=== PATIENT | male | born 1955 | race Caucasian/White ===

== ENCOUNTER 2020-08-18 13:11 | Emergency (ER) | payer SELFPAY ==
[2020-08-18 13:30] VITALS: BP 151/97; PULSE 117; RESP 16; TEMP 36.4; O2SAT 98; BMI 20.4
--- NOTE | 2020-08-18 13:37 | XR_ITS ---
PROCEDURE: XR FOOT LT MIN 3V CLINICAL INDICATION: R/O OSTEOMYELITIS Necrotic area in the plantar region COMPARISON: No exams were available for comparison FINDINGS: No fracture or dislocation. No lytic or blastic change. There is normal mineralization. There is a old fracture involving the mid shaft of the 5th metatarsal. No acute fracture or dislocation is evident. No lytic or blastic change. No soft tissue gas or radiopaque foreign body. Other findings:None. IMPRESSION: Healing 5th metatarsal fracture. Dictated by: Syed Ford MD 08/18/2020 14:23 Syed Ford MD in [place] 08/18/2020 14:23
[2020-08-18 14:30] VITALS: BP 149/94; PULSE 106; RESP 18; O2SAT 98
[2020-08-18 14:32] LABS: Basophils # 0.1 K/mm3 (0-0.2); Basophils % 0.4 % (0.1-2.0); Eosinophils # 0.1 K/mm3 (0.0-0.4); Eosinophils % 0.9 % (0.1-12.0); Hematocrit 49.1 % (42.0-52.0); Hemoglobin 16.5 g/dL (14.1-18.0); Lymphocytes # 2.6 K/mm3 (0.7-4.5); Lymphocytes % 19.9 % (10-50); Mean Corpuscular HGB Conc 33.5 g/dL (31.8-35.4); Mean Corpuscular Hemoglobin 31.1 pg (27.0-31.2); Mean Corpuscular Volume 92.8 fl (80-94); Mean Platelet Volume 6.9 fl (7.4-10.4); Monocytes # 0.5 K/mm3 (0.1-1.0); Neutrophils # 9.6 K/mm3 (1.8-7.8); Neutrophils % 74.9 % (37.0-80.0); Platelet Count 277 K/mm3 (142-424); Red Blood Count 5.29 M/mm3 (4.60-6.20); Red Cell Distribution Width 13.7 % (11.5-17.5); White Blood Count 12.9 K/mm3 (4.8-10.8)
[2020-08-18 14:34] LABS: Chloride 103 mmol/L (98-107)
[2020-08-18 14:35] LABS: Potassium 3.8 mmoL/L (3.5-5.1); Sodium 136 mmol/L (136-145)
[2020-08-18 14:37] LABS: Alanine Aminotransferase 19 U/L (12-78); Aspartate Amino Transferase 32 U/L (17-59); Blood Urea Nitrogen 12 mg/dl (9-20); Creatinine Clearance Estimated 75 mL/min (50-200); Estimated Glomerular Filt Rate 85 ml/min (>60); GFR (African American) 103 ML/MIN (>60)
[2020-08-18 14:38] LABS: Albumin/Globulin Ratio 1.4 (1.1-1.8); Alkaline Phosphatase 102 U/L (38-126); Anion Gap 12.8 mEq/L (5-15); Bilirubin,Total 0.7 mg/dl (0.2-1.3); Calcium 10.1 mg/dl (8.4-10.2); Carbon Dioxide 24 mmol/L (22.0-30.0); Globulin 3.5 g/dL (1.3-3.2); Glucose 160 mg/dl (74-100); Total Protein,Serum 8.5 g/dl (6.3-8.2)
--- NOTE | 2020-08-18 14:53 | HMH.EDGENADL ---
ED Disposition Clinical Impression: Cellulitis of left foot Ulcer of left heel Qualifiers: Non-pressure ulcer stage: limited to breakdown of skin Qualified Code(s): L97.421 - Non-pressure chronic ulcer of left heel and midfoot limited to breakdown of skin Disposition: Home, Self-Care Condition on Discharge: Good Instructions: Cellulitis Prescriptions: Sulfamethoxazole/Trimethoprim [Bactrim 400-80 mg (SS) Tablet] 1 tab PO BID 10 Days #20 tab Prescription Printed cephALEXin [cephALEXin 500mg capsule*] 500 mg PO QID 10 Days #40 cap Prescription Printed Referrals: Lilian Crenshaw DPM [Staff Physician] - - Critical Care Critical Care Time: No Attestation: On 08/18/20, the high probability of a clinically significant, sudden or life threatening deterioration of the following system(s) required my full and direct attention, intervention and personal management. The time I documented below is in addition to time spent performing reported procedures but includes the following listed in this critical care notation. Medical Decision Making - Medical Records Medical records reviewed: Yes: I reviewed the patient's medical records. - Parish Inquiry Pt receiving controlled substance: No Vital Signs: 08/18/20 13:30 08/18/20 14:30 08/18/20 15:00 Temperature 97.6 F Temperature Source Oral Pulse Rate 106 H 102 H Pulse Rate [Radial] 117 H Respiratory Rate 16 18 18 Blood Pressure 149/94 H 143/91 H Blood Pressure [Right Arm] 151/97 H Blood Pressure Mean 112 117 Blood Pressure Mean [Right Arm] 115 Blood Pressure Position [Right Arm] Sitting 02 Sat by Pulse Oximetry 98 98 96 Oxygen Delivery Method Room Air - Lab Data Lab Results 08/18/20 14:25: WBC 12.9 H, RBC 5.29, Hgb 16.5, Hct 49.1, MCV 92.8, MCH 31.1, MCHC 33.5, RDW 13.7, Plt Count 277, MPV 6.9 L, Neut % (Auto) 74.9, Lymph % (Auto) 19.9, [place] % (Auto) 4.0, Eos % (Auto) 0.9, Baso % (Auto) 0.4, Neut # (Auto) 9.6 H, Lymph # (Auto) 2.6, [place] # (Auto) 0.5, Eos # (Auto) 0.1, Baso # (Auto) 0.1 08/18/20 14:25: Sodium 136, Potassium 3.8, Chloride 103, Carbon Dioxide 24, Anion Gap 12.8, BUN 12, Creatinine 0.90, Estimated Creat Clear 75, Estimated GFR 85, Est GFR ( Amer) 103, Glucose 160 H, Calcium 10.1, Total Bilirubin 0.7, AST 32, ALT 19, Alkaline Phosphatase 102, Total Protein 8.5 H, Albumin 5.0, Globulin 3.5 H, Albumin/Globulin Ratio 1.4 Result diagrams: 08/18/20 14:25 08/18/20 14:25 Orders (Tests/Meds): ED MEDICATIONS Generic Name Dose Route Start Last Admin Trade Name Freq PRN Reason Stop Dose Admin Ceftriaxone Sodium 1 gm/ 50 mls @ 100 mls/hr 08/18/20 15:00 08/18/20 15:03 Sodium Chloride IV 09/01/20 14:59 100 mls/hr Q24H JORGE Administration Protocol Discontinued Medications Generic Name Dose Route Start Last Admin Trade Name Freq PRN Reason Stop Dose Admin Trimethoprim/Sulfamethoxazole 1 each 08/18/20 14:53 08/18/20 15:09 Sulfa/Trimethoprim 1 Tablet PO 08/18/20 14:54 1 each ONCE ONE Administration Protocol - Radiology Data #1 Image(s): Foot/Toes Image Reviewed: Yes I reviewed the patient's radiology results, Yes I have reviewed radiologist's interpretation FINDINGS: No fracture or dislocation. No lytic or blastic change. There is normal mineralization. There is a old fracture involving the mid shaft of the 5th metatarsal. No acute fracture or dislocation is evident. No lytic or blastic change. No soft tissue gas or radiopaque foreign body. Other findings:None. IMPRESSION: Healing 5th metatarsal fracture. - Reevaluation(s) Time: 15:43 Reevaluation #1: On reevaluation, the patient is feeling better. He does have evidence of a old healing metatarsal fracture. Patient does have findings consistent with cellulitis. I do believe he will benefit from wound care evaluation and podiatry. Patient was given initial dose antibiotics in the emergency department. He is to
[2020-08-18 15:00] VITALS: BP 143/91; PULSE 102; RESP 18; O2SAT 96
[2020-08-18 16:11] VITALS: BP 152/98; PULSE 78; RESP 16; TEMP 36.6; O2SAT 98
== END 2020-08-18 16:15 | disposition home or self-care (01) ==
PROVIDERS: Emergency Provider Emergency Medicine
DX: L03.116 Cellulitis of left lower limb (principal); L97.421 Non-pressure chronic ulcer of left heel and midfoot limited to breakdown of skin
CPT/HCPCS: 73630; 80053; 85025; 96365; 99282

== ENCOUNTER → 2020-08-25 10:07 | Outpatient (CLI) | payer SELFPAY ==
--- NOTE | 2020-08-25 10:09 | US_ITS ---
APPROVED REPORT Exam Type: Ankle to Brachial Index Track Watchman: Avelina Nicole RCS, RVS Indications Claudication: Non-healing Ulcer: Rest Pain: History of Smoking Decreased pulses-Left foot, Trophic nails Risk Factors Current Smoker Pressures/Indices Right Indices Left Indices Brachial 143.00 mmHg Brachial 148.00 mmHg Low Thigh 149.00 mmHg 1.01 Low Thigh 138.00 mmHg 0.93 Calf 148.00 mmHg 1.00 Calf 91.00 mmHg 0.61 Ankle(PT) 140.00 mmHg 0.95 Ankle(PT) 71.00 mmHg 0.48 Ankle(DP) 136.00 mmHg 0.92 Ankle(DP) 68.00 mmHg 0.46 Digit 107.00 mmHg 0.72 Digit 81.00 mmHg 0.55 Findings RT ZACH=0.95 LT ZACH=0.48 RT TPI=0.72 LT TPI=0.46 Grossly Abnormal left leg values. Dr. Crenshaw office notified Conclusion RT ZACH=0.95 LT ZACH=0.48 RT TPI=0.72 LT TPI=0.46 Severe left sided arterial disease Critical Notification Critical Value: Yes Physician Notified Date: 08/25/2020 Time: 11:34 Physician Name: Flower Response Time: 2min Report Read Back Electronically signed by : Syed Ford MD 09/01/2020 16:17:44
== END ==
PROVIDERS: Visit Provider Podiatrist
DX: R09.89 Other specified symptoms and signs involving the circulatory and respiratory systems (principal); M79.662 Pain in left lower leg
CPT/HCPCS: 93923

== ENCOUNTER 2020-08-25 13:51 | Inpatient (IN) | payer SELFPAY ==
[2020-08-25] VITALS (10 sets, daily range): BP systolic 124–150; BP diastolic 71–82; PULSE 78–106; RESP 16–20; TEMP 36.6–37; O2SAT 93–98; BMI 20.4; BMI 19.1
--- NOTE | 2020-08-25 13:54 | HMH.EDGENADL ---
ED Disposition Clinical Impression: Arterial leg ulcer Disposition: Admitted As Inpatient Condition on Discharge: Good Referrals: PCP,No [Primary Care Provider] - - Critical Care Critical Care Time: No Attestation: On , the high probability of a clinically significant, sudden or life threatening deterioration of the following system(s) required my full and direct attention, intervention and personal management. The time I documented below is in addition to time spent performing reported procedures but includes the following listed in this critical care notation. Medical Decision Making - Medical Records Medical records reviewed: Yes: I reviewed the patient's medical records. - Parish Inquiry Pt receiving controlled substance: No Vital Signs: 08/25/20 14:06 08/25/20 14:11 08/25/20 14:31 Temperature 98.6 F Temperature Source Oral Pulse Rate 101 H 96 H Pulse Rate [Radial] 101 H Respiratory Rate 18 Blood Pressure 145/78 H 129/82 Blood Pressure [Right Arm] 145/78 H Blood Pressure Mean 115 100 Blood Pressure Mean [Right Arm] 100 Blood Pressure Position [Right Arm] Sitting 02 Sat by Pulse Oximetry 97 98 96 Oxygen Delivery Method Room Air 08/25/20 15:00 08/25/20 15:15 Temperature Temperature Source Pulse Rate 91 H 92 H Pulse Rate [Radial] Respiratory Rate Blood Pressure Blood Pressure [Right Arm] Blood Pressure Mean Blood Pressure Mean [Right Arm] Blood Pressure Position [Right Arm] 02 Sat by Pulse Oximetry 96 96 Oxygen Delivery Method - Lab Data Lab Results 08/25/20 14:39: WBC 12.1 H, RBC 4.91, Hgb 15.1, Hct 45.1, MCV 91.8, MCH 30.8, MCHC 33.5, RDW 13.7, Plt Count 286, MPV 7.1 L, Neut % (Auto) 77.0, Lymph % (Auto) 18.0, [place] % (Auto) 3.9, Eos % (Auto) 0.7, Baso % (Auto) 0.4, Neut # (Auto) 9.3 H, Lymph # (Auto) 2.2, [place] # (Auto) 0.5, Eos # (Auto) 0.1, Baso # (Auto) 0.1 08/25/20 14:39: Sodium 134 L, Potassium 4.3, Chloride 102, Carbon Dioxide 23, Anion Gap 13.3, BUN 11, Creatinine 1.00, Estimated Creat Clear 75, Estimated GFR 75, Est GFR ( Amer) 91, Glucose 100, Calcium 9.6, Total Bilirubin 0.5, AST 29, ALT 17, Alkaline Phosphatase 89, C-Reactive Protein 4.6 H, Total Protein 8.2, Albumin 4.6, Globulin 3.6 H, Albumin/Globulin Ratio 1.3 08/25/20 14:39: Lactate 0.9 08/25/20 14:39: Procalcitonin 0.055 Result diagrams: 08/25/20 14:39 08/25/20 14:39 Orders (Tests/Meds): ED MEDICATIONS Discontinued Medications Generic Name Dose Route Start Last Admin Trade Name Freq PRN Reason Stop Dose Admin Iopamidol 100 ml 08/25/20 15:40 08/25/20 15:42 Iopamidol-370 (76%);100ml Bottle IV 08/25/20 15:41 100 ml ONCE ONE Administration Iopamidol 20 ml 08/25/20 15:40 08/25/20 15:42 Iopamidol-370 (76%); 50ml Vial IV 08/25/20 15:41 20 ml ONCE ONE Administration Sodium Chloride 50 ml 08/25/20 15:40 08/25/20 15:42 0.9 % Sodium Chloride 50 Ml Vial IV 08/25/20 15:41 50 ml ONCE ONE Administration Sodium Chloride 10 ml 08/25/20 15:40 08/25/20 15:42 Sodium Chloride 0.9% 10ml Syr (Rad Only) IV 08/25/20 15:41 10 ml ONCE ONE Administration Sodium Chloride 50 ml 08/25/20 15:41 08/25/20 15:42 0.9 % Sodium Chloride 50 Ml Vial IV 08/25/20 15:42 50 ml ONCE ONE Administration ORDERS Category Date Time Status CT angio abdomen/femoral Stat Cat Scan 08/25/20 14:25 Taken Consult to Podiatry [CONS] Routine Cons 08/25/20 15:15 Active Complete Blood Count Auto Diff Stat Lab 08/25/20 14:39 Results Erythrocyte Sedimentation Rate Stat Lab 08/25/20 14:39 Results Full Resp Panel w/COVID ([facility]) Routine Lab 08/25/20 14:45 Received Blood Culture Stat Micro 08/25/20 14:39 Received Medical Decision Narrative: 65-year-old male presenting with left heel ulceration. Concern due to nonhealing ulceration with findings consistent with peripheral artery disease so patient redirected to the ER. He has been on Bactrim and Ke
--- NOTE | 2020-08-25 14:25 | CT_ITS ---
Procedure: CT ANGIO ABDOMEN/FEMORAL CLINICAL HISTORY: R/O ABSCESS COMPARISON: No exams were available for comparison TECHNIQUE: IV Contrast: 100ml Isovue 370 Axial images obtained with sagittal and coronal reformats. All CT scans at the facility use one or more dose reduction, viz: automated exposure control, ma/kV adjustment per patient size (including targeted exams where dose is matched to indication, i.e. head), or iterative reconstruction technique. FINDINGS: Moderate atherosclerotic vascular calcification of the visualized abdominal aorta. Minor atherosclerotic calcification of the bilateral common iliac and internal iliac arteries. Bilateral common femoral, and superficial femoral arteries are unremarkable. The right popliteal artery, anterior tibial, posterior tibial and peroneal arteries are unremarkable and demonstrate 3 vessel runoff. There is near complete occlusion of the left popliteal artery. Reconstitution of flow is noted is noted in the proximal foreleg with demonstrable flow in the anterior tibial, posterior tibial and peroneal arteries through its entire extent up to the level of the left ankle, likely there is extensive subcutaneous soft tissue edema noted in the left lower extremity adjacent to the lateral aspect of the distal leg and foot. No evidence of rim enhancing fluid collections are noted. The visualized pelvic structures are unremarkable. Moderate fecal retention of the rectosigmoid colon. IMPRESSION: Near-complete occlusion of the left popliteal artery with reconstitution of flow in the anterior tibial, posterior tibial and peroneal arteries, likely secondary to collateral vessels. Fluid density noted in the lateral aspect of the ankle and dorsal lateral aspect of the left foot, may represent edema. No evidence of rim enhancing fluid collections or abscess formation. Dictated by: Lida Viera 08/25/2020 16:13 Lida Viera in [place] 08/25/2020 16:13
--- NOTE | 2020-08-25 14:26 | PC.NURSE ---
Pt back from CT
[2020-08-25 14:54] LABS: Adenovirus,PCR Not Detected (NotDetected); Bordetella Pertussis Not Detected (NotDetected); Chlamydophila Pneumoniae, PCR Not Detected (NotDetected); Coronavirus 19, PCR Not Detected (NotDetected); Coronavirus 229E Not Detected (NotDetected); Coronavirus NL63 Not Detected (NotDetected); Coronavirus OC43 Not Detected (NotDetected); Coronovirus HKU1,PCR Not Detected (NotDetected); Human Metapneumovirus Not Detected (NotDetected); Influenza A, PCR Not Detected (NotDetected); Influenza AH1, 2009 Not Detected (NotDetected); Influenza AH1, PCR Not Detected (NotDetected); Influenza AH3,PCR Not Detected (NotDetected); Influenza B, PCR Not Detected (NotDetected); Mycoplasma Pneumoniae, PCR Not Detected (NotDetected); Parainfluenza 1, PCR Not Detected (NotDetected); Parainfluenza 2, PCR Not Detected (NotDetected); Parainfluenza 3, PCR Not Detected (NotDetected); Parainfluenza 4, PCR Not Detected (NotDetected); Respiratory Syncytial Virus Not Detected (NotDetected); Rhinovirus/Enterovirus Not Detected (NotDetected)
[2020-08-25 15:01] LABS: Basophils # 0.1 K/mm3 (0-0.2); Basophils % 0.4 % (0.1-2.0); Eosinophils # 0.1 K/mm3 (0.0-0.4); Eosinophils % 0.7 % (0.1-12.0); Hematocrit 45.1 % (42.0-52.0); Hemoglobin 15.1 g/dL (14.1-18.0); Lymphocytes # 2.2 K/mm3 (0.7-4.5); Mean Corpuscular HGB Conc 33.5 g/dL (31.8-35.4); Mean Corpuscular Hemoglobin 30.8 pg (27.0-31.2); Mean Corpuscular Volume 91.8 fl (80-94); Mean Platelet Volume 7.1 fl (7.4-10.4); Monocytes # 0.5 K/mm3 (0.1-1.0); Monocytes % 3.9 % (1.7-9.3); Neutrophils # 9.3 K/mm3 (1.8-7.8); Platelet Count 286 K/mm3 (142-424); Red Blood Count 4.91 M/mm3 (4.60-6.20); Red Cell Distribution Width 13.7 % (11.5-17.5); White Blood Count 12.1 K/mm3 (4.8-10.8)
[2020-08-25 15:06] LABS: Alanine Aminotransferase 17 U/L (12-78); Albumin Level 4.6 g/dl (3.5-5.0); Albumin/Globulin Ratio 1.3 (1.1-1.8); Alkaline Phosphatase 89 U/L (38-126); Anion Gap 13.3 mEq/L (5-15); Aspartate Amino Transferase 29 U/L (17-59); Bilirubin,Total 0.5 mg/dl (0.2-1.3); Blood Urea Nitrogen 11 mg/dl (9-20); Calcium 9.6 mg/dl (8.4-10.2); Carbon Dioxide 23 mmol/L (22.0-30.0); Chloride 102 mmol/L (98-107); Creatinine Clearance Estimated 75 mL/min (50-200); Estimated Glomerular Filt Rate 75 ml/min (>60); GFR (African American) 91 ML/MIN (>60); Globulin 3.6 g/dL (1.3-3.2); Glucose 100 mg/dl (74-100); Potassium 4.3 mmoL/L (3.5-5.1); Sodium 134 mmol/L (136-145); Total Protein,Serum 8.2 g/dl (6.3-8.2)
[2020-08-25 15:07] LABS: Lactic Acid 0.9 mmol/L (0.7-2.1)
[2020-08-25 15:11] LABS: C-Reactive Protein 4.6 mg/L (0-4)
[2020-08-25 15:25] LABS: Procalcitonin 0.055 ng/mL (0.0-2.0)
--- NOTE | 2020-08-25 15:57 | PC.NURSE ---
HOUSE CALLED FOR ADMISSION
--- NOTE | 2020-08-25 16:24 | HMH.ORTHOCON ---
*Admission Date: 08/25/20 *Reason for consult:: Left foot cellulitis, ulcer, PAD *History of present illness: 65-year-old male presenting with left heel ulceration. Concern due to nonhealing ulceration with findings consistent with peripheral artery disease so patient redirected to the ER. He has been on Bactrim and Keflex for the past several days without improvement. The cellulitis is spreading up his left lower extremity. He does have dopplerable pulses DP and PT in the left and has no motor/sensory deficits. At this time, differential diagnosis does include arterial ulcer vs. cellulitis vs osteomyelitis vs. myositis. No signs of necrotizing fasciitis on exam. Lab work initiated with ESR/CRP. X-rays will be obtained to ensure no findings consistent with ulceration. Based on concerning findings including ZACH recorded earlier at the permit agent office of 0.48 in the lower extremity on the left a CT angiography abdomen/femoral with bilateral lower extremity runoff has been ordered as patient may need further intervention during hospitilization. Antibiotics ordered. No signs of sepsis on initial exam. Vancomycin and Zosyn will be given after blood cultures obtained. Lactic acid also ordered with reflex pending if elevated. At this time, lab work relatively reassuring and x-ray demonstrates no deeper space infection. Patient still has been given IV antibiotics due to his failure of p.o. antibiotics. I did discuss this with on-call podiatry. Recommendations for PAD be worked up and possibly intervened upon to aid in healing of nonhealing left heel ulcer. CT angiography with runoff pending. Discussed this with admitting hospitalist who is agreed to admit this patient. Patient verbalized understanding agrees. Agree with the ED note as above. Patient was seen in the office and in the ER by myself. Plan for admission per Dr. Padilla/Dr. Cunha. Patient will need left ankle/foot CT to evaluate for left heel osteomyelitis and ankle abscess. Plan to hold on surgical intervention until cardio sees the patient. [facility] History I have reviewed the patient's past medical history: Yes Medical History: Reports:: Peripheral Artery Disease *Have you ever received a pneumonia vaccine?: Yes *Have you received a flu vaccine this season?: Yes Laterality Cases: Right: Arthroscopy Knee Amputation: No Fractures: Yes (Left 5th metatarsal) - *Social History Smoking Status: Current every day smoker Tobacco Type: cigarettes # Packs/Day (cigarettes): 1 Alcohol Intake: current Alcohol Intake Frequency:: 0-2 drinks per day *Occupational Status:: previously employed, retired *Travel in the last 8 weeks: None Family Hx:: Diabetes, Heart Attack Review of Systems - Review of Systems Review of systems:: pertinent systems reviewed and negative unless documented below - Constitutional Reports malaise, Denies chills, Denies fever(s) - Eyes Denies blurry vision - ENT Denies abnormal hearing - *Cardiovascular Denies chest pain, Denies shortness of breath - *Respiratory Denies cough - *Gastrointestinal Reports nausea, Denies vomiting - *Genitourinary Denies difficulty urinating - *Musculoskeletal Reports joint swelling - Integumentary/Breasts Reports hair loss, Reports nail changes, Reports change in skin color, Reports dry skin, Reports redness, Reports new lesions, Reports skin ulcer, Reports wounds - *Neurologic Denies frequent falls - Psychiatric Denies abnormal sleep pattern - Endocrine Denies cold intolerance - Hematologic/Lymphatic Reports easy bruising - Allergic/Immunologic Reports GI upset with certain foods Meds Home Medications Medication Instructions Recorded Confirmed Type Sulfamethoxazole/Trimethoprim 1 tab PO BID 08/25/20 08/25/20 History [Bactrim 400-80 mg (SS) Tablet] cephALEXin [cephALEXin 500mg 500 mg PO QID 08/25/20 08/25/20 History capsule*] Allergies Allergy/AdvReac Type Severity Reaction Status
--- NOTE | 2020-08-25 16:29 | P.CONPHA_ITS ---
- Pharmacy Consult Date: 08/25/20 Time: 16:30 Referring provider: DR. HANNAH Reason for Consult:: VANCOMYCIN DOSING Allergies and ADEs:: Allergies Allergy/AdvReac Type Severity Reaction Status Date / Time No Known Allergies Allergy Verified 08/25/20 09:17 Home Medications:: Home Medications Medication Instructions Recorded Confirmed Type Sulfamethoxazole/Trimethoprim 1 tab PO BID 08/25/20 08/25/20 History [Bactrim 400-80 mg (SS) Tablet] cephALEXin [cephALEXin 500mg 500 mg PO QID 08/25/20 08/25/20 History capsule*] Height: 1.85 m Weight: 70.307 kg Laboratory Results:: Laboratory Results - last 24 hr 08/25/20 14:39: WBC 12.1 H, RBC 4.91, Hgb 15.1, Hct 45.1, MCV 91.8, MCH 30.8, MCHC 33.5, RDW 13.7, Plt Count 286, MPV 7.1 L, Neut % (Auto) 77.0, Lymph % (Auto) 18.0, [place] % (Auto) 3.9, Eos % (Auto) 0.7, Baso % (Auto) 0.4, Neut # (Auto) 9.3 H, Lymph # (Auto) 2.2, [place] # (Auto) 0.5, Eos # (Auto) 0.1, Baso # (Auto) 0.1 08/25/20 14:39: Sodium 134 L, Potassium 4.3, Chloride 102, Carbon Dioxide 23, Anion Gap 13.3, BUN 11, Creatinine 1.00, Estimated Creat Clear 75, Estimated GFR 75, Est GFR ( Amer) 91, Glucose 100, Calcium 9.6, Total Bilirubin 0.5, AST 29, ALT 17, Alkaline Phosphatase 89, C-Reactive Protein 4.6 H, Total Protein 8.2, Albumin 4.6, Globulin 3.6 H, Albumin/Globulin Ratio 1.3 08/25/20 14:39: Lactate 0.9 08/25/20 14:39: Procalcitonin 0.055 Assessment and Plan - Assessment and plan all Dx Assessment and Plan for all problems:: Objective: Patient: Floor: Age: 65 yo Serum creatinine: 1 mg/dL Height: 73.0 Inches Weight (kg): 70 Assessment: IBW (kg): 79.90 Dosing wt(kg): 70 Estimated Creatinine clearance (ml/min): 74.9 CRCL method: Cockcroft and Gault using ibw(default). Drug selected: Vancomycin Loading dose (mg): 0 Vd (liters): 56.0 (factor used: 0.8 L/kg) Felix (hr-1): 0.067 Half life (hrs): 10.35 Recommended dose: 1250 mg Interval: 12 hrs Infusion time (hrs): 2.0 Predicted peak (mcg/mL): 37.8 Predicted trough (mcg/mL): 19.34 Total body weight is being used for vancomycin dosing. Recommendations: Give Vancomycin 1250 mg q 12 hrs with an expected Cpeak of 37.8 mcg/ml and an expected Ctrough of 19.34 mcg/ml
[2020-08-25 16:31] LABS: Erythrocyte Sedimentation Rate 10 mm/hr (0-20)
--- NOTE | 2020-08-25 17:14 | PC.NURSE ---
Report given to Rosalie MCCURDY
--- NOTE | 2020-08-25 17:55 | HMH.HP ---
*Admission Date: 08/25/20 *Chief complaint: Left heel ulcer/PAD *History of present illness: 65-year-old male presenting with left heel ulceration. Concern due to nonhealing ulceration with findings consistent with peripheral artery disease so patient redirected to the ER. He has been on Bactrim and Keflex for the past several days without improvement. The cellulitis is spreading up his left lower extremity. He does have dopplerable pulses DP and PT in the left and has no motor/sensory deficits. At this time, differential diagnosis does include arterial ulcer vs. cellulitis vs osteomyelitis vs. myositis. No signs of necrotizing fasciitis on exam. Lab work initiated with ESR/CRP. X-rays will be obtained to ensure no findings consistent with ulceration. Based on concerning findings including ZACH recorded earlier at the computer network engineer office of 0.48 in the lower extremity on the left a CT angiography abdomen/femoral with bilateral lower extremity runoff has been ordered as patient may need further intervention during hospitilization. Antibiotics ordered. No signs of sepsis on initial exam. Vancomycin and Zosyn will be given after blood cultures obtained. Lactic acid also ordered with reflex pending if elevated. At this time, lab work relatively reassuring and x-ray demonstrates no deeper space infection. Patient still has been given IV antibiotics due to his failure of p.o. antibiotics. I did discuss this with on-call podiatry. Recommendations for PAD be worked up and possibly intervened upon to aid in healing of nonhealing left heel ulcer. CT angiography with runoff pending. Discussed this with admitting hospitalist who is agreed to admit this patient. Patient verbalized understanding agrees. Agree with the ED note as above. Patient was seen in the office and in the ER by myself. Plan for admission per Dr. Padilla/Dr. Cunha. Patient will need left ankle/foot CT to evaluate for left heel osteomyelitis and ankle abscess. Plan to hold on surgical intervention until cardio sees the patient. Above note per emergency department and podiatry. Patient is without medical care over the past decades. Has been a heavy smoker but takes no medications, has not been hospitalized in the past years. 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 Noticed the heel ulcer several days ago. [facility] History I have reviewed the patient's past medical history: Yes Medical History: Reports:: Peripheral Artery Disease *Have you ever received a pneumonia vaccine?: Yes *Have you received a flu vaccine this season?: Yes Laterality Cases: Right: Arthroscopy Knee Amputation: No Fractures: Yes (Left 5th metatarsal) - *Social History Smoking Status: Current every day smoker Tobacco Type: cigarettes # Packs/Day (cigarettes): 1 Alcohol Intake: current Alcohol Intake Frequency:: 0-2 drinks per day *Occupational Status:: previously employed, retired *Travel in the last 8 weeks: None Family Hx:: Diabetes, Heart Attack Review of Systems - Review of Systems Review of systems:: pertinent systems reviewed and negative unless documented below - *Neurologic Denies abnormal hearing, Denies frequent falls Meds Home Medications Medication Instructions Recorded Confirmed Type Sulfamethoxazole/Trimethoprim 1 tab PO BID 08/25/20 08/25/20 History [Bactrim 400-80 mg (SS) Tablet] cephALEXin [cephALEXin 500mg 500 mg PO QID 08/25/20 08/25/20 History capsule*] Allergies Allergy/AdvReac Type Severity Reaction Status Date / Time No Known Allergies Allergy Verified 08/25/20 09:17 Exam Vital signs and Labs for Last 24 Hours: Temp Pulse Resp BP Pulse Ox 98.6 F 106 H 18 138/81 97 08/25/20 14:11 08/25/20 16:30 08/25/20 14:11 08/25/20 16:30 08/25/20 16:30 Laboratory Results - last 24 hr 08/25/20 14:39: WBC 12.1 H, RBC 4.91, Hgb 15.1, Hct 45.1, MCV 91.8, MCH 30.8, MCHC 33.5, RDW 13.7, Plt Count 286, MPV 7.1 L, Neut % (Auto) 77.0, Lymph % (Au
--- NOTE | 2020-08-25 18:20 | PC.WOUNDNOTE ---
Wound Location: L inner heel (unstagable) Length: 5 cm Width: 5 cm Depth:n/a Undermining Y/N: n/a Tunneling cm:unk Inflammation/swelling Y/N: Yes Pain and/or tenderness Y/N: Yes Exudate: Serosanguinous Amount: Scant Odor Y/N: Yes
--- NOTE | 2020-08-25 18:22 | PC.WOUNDNOTE ---
Wound Location: Stage II to outter left heel Length: 2.5cm Width: 2 cm Exudate: n/a Odor Y/N: N
[2020-08-26] VITALS (34 sets, daily range): BP systolic 90–144; BP diastolic 51–98; PULSE 66–95; RESP 12–24; TEMP 6.1–43; O2SAT 92–100; BMI 19.7
--- NOTE | 2020-08-26 | IR_ITS ---
APPROVED REPORT Patient Location: Inpatient [facility] Receiver: MARISABEL Valdez RT (R) PROCEDURES Right femoral arterial access Catheter placed in the left popliteal artery Left popliteal artery antegrade angiogram Stent deployment to the left anterior tibialis artery Stent deployment to the left PT trunk Stent deployment to the left popliteal artery INDICATION Acutely occluded left popliteal artery PT trunk and anterior tibialis artery, Limb threatening ischemia, Chu claudication class V Informed consent was obtained prior to the procedure. COMPLICATIONS None Estimated Blood Loss: Less than 10 mls TECHNIQUE 1% lidocaine used to anesthetize the right femoral groin. The right femoral artery was accessed via the Seldinger technique. Using fluoroscopic guidance the rim catheter was advanced from the aorta into the left common iliac artery and then advanced into the left superficial femoral artery. The catheter was then advanced and left popliteal artery angiography was performed. Following this therapeutic heparin was administered and the 5 [place] femoral sheath was removed and replaced with a 6 [place] destination sheath which ended into the left superficial femoral artery. An advantage wire was used to push through the occlusion of the popliteal artery and a 4 mm x 60 mm balloon was dilated throughout the popliteal artery the PT trunk and extending into the AT. Following this a 5 mm x 120 mm self-expanding stent was deployed in the proximal anterior tibialis artery extending into the PT trunk and the distal popliteal artery. A 4 mm balloon was then used to dilate the stent. An additional 5 mm x 120 mm self-expanding stent was then placed proximal to this and then deployed. Excellent angiographic results were obtained with excellent inline flow into the foot with widely patent popliteal artery PT trunk anterior tibialis artery posterior tibialis artery and peroneal artery. After achieving excellent angiographic results the apparatus was removed the groin was reprepped closure changed sheath was removed good hemostasis was achieved using Perclose device patient was transferred to the postop putting in stable condition ANGIOGRAPHIC RESULTS The left popliteal artery is bluntly occluded At the end of the procedure the left popliteal artery PT trunk anterior tibialis artery peroneal artery and posterior tibialis artery were widely patent with inline flow into the left foot IMPRESSION Peripheral artery disease as described above successful revascularization PLAN 1. Plavix and aspirin for the next 30 days followed by Xarelto 2.5 twice daily plus aspirin 81 mg daily 2. LDL less than 55 3. Immediate cessation of tobacco products 4. Physical therapy 5. Wound care per Dr. Crenshaw's discretion 6. Avoid tourniquets perioperatively 7. Over the next 30 days it would be ideal if patient's leg could remain straight with minimal bending of the knee while the stent is epithelializing Electronically signed by : Derrell Beckford, 08/26/2020 12:11:58
--- NOTE | 2020-08-26 03:26 | PC.NURSE ---
No acute changes overnight, pt slept on and off through the night. Lungs CTA, on room air. Pt c/o of pain in LLE, tylenol and norco given per MAR with desired effects. Drsg on LLE, CDI. bowel sounds x4, abd soft and nontender. Pt NPO since midnight. Pt able to ambulate independently in room. VSS, call light in reach, no concerns at this time.
--- NOTE | 2020-08-26 06:40 | HMH.ACPN2 ---
Internal Medicine - PN: Subj *Date: 08/26/20 *Time: 08:50 Interval history: Pleasant this morning. Sitting in bedside chair. Afebrile. Continues to have left foot pain, left foot read on entering the room. N.p.o. with plan for runoff study today. Cardiology consulted, appreciate their assistance. Patient denies chest pain or shortness of breath. Hemodynamically stable. Discussion today about goals of care. Patient clear that if his heart stops, he stops breathing, he dies. He wants to be allowed to pass naturally. He will be transitioned to DNR status. Exam Vital signs and Labs for Last 24 Hours: Temp Pulse Resp BP Pulse Ox 97.9 F 79 17 125/91 H 96 08/26/20 03:47 08/26/20 03:47 08/26/20 03:47 08/26/20 03:47 08/26/20 03:47 Laboratory Results - last 24 hr 08/25/20 14:39: WBC 12.1 H, RBC 4.91, Hgb 15.1, Hct 45.1, MCV 91.8, MCH 30.8, MCHC 33.5, RDW 13.7, Plt Count 286, MPV 7.1 L, Neut % (Auto) 77.0, Lymph % (Auto) 18.0, Bracken % (Auto) 3.9, Eos % (Auto) 0.7, Baso % (Auto) 0.4, Neut # (Auto) 9.3 H, Lymph # (Auto) 2.2, Bracken # (Auto) 0.5, Eos # (Auto) 0.1, Baso # (Auto) 0.1, ESR 10 08/25/20 14:39: Sodium 134 L, Potassium 4.3, Chloride 102, Carbon Dioxide 23, Anion Gap 13.3, BUN 11, Creatinine 1.00, Estimated Creat Clear 75, Estimated GFR 75, Est GFR ( Amer) 91, Glucose 100, Calcium 9.6, Total Bilirubin 0.5, AST 29, ALT 17, Alkaline Phosphatase 89, C-Reactive Protein 4.6 H, Total Protein 8.2, Albumin 4.6, Globulin 3.6 H, Albumin/Globulin Ratio 1.3 08/25/20 14:39: Lactate 0.9 08/25/20 14:39: Procalcitonin 0.055 08/25/20 14:45: Chlamy pneumoniae PCR Not detected, Adenovirus (PCR) Not detected, B. pertussis DNA (PCR) Not detected, Coronavirus OC43 (PCR) Not detected, Coronavirus HKU1 (PCR) Not detected, Coronavirus 229E (PCR) Not detected, SARS-CoV-2 (PCR) Not detected, Coronavirus NL63 (PCR) Not detected, Human Metapneumovir PCR Not detected, Influenza A (H1) PCR Not detected, Influ A (H1N1/09) PCR Not detected, Influenza A (H3) PCR Not detected, Influenza Type A (PCR) Not detected, Influenza Type B (PCR) Not detected, M. pneumoniae (PCR) Not detected, Parainfluenza 1 (PCR) Not detected, Parainfluenza 2 (PCR) Not detected, Parainfluenza 3 (PCR) Not detected, Parainfluenza 4 (PCR) Not detected, RSV (PCR) Not detected, Entero/Rhino (PCR) Not detected I & O for Last 24 hours: Intake & Output 08/23/20 08/24/20 08/25/20 08/26/20 23:59 23:59 23:59 23:59 Intake Total 240 / 240 Balance 240 / 240 Weight 65.771 kg 67.585 kg Narrative: - *Routine HEENT Exam Head: Present: normocephalic Eye: Present: EOMI, PERRL ENT: Present: mucous membranes moist, edentulous - *Routine Neck Exam Present: supple. Absent: lymphadenopathy - *Routine Respiratory Exam Present: CTA bilaterally - *Routine Cardiovascular Exam Present: RRR - *Routine Abdominal Exam Present: soft, normoactive bowel sounds. Absent: tenderness - *Routine Extremities Exam Absent: cyanosis, clubbing, edema Comments: Onychomycosis on toenails. Right foot pulses feel normal. Left has absent pulses, large medial heel ulcer as previously described, rubor and pain in the distal foot. - *Routine Skin Exam Present: warm. Absent: rash - *Routine Neurological Exam Present: alert, oriented X3 Assessment and Plan (1) Left leg cellulitis Status: Acute Category: Medical Code(s): L03.116 - Cellulitis of left lower limb (2) Peripheral arterial disease Status: Acute Category: Medical Code(s): I73.9 - Peripheral vascular disease, unspecified (3) Cellulitis of left foot Status: Acute Category: Medical Code(s): L03.116 - Cellulitis of left lower limb (4) Ulcer of left heel Status: Acute Qualifiers: Non-pressure ulcer stage: unspecified non-pressure ulcer stage Qualified Code(s): L97.429 - Non-pressure chronic ulcer of left heel and midfoot with unspecified severity Category: Medical Code(s): L97.429 - Non
--- NOTE | 2020-08-26 07:14 | P.CONPHA_ITS ---
[facility] VTE Monitoring - Patient Demographics Admission date: 08/26/20 Report Date: 08/26/20 Time: 07:14 Allergies/Adverse Reactions: Patient Allergies No Known Allergies Allergy (Verified 08/25/20 09:17) Height: 1.85 m Weight: 67.585 kg Patient Problems: Current Active Problems Ulcer of left heel (Acute) Cellulitis of left foot (Acute) Arterial leg ulcer (Acute) Left leg cellulitis (Acute) Peripheral arterial disease (Acute) Gangrene of left foot (Acute) Abnormal ankle brachial index (ZACH) (Acute) - VTE Risk Labs: VTE Related Lab Results Hgb 15.1 g/dL (14.1-18.0) 08/25/20 14:39 Hct 45.1 % (42.0-52.0) 08/25/20 14:39 Plt Count 286 K/mm3 (142-424) 08/25/20 14:39 BUN 11 mg/dl (9-20) 08/25/20 14:39 Creatinine 1.00 mg/dl (0.66-1.25) 08/25/20 14:39 Estimated Creat Clear 75 mL/min (50-200) 08/25/20 14:39 Was VTE Risk Assessment Performed: Yes VTE Score: 3 VTE Risk Level: Low Risk Clinical Trial Participant: No - Prophylaxis VTE Prophylaxis Ordered?: Yes Types of VTE Prophylaxis: TEDS Knee High
--- NOTE | 2020-08-26 07:30 | HMH.CNCARD ---
History of Present Illness Consult date: 08/26/20 Requesting physician: Alen Cunha Chief complaint: Left heel ulcer Additional Medical History:: 1. Tobacco use, 1 pack/day for greater than 40 years 2. Nonhealing left heel ulcer with nearly occluded popliteal artery on CT angiogram of the lower extremities. 07/2020 History of present illness: 65-year-old male presenting with left heel ulceration. Concern due to nonhealing ulceration with findings consistent with peripheral artery disease so patient redirected to the ER. He has been on Bactrim and Keflex for the past several days without improvement. The cellulitis is spreading up his left lower extremity. He does have dopplerable pulses DP and PT in the left and has no motor/sensory deficits. At this time, differential diagnosis does include arterial ulcer vs. cellulitis vs osteomyelitis vs. myositis. No signs of necrotizing fasciitis on exam. Lab work initiated with ESR/CRP. X-rays will be obtained to ensure no findings consistent with ulceration. Based on concerning findings including ZACH recorded earlier at the mobile equipment servicer office of 0.48 in the lower extremity on the left a CT angiography abdomen/femoral with bilateral lower extremity runoff has been ordered as patient may need further intervention during hospitilization. Antibiotics ordered. No signs of sepsis on initial exam. Vancomycin and Zosyn will be given after blood cultures obtained. Lactic acid also ordered with reflex pending if elevated. At this time, lab work relatively reassuring and x-ray demonstrates no deeper space infection. Patient still has been given IV antibiotics due to his failure of p.o. antibiotics. I did discuss this with on-call podiatry. Recommendations for PAD be worked up and possibly intervened upon to aid in healing of nonhealing left heel ulcer. CT angiography with runoff pending. Discussed this with admitting hospitalist who is agreed to admit this patient. Patient verbalized understanding agrees. Agree with the ED note as above. Patient was seen in the office and in the ER by myself. Plan for admission per Dr. Padilla/Dr. Cunha. Patient will need left ankle/foot CT to evaluate for left heel osteomyelitis and ankle abscess. Plan to hold on surgical intervention until cardio sees the patient. Above note per emergency department and podiatry. Patient is without medical care over the past decades. Has been a heavy smoker but takes no medications, has not been hospitalized in the past years. 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 Noticed the heel ulcer several days ago. The above per Dr. Cunha Above account confirmed by patient. He always wears boots and doesn't recall any injury to the left heel recently. Discussed recommendations for LE angiogram for possible intervention of left popliteal to aid in healing of the left heel ulcer. All questions answered. Pt agrees to proceed. [facility] History Medical History: Reports:: Peripheral Artery Disease *Have you ever received a pneumonia vaccine?: No *Have you received a flu vaccine this season?: No Laterality Cases: Right: Arthroscopy Knee Amputation: No Fractures: Yes (Left 5th metatarsal) - *Social History Smoking Status: Current every day smoker Tobacco Type: cigarettes # Packs/Day (cigarettes): 1 Alcohol Intake: never Alcohol Intake Frequency:: 0-2 drinks per day *Occupational Status:: retired Housing: house Household Members: none *Travel in the last 8 weeks: None Family Hx:: No significant family history Meds Home Medications Medication Instructions Recorded Confirmed Type Sulfamethoxazole/Trimethoprim 1 tab PO BID 08/25/20 08/25/20 History [Bactrim 400-80 mg (SS) Tablet] cephALEXin [cephALEXin 500mg 500 mg PO QID 08/25/20 08/25/20 History capsule*] Allergies Allergy/AdvReac Type Severity Reaction Status Date / Time No Known Allergies Allergy Verified 08/25/20 09:17 Exam Vital signs and Labs for
--- NOTE | 2020-08-26 07:41 | CA_ITS ---
APPROVED REPORT EXAM: Comprehensive 2D, Doppler, and color-flow Echocardiogram Manager Client: India Huang CRT Ht: 6 ft 0 in Wt: 149lbs BSA: 1.88 BP: 126/79 mmHg Indications: pre-op L POP occluded on CTA, gangrene, non healing foot ulcer 2D Dimensions LVOT 1.99 cm (M/F) 1.5-2.5 LA Volume 30.80 mL LA Volume Index 16.40 mL/m2 (M/F) 16-34 M-Mode Dimensions RVDd 2.36 cm (0.9-2.6) LA Diam 3.19 cm (1.9-4.0) LVDd 4.18 cm (3.5-5.7) Ao Diam 3.64 cm (2.0-3.7) LVDs 3.07 cm (3.5-5.7) IVSd 1.50 cm (0.6-1.1) PWd 1.04 cm (0.6-1.1) EF (Teich) 52.40% FS 26.60% EDV (Teich) 77.70 mL TAPSE 4.12 (<1.7) ESV (Teich) 37.00 mL LV Diastology E Decel Time 197.00 (160-240 msec) E/A Ratio 0.75 MED E' 9.30 (< 7 cm/sec) MED A' 11.80 cm/s E'/MED E' Ratio 5.95 (>14) LAT E' 11.60 (<10 cm/sec) LAT A' 12.90 cm/s E/LAT E' Ratio 4.77 (>14) Aortic Valve AO Peak GR. 5.80 mmHg Mitral Valve MV A Velocity 74.00 (40-130 cm/s) E/A Ratio 0.75 MV Decel. Time 197.00 (160-240 ms) Tricuspid Valve TR P. Velocity 174.00 cm/s RAP Estimate 10.00 mmHg RVSP 22.00 mmHg Left Ventricle Left atrium is mildly enlarged, left ventricle is normal size, left ventricle wall thickness is upper limit of normal, there is preserved left ventricular systolic function, visually estimated ejection fraction 55% with no regional wall motion abnormality, grade 1 diastolic dysfunction seen without tissue Doppler evidence of raise left atrial pressure. Right Ventricle Right atrium and right ventricle are normal size and contractility. Aortic Valve Aortic valve is minimally thickened and fibrosed, there is no aortic stenosis or aortic insufficiency. Mitral Valve Mitral valve grossly normal, there is trace mitral regurgitation. Tricuspid Valve Tricuspid valve grossly normal, there is trace tricuspid regurgitation, tricuspid regurgitation jet velocity is inadequate for calculation of the right ventricular systolic pressure. Pulmonic Valve Pulmonic valve is poorly visualized. Great Vessels Aortic root is normal size. Pericardium No significant pericardial effusion noted. Conclusion 1. Mildly enlarged left atrium, normal left ventricular size, visually estimated ejection fraction 55% with no regional wall motion abnormality, grade 1 diastolic dysfunction seen without tissue Doppler evidence of raise left atrial pressure. 2. Trace mitral and tricuspid regurgitation. 3. No significant pericardial effusion noted. Electronically signed by : Sonido Reeder, 08/26/2020 16:14:05
--- NOTE | 2020-08-26 08:21 | HMH.ORTHPN ---
Subjective Date: 08/26/20 Time: 07:30 Principal diagnosis: Left PAD, heel ulcer, gangrene Interval history: Patient is resting comfortably sitting in the chair bedside. He reports pain to the left lower extremity. He denies nausea vomiting, fever or chills. PN: Obj Ex Vital signs: Temp Pulse Resp BP Pulse Ox 98.0 F 79 18 126/79 96 08/26/20 07:25 08/26/20 07:25 08/26/20 07:25 08/26/20 07:25 08/26/20 07:25 - Constitutional no acute distress - Routine HEENT Exam Head: Present: normocephalic - Routine Neck Exam Present: supple - Routine Respiratory Exam Absent: respiratory distress - Routine Cardiovascular Exam Present: RRR - Routine Abdominal Exam Present: soft - Detailed Lower Extremity Exam Bottom foot image: 1 - Non-palpable pedal pulses noted to left foot. Weakly palpable right pedal pulses. Monophasic PT, right > left. Capillary refill time delayed b/l. Skin temperature cool to b/l feet. Dusky blue cold toes. Skin is cold and bluish discoloration to the toes. There is an ulcer noted to the left heel. Wound Location: Stage II to outter left heel. 2.5x2x0.1cm. Unstageable left heel pressure ulcer, 5x5cm. The ulcer has gangrene noted with heather wound erythema and edema. Cellulitis extends to the ankle. There is pain and fluctuance to the left heel and left lateral ankle. No opening with drainage. Suspect left ankle abscess. Several small abrasion, arterial lesions to the LLE. Suspect PAD and vascular insufficiency. RLE has no open ulcers, but some cellulitis noted. Musculoskeletal: muscle strength wnl b/l, moderate arch height b/l, no pain noted with active or passive ROM of the ankle, STJ or midtarsal joints. Decreased ankle joint ROM secondary to tight Achilles tendon, gastroc equinus noted. PIPJ semi rigid contractures 2-5 b/l. Pain to the left heel and lateral ankle. B/L LE edema and cellulitis. - Routine Neurological Exam Present: alert, oriented X3 - Routine Psychiatric Exam Present: normal affect Progress Note: A&P (1) Left leg cellulitis Status: Acute (2) Peripheral arterial disease Status: Acute (3) Cellulitis of left foot Status: Acute (4) Ulcer of left heel Status: Acute (5) Gangrene of left foot Status: Acute (6) Abnormal ankle brachial index (ZACH) Status: Acute (7) Tobacco use Status: Acute Assessment and Plan for All Diagnoses:: B/L LE cellulitis, Infected Wound: left heel pressure ulcer, left ankle abscess: X-rays 3 views of left foot taken 08/18/20 evaluated by myself. Report noted. FINDINGS: No fracture or dislocation. No lytic or blastic change. There is normal mineralization. There is a old fracture involving the mid shaft of the 5th metatarsal. No acute fracture or dislocation is evident. No lytic or blastic change. No soft tissue gas or radiopaque foreign body. Other findings: None. IMPRESSION: Healing 5th metatarsal fracture. Labs, 08/18/20: wbc 12.9, neut #9.6, creatinine 0.9, gfr 85, glucose 160 08/25/20, In office glucose finger stick: 130 08/25/20: wbc 12.1, neut #9.3, esr 10, crp 4.6, creatinine 1.0, gfr 75, glucose 100 ABIs B/L LE, 08/25/20 Findings: RT ZACH=0.95 LT ZACH=0.48, RT TPI=0.72 LT TPI=0.46 Grossly Abnormal left leg values. I discussed with the patient the importance of proper hygiene and maintaining a clean healthy wound bed to avoid the infection spreading. The wound was unstageable, pressure ulcer. There was no drainage and purulence noted. Wound culture not obtained. Heather-wound cellulitis noted. Non-palpable popliteal lymph nodes. 1. Dressing applied: betadine, dry sterile dressing 2. Wound care instructions given: change dressing daily 3. Continue broad spectrum IV abx (Vanco, Zosyn) 4. Discussed surgery for left ankle I&D for abscess, foot wound debridement, possible application of wound vac 5. Consent signed and on chart 6. NPO since midnight,
[2020-08-26 08:37] LABS: Chloride 104 mmol/L (98-107)
[2020-08-26 08:38] LABS: Potassium 4.2 mmoL/L (3.5-5.1); Sodium 133 mmol/L (136-145)
[2020-08-26 08:40] LABS: Alanine Aminotransferase 20 U/L (12-78); Albumin Level 4.4 g/dl (3.5-5.0); Albumin/Globulin Ratio 1.4 (1.1-1.8); Alkaline Phosphatase 99 U/L (38-126); Anion Gap 12.2 mEq/L (5-15); Aspartate Amino Transferase 37 U/L (17-59); Bilirubin,Total 0.7 mg/dl (0.2-1.3); Blood Urea Nitrogen 10 mg/dl (9-20); Carbon Dioxide 21 mmol/L (22.0-30.0); Creatinine Clearance Estimated 72 mL/min (50-200); Estimated Glomerular Filt Rate 75 ml/min (>60); GFR (African American) 91 ML/MIN (>60); Globulin 3.2 g/dL (1.3-3.2); Total Protein,Serum 7.6 g/dl (6.3-8.2)
[2020-08-26 08:41] LABS: Calcium 9.4 mg/dl (8.4-10.2); Glucose 111 mg/dl (74-100)
[2020-08-26 08:49] LABS: Basophils # 0.1 K/mm3 (0-0.2); Basophils % 0.6 % (0.1-2.0); Eosinophils # 0.2 K/mm3 (0.0-0.4); Hematocrit 43.1 % (42.0-52.0); Hemoglobin 14.5 g/dL (14.1-18.0); Lymphocytes # 2.8 K/mm3 (0.7-4.5); Lymphocytes % 25.2 % (10-50); Mean Corpuscular HGB Conc 33.6 g/dL (31.8-35.4); Mean Corpuscular Hemoglobin 30.6 pg (27.0-31.2); Mean Corpuscular Volume 91.2 fl (80-94); Mean Platelet Volume 6.7 fl (7.4-10.4); Monocytes # 0.8 K/mm3 (0.1-1.0); Monocytes % 6.8 % (1.7-9.3); Neutrophils # 7.3 K/mm3 (1.8-7.8); Neutrophils % 65.3 % (37.0-80.0); Platelet Count 272 K/mm3 (142-424); Red Blood Count 4.73 M/mm3 (4.60-6.20); Red Cell Distribution Width 13.7 % (11.5-17.5); White Blood Count 11.2 K/mm3 (4.8-10.8)
[2020-08-26 14:35] LABS: CATHL Activated Clotting Time 350 SEC (74-125)
--- NOTE | 2020-08-26 16:39 | HMH.ANESCL ---
[facility] Anesthesia Checklist - Structural Data Admitted From: Inpatient Planned Operative Procedure/s: i/d l foot Consent for Planned Operative Procedure(s) Verified: Yes - Airway Assessment C-Spine Mobility Assessed: Yes TMJ Mobility Assessed: Yes Dentition: Poor Dentition - Neurological Assessment Level of Consciousness: Awake, Alert, Appropriate - Anesthesia Plan Anesthesia Risk discussed: Yes Anesthesia Plan: Verified ASA Class: III Anesthesia Type: General [facility] History I have reviewed the patient's past medical history: Yes Medical History: Reports:: Peripheral Artery Disease *Have you ever received a pneumonia vaccine?: No *Have you received a flu vaccine this season?: No Anesthesia experience/problems:: none Laterality Cases: Right: Arthroscopy Knee Amputation: No Fractures: Yes (Left 5th metatarsal) - *Social History Smoking Status: Current every day smoker Tobacco Type: cigarettes # Packs/Day (cigarettes): 1 Alcohol Intake: never Alcohol Intake Frequency:: 0-2 drinks per day Substance Use Type: denies use *Occupational Status:: retired Housing: house Household Members: none *Travel in the last 8 weeks: None Family Hx:: No significant family history
--- NOTE | 2020-08-26 16:41 | XR_ITS ---
PROCEDURE: XR ANKLE LT MIN 3V CLINICAL INDICATION: Post op wound COMPARISON: No exams were available for comparison FINDINGS: No acute fractures or dislocations. Bone density is normal. The ankle mortise is congruent. Bandaging material is noted adjacent to the lateral malleolus. Presence of drain is noted at the soft tissues of the heel. IMPRESSION: Postsurgical changes. Dictated by: Lida Viera 08/28/2020 10:27 Lida Viera in OV 08/28/2020 10:27
--- NOTE | 2020-08-26 16:41 | P.PN_ITS ---
[facility] Anesthesia Record Part I Intake, IV Amount: 1,200 Estimated blood loss (mL): 0 Urine output (mL): 0 Blood Pressure: 131/79 SaO2: 98 Pulse Rate: 77 Respiratory Rate: 12 Temperature: 97.8 F Patient is:: Awake, Stable Stable to PACU at:: 16:35
--- NOTE | 2020-08-26 16:47 | HMH.OPNOTE ---
Date of procedure: 08/26/20 Pre-op Diagnosis:: 1. Left heel gangrene, ulcer 2. Left ankle/fibula abscess 3. 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 Left leg cellulitis 5. PAD s/p run-off today 08/26/20 Post-op Diagnosis:: Same Procedure performed:: 1. Left lateral foot ulcer debridement 2. Left ankle incision and drainage 3. Left heel deep wound debridement 4. Left calcaneus, fibula bone biopsies 5. Left foot application of wound vac Surgeon:: Lilian Crenshaw DPM [place] ATTENDANT:: Vaughn Augustine Anesthesia: GETA Estimated blood loss (mL): 20 Clinical Note:: Patient is a 65-year-old male who was admitted 08/25/2020 for left lower extremity cellulitis with heel gangrene and a critical abnormal ZACH. He had a run off with Dr. Beckford today for left lower extremity PAD. We discussed surgical intervention for left heel wound debridement, incision and drainage and possible wound VAC application. Patient understands that there is a chance that the he could have wound healing complications including delayed healing and infection. We discussed that if the wound does not heal, it is possible that they may need a more proximal amputation and could result in further loss of digits, loss of partial foot or loss of leg. We discussed the risks and benefits in great detail. Other surgical risks include: prolonged pain and swelling, further infection requiring oral or IV antibiotics, delay in healing of soft tissue or bone, nerve or blood vessel damage, CRPS/RSD, DVT, anesthesia complications, and even . All questions answered. Patient verbalized understanding. Consent obtained. Operative findings:: The left lower extremity had cellulitis noted. There was an ulcer noted to the left lateral foot over the calcaneus which measured 2.5x2x0.1cm. Unstageable left heel pressure ulcer, 5x5cm. The inferior calcaneus heel ulcer has gangrene noted with heather wound erythema and edema. Under the ulcer there was necrotic malodorous tissue. The achilles inferior attachment on the calcaneus was necrotics. There was tunneling along the plantar fascia, 7cm. Post debridement sharply excisionally with a 15 blade and forcep, the ulcer did have a healthy bleeding and was 100% granular and there was exposed calcaneus and Achilles attachment. The wound measured 6.1 x 5.2 x 7 cm. Cellulitis extends to the ankle. There is pain and fluctuance to the left heel and left lateral ankle. Fair to poor prognosis depending on results of the bone culture and biopsies. If patient does have osteomyelitis there is a high likelihood he will need further debridement versus amputation. Operative note:: On this date and time the patient was deemed an appropriate surgical candidate. With informed consent time patient was transferred from the preoperative holding area to the operating theater placed on table in a normal supine position. Left lower extremities prepped and draped in normal sterile fashion. No tourniquet utilized. IV Zosyn given at the time of surgery, IV vancomycin previously given today. Left lateral foot ulcer debridement: Attention was directed to the lateral heel where a superficial ulceration was noted. 15 blade and forceps used to sharply excisionally debride the wound. Wound did not extend through the subcutaneous tissue layer. Post debridement the wound was 100% granular and measured 2.5x2x0.1cm. Left ankle incision and drainage, fibula bone biopsy: Attention was directed to the left lateral ankle fibula where edema and erythema was noted. Fluctuance around the distal fibula. Utilizing a 15 blade, a linear incision was made over the fluctuant site. There was some serosanguineous drainage noted. Opxh-[id number]-[id number] pressure was applied to the incision and immediately 3 more cc of serosanguineous drainage was expressed. Wound culture left fibula taken. Next hemostat used to explore the area. There was no deep tunneling noted. The fibula was visible in the wound bed. A rongeur was used to remove the pie
--- NOTE | 2020-08-26 17:08 | PC.NURSE ---
Pt arrived back to the floor from surgery.
--- NOTE | 2020-08-26 17:30 | SUR.PHASEI ---
1635-pt to pacu via bed. Pt is restless but awake. LMA in place. Wound vac in place to left heel @ 120. vss. 1650-xray @ bs. pt more awake but still restless. 1705-detailed report called to timmy mccurdy. Pt transported via bed to 2nd floor per Shane MCCURDY & Leonel MCCURDY. Pt stable.
--- NOTE | 2020-08-26 17:33 | SUR.OPER ---
Pathology Specimens 1.Left Heel 2.Calcaneous Bone 3.Culture (Specimen Cup) 4.Calcaneous Bone 5.Fibula Bone Swabs 6.Left ankle anaerobic/aerobic 7.Left Heel anaerobic/aerobic
--- NOTE | 2020-08-26 17:55 | SUR.OPER ---
[facility] to put in orders for left heel wound culture anaerobic/aerobic.unable to place order myself.
[2020-08-26 18:09] LABS: Vancomycin,Trough 8.8 ug/mL (5.0-10.0)
--- NOTE | 2020-08-26 18:10 | PC.NURSE ---
Per Alda Ayala it is okay to given dose of vanco.
--- NOTE | 2020-08-26 18:46 | PC.NURSE ---
Pt back to floor from surgery @ 1700, has done well. Lungs CTA. Abdomen soft, non-tender w/ active BS. No BM this shift. Has voided per urinal since returning to floor. Left foot is wrapped in samara wrap, cap refill <3 sec. Wound vac to suction, 120 mmhg, minimal amount of serosang drainage noted in tubing. Pt has been medicated per MAR, w/ relief verbalized. R Fem dressing C/D/I, no s/s of bleeding or hematoma. Pt currently sitting up in bed. No needs @ this time. Call jordan w/in reach.
[2020-08-27 03:38] VITALS: BP 103/63; PULSE 82; RESP 16; TEMP 37.1; O2SAT 98
--- NOTE | 2020-08-27 03:41 | PC.NURSE ---
No acute changes overnight. Pt c/o extreme burning and shooting pain in his left foot, pain meds were given per mar with no relief. MD environmental services associate gave order for Dilaudid q4h which relieved pain considerably. Pt was able to rest on and off through the night. Drsg on LLE is CDI. Wound vac in place to 120 of suction. pt able to void independently in urinal. Pt has been non weight bearing on left foot. Lungs CTA, on room air through the night. Bowel sounds x4, abd soft and nontender. VSS, call light in reach, no concerns at this time.
[2020-08-27 04:49] VITALS: BMI 19.7
[2020-08-27 07:25] VITALS: BP 109/60; PULSE 91; RESP 18; TEMP 37.3; O2SAT 97
[2020-08-27 07:49] LABS: Basophils # 0.1 K/mm3 (0-0.2); Basophils % 0.5 % (0.1-2.0); Eosinophils # 0.2 K/mm3 (0.0-0.4); Eosinophils % 1.4 % (0.1-12.0); Hematocrit 37.8 % (42.0-52.0); Lymphocytes # 3.8 K/mm3 (0.7-4.5); Mean Corpuscular HGB Conc 33.8 g/dL (31.8-35.4); Mean Corpuscular Hemoglobin 30.8 pg (27.0-31.2); Mean Corpuscular Volume 91.3 fl (80-94); Mean Platelet Volume 6.7 fl (7.4-10.4); Monocytes # 1.1 K/mm3 (0.1-1.0); Monocytes % 6.4 % (1.7-9.3); Neutrophils # 11.3 K/mm3 (1.8-7.8); Neutrophils % 68.8 % (37.0-80.0); Platelet Count 249 K/mm3 (142-424); Red Blood Count 4.14 M/mm3 (4.60-6.20); Red Cell Distribution Width 13.9 % (11.5-17.5); White Blood Count 16.5 K/mm3 (4.8-10.8)
--- NOTE | 2020-08-27 07:50 | PC.NURSE ---
Incentive Spirometer given to patient and instructed on use, he verbalized understanding.Proper return demonstration given.
[2020-08-27 07:52] LABS: Hemoglobin 12.8 g/dL (14.1-18.0); MANUAL DIFFERENTIAL MANUAL DIFFERENTIAL (MANUAL DIFF)
[2020-08-27 07:55] LABS: Alanine Aminotransferase 29 U/L (12-78); Albumin/Globulin Ratio 1.3 (1.1-1.8); Alkaline Phosphatase 83 U/L (38-126); Anion Gap 13.2 mEq/L (5-15); Aspartate Amino Transferase 78 U/L (17-59); Bilirubin,Total 0.9 mg/dl (0.2-1.3); Blood Urea Nitrogen 12 mg/dl (9-20); Carbon Dioxide 21 mmol/L (22.0-30.0); Chloride 104 mmol/L (98-107); Creatinine Clearance Estimated 66 mL/min (50-200); Estimated Glomerular Filt Rate 68 ml/min (>60); GFR (African American) 82 ML/MIN (>60); Glucose 94 mg/dl (74-100); Potassium 4.2 mmoL/L (3.5-5.1); Sodium 134 mmol/L (136-145)
--- NOTE | 2020-08-27 08:29 | XR_ITS ---
PROCEDURE: XR CHEST PORTABLE PICC PLAC CLINICAL HISTORY: Confirm PICC line placement COMPARISON: No exams were available for comparison FINDINGS: Left subclavian PICC line with its tip overlying the SVC noted. The cardiomediastinal silhouette and pulmonary vascularity are within normal limits. The lungs are clear without infiltrates, suspicious nodules, or pleural effusions. No acute bony abnormalities. IMPRESSION: No acute findings. Dictated by: Lida Viera 08/27/2020 13:52 Lida Viera in OV 08/27/2020 13:52
--- NOTE | 2020-08-27 08:30 | HMH.ACPN2 ---
Internal Medicine - PN: Subj *Date: 08/27/20 *Time: 08:30 Interval history: Patient did well with surgical procedure. Cultures pending. Discussed case personally with podiatry who have recommended IV antibiotics for long-term as well as wound VAC because of probable osteomyelitis in his calcaneus. Overall patient feels well, has been been able to tolerate no smoking. Exam Vital signs and Labs for Last 24 Hours: Temp Pulse Resp BP Pulse Ox 99.1 F 91 H 18 109/60 L 97 08/27/20 07:25 08/27/20 07:25 08/27/20 07:25 08/27/20 07:25 08/27/20 07:25 Laboratory Results - last 24 hr 08/26/20 08:25: WBC 11.2 H, RBC 4.73, Hgb 14.5, Hct 43.1, MCV 91.2, MCH 30.6, MCHC 33.6, RDW 13.7, Plt Count 272, MPV 6.7 L, Neut % (Auto) 65.3, Lymph % (Auto) 25.2, [place] % (Auto) 6.8, Eos % (Auto) 2.0, Baso % (Auto) 0.6, Neut # (Auto) 7.3, Lymph # (Auto) 2.8, [place] # (Auto) 0.8, Eos # (Auto) 0.2, Baso # (Auto) 0.1 08/26/20 08:25: Sodium 133 L, Potassium 4.2, Chloride 104, Carbon Dioxide 21 L, Anion Gap 12.2, BUN 10, Creatinine 1.00, Estimated Creat Clear 72, Estimated GFR 75, Est GFR ( Amer) 91, Glucose 111 H, Calcium 9.4, Total Bilirubin 0.7, AST 37 D, ALT 20, Alkaline Phosphatase 99, Total Protein 7.6, Albumin 4.4, Globulin 3.2, Albumin/Globulin Ratio 1.4 08/26/20 11:48: Activated Clotting Time 350 H* 08/26/20 17:25: Vancomycin Trough 8.8 08/27/20 07:25: WBC 16.5 H D, RBC 4.14 L, Hgb 12.8 L D, Hct 37.8 L, MCV 91.3, MCH 30.8, MCHC 33.8, RDW 13.9, Plt Count 249, MPV 6.7 L, Neut % (Auto) 68.8, Lymph % (Auto) 23.0, [place] % (Auto) 6.4, Eos % (Auto) 1.4, Baso % (Auto) 0.5, Neut # (Auto) 11.3 H, Lymph # (Auto) 3.8, [place] # (Auto) 1.1 H, Eos # (Auto) 0.2, Baso # (Auto) 0.1 08/27/20 07:25: Sodium 134 L, Potassium 4.2, Chloride 104, Carbon Dioxide 21 L, Anion Gap 13.2, BUN 12, Creatinine 1.10, Estimated Creat Clear 66, Estimated GFR 68, Est GFR ( Amer) 82, Glucose 94, Calcium 9.0, Total Bilirubin 0.9, AST 78 H D, ALT 29 D, Alkaline Phosphatase 83, Total Protein 7.0, Albumin 4.0, Globulin 3.0, Albumin/Globulin Ratio 1.3 I & O for Last 24 hours: Intake & Output 08/24/20 08/25/20 08/26/20 08/27/20 11:59 11:59 11:59 11:59 Intake Total 240 / 240 1979 / 1979 Output Total 1275 / 1275 Balance 240 / 240 705 / 705 Weight 149 lb 149 lb Microbiology Reports for the Last 24 Hours: Microbiology 08/26/20 15:30 Leg,Left Gram Stain - Final 08/26/20 15:30 Ankle,Left Gram Stain - Final 08/26/20 15:30 Foot,Left - Final Not Reportable 08/26/20 15:30 Foot,Left - Final Not Reportable 08/26/20 15:30 Foot,Left - Final Not Reportable 08/26/20 15:30 Foot,Left Gram Stain Comment - Final Not Reportable Narrative: Patient is pleasant, talkative, alert, oriented x3. Cardiopulmonary exam is unchanged. Abdomen soft. Neurologically intact. Left heel wrapped and bandaged with wound VAC. Podiatry notes reviewed Assessment and Plan (1) Left leg cellulitis Status: Acute Category: Medical Code(s): L03.116 - Cellulitis of left lower limb (2) Peripheral arterial disease Status: Acute Category: Medical Code(s): I73.9 - Peripheral vascular disease, unspecified (3) Cellulitis of left foot Status: Acute Category: Medical Code(s): L03.116 - Cellulitis of left lower limb (4) Ulcer of left heel Status: Acute Qualifiers: Non-pressure ulcer stage: unspecified non-pressure ulcer stage Qualified Code(s): L97.429 - Non-pressure chronic ulcer of left heel and midfoot with unspecified severity Category: Medical Code(s): L97.429 - Non-pressure chronic ulcer of left heel and midfoot with unspecified severity (5) Gangrene of left foot Status: Acute Category: Medical Code(s): I96 - Gangrene, not elsewhere classified (6) Abnormal ankle brachial index (ZACH) Status: Acute Catego
--- NOTE | 2020-08-27 08:31 | HMH.PNCARD ---
Subjective Date: 08/27/20 Time: 08:00 Principal diagnosis: Left PAD, heel ulcer, gangrene Interval history: 65-year-old male admitted to [facility] with nonhealing wound/ulcer. Patient did undergo bilateral lower extremity runoff intervention yesterday. Left popliteal artery was noted occluded. Patient did require stenting to the area. Palpable pulse of the left popliteal. Patient does have nonhealing wound of the left foot and ankle which is currently being treated by Dr. Crenshaw. Wound care is being provided by Dr. Crenshaw. Patient was currently started on Plavix and aspirin then would recommend Xarelto 2.5 twice daily with aspirin in 30 days. Patient denies chest pain, tightness or pressure. Patient denies shortness of breath. Patient is resting quietly. Patient does complain of left lower extremity pain especially where the non-healing ulcer is noted. Will defer pain management to PCP and Dr. Crenshaw. Echocardiogram was performed yesterday. Echo revealed EF 55% with no regional wall abnormality and grade 1 diastolic dysfunction. Echo:Conclusion 1. Mildly enlarged left atrium, normal left ventricular size, visually estimated ejection fraction 55% with no regional wall motion abnormality, grade 1 diastolic dysfunction seen without tissue Doppler evidence of raise left atrial pressure. 2. Trace mitral and tricuspid regurgitation. 3. No significant pericardial effusion noted. Bilateral Lower Extremity Runoff:ANGIOGRAPHIC RESULTS The left popliteal artery is bluntly occluded At the end of the procedure the left popliteal artery PT trunk anterior tibialis artery peroneal artery and posterior tibialis artery were widely patent with inline flow into the left foot IMPRESSION Peripheral artery disease as described above successful revascularization PLAN 1. Plavix and aspirin for the next 30 days followed by Xarelto 2.5 twice daily plus aspirin 81 mg daily 2. LDL less than 55 3. Immediate cessation of tobacco products 4. Physical therapy 5. Wound care per Dr. Crenshaw's discretion 6. Avoid tourniquets perioperatively 7. Over the next 30 days it would be ideal if patient's leg could remain straight with minimal bending of the knee while the stent is epithelializing. Thank you for allowing cardiology to participate in the care of this patient. Exam Vital signs and Labs for Last 24 Hours: Temp Pulse Resp BP Pulse Ox 99.1 F 91 H 18 109/60 L 97 08/27/20 07:25 08/27/20 07:25 08/27/20 07:25 08/27/20 07:25 08/27/20 07:25 Laboratory Results - last 24 hr 08/26/20 08:25: WBC 11.2 H, RBC 4.73, Hgb 14.5, Hct 43.1, MCV 91.2, MCH 30.6, MCHC 33.6, RDW 13.7, Plt Count 272, MPV 6.7 L, Neut % (Auto) 65.3, Lymph % (Auto) 25.2, [place] % (Auto) 6.8, Eos % (Auto) 2.0, Baso % (Auto) 0.6, Neut # (Auto) 7.3, Lymph # (Auto) 2.8, [place] # (Auto) 0.8, Eos # (Auto) 0.2, Baso # (Auto) 0.1 08/26/20 08:25: Sodium 133 L, Potassium 4.2, Chloride 104, Carbon Dioxide 21 L, Anion Gap 12.2, BUN 10, Creatinine 1.00, Estimated Creat Clear 72, Estimated GFR 75, Est GFR ( Amer) 91, Glucose 111 H, Calcium 9.4, Total Bilirubin 0.7, AST 37 D, ALT 20, Alkaline Phosphatase 99, Total Protein 7.6, Albumin 4.4, Globulin 3.2, Albumin/Globulin Ratio 1.4 08/26/20 11:48: Activated Clotting Time 350 H* 08/26/20 17:25: Vancomycin Trough 8.8 08/27/20 07:25: WBC 16.5 H D, RBC 4.14 L, Hgb 12.8 L D, Hct 37.8 L, MCV 91.3, MCH 30.8, MCHC 33.8, RDW 13.9, Plt Count 249, MPV 6.7 L, Neut % (Auto) 68.8, Lymph % (Auto) 23.0, [place] % (Auto) 6.4, Eos % (Auto) 1.4, Baso % (Auto) 0.5, Neut # (Auto) 11.3 H, Lymph # (Auto) 3.8, [place] # (Auto) 1.1 H, Eos # (Auto) 0.2, Baso # (Auto) 0.1 08/27/20 07:25: Sodium 134 L, Potassium 4.2, Chloride 104, Carbon Dioxide 21 L, Anion Gap 13.2, BUN 12, Creatinine 1.10, Estimated Creat Clear 66, Estimated GFR 68, Est GFR ( Amer) 82, Glucose 94, Calcium 9.0, Total Bilirubin 0.9, AST 78 H D, ALT 29 D, Alkaline Phosphatase 83, Total P
[2020-08-27 08:35] LABS: Lymphocytes % 26 % (10-50); Monocytes % 9 % (2-9); Neutrophils % 65 % (42-76); Platelet Estimate Normal; RBC Morphology Normal; Total Cells Counted 100
--- NOTE | 2020-08-27 09:20 | P.CONPHA_ITS ---
- Pharmacy Consult Date: 08/27/20 Time: 09:20 Referring provider: DR. GRIMM Reason for Consult:: VANCOMYCIN TROUGH LEVEL Allergies and ADEs:: Allergies Allergy/AdvReac Type Severity Reaction Status Date / Time No Known Allergies Allergy Verified 08/25/20 09:17 Home Medications:: Home Medications Medication Instructions Recorded Confirmed Type Sulfamethoxazole/Trimethoprim 1 tab PO BID 08/25/20 08/25/20 History [Bactrim 400-80 mg (SS) Tablet] cephALEXin [cephALEXin 500mg 500 mg PO QID 08/25/20 08/25/20 History capsule*] Height: 1.85 m Weight: 67.585 kg Laboratory Results:: Laboratory Results - last 24 hr 08/26/20 11:48: Activated Clotting Time 350 H* 08/26/20 17:25: Vancomycin Trough 8.8 08/27/20 07:25: WBC 16.5 H D, RBC 4.14 L, Hgb 12.8 L D, Hct 37.8 L, MCV 91.3, MCH 30.8, MCHC 33.8, RDW 13.9, Plt Count 249, MPV 6.7 L, Neut % (Auto) 68.8, Lymph % (Auto) 23.0, [place] % (Auto) 6.4, Eos % (Auto) 1.4, Baso % (Auto) 0.5, Neut # (Auto) 11.3 H, Lymph # (Auto) 3.8, [place] # (Auto) 1.1 H, Eos # (Auto) 0.2, Baso # (Auto) 0.1, Total Counted 100, Neutrophils % (Manual) 65, Lymphocytes % (Manual) 26, Monocytes % (Manual) 9, Platelet Estimate Normal, RBC Morphology Normal 08/27/20 07:25: Sodium 134 L, Potassium 4.2, Chloride 104, Carbon Dioxide 21 L, Anion Gap 13.2, BUN 12, Creatinine 1.10, Estimated Creat Clear 66, Estimated GFR 68, Est GFR ( Amer) 82, Glucose 94, Calcium 9.0, Total Bilirubin 0.9, AST 78 H D, ALT 29 D, Alkaline Phosphatase 83, Total Protein 7.0, Albumin 4.0, Globulin 3.0, Albumin/Globulin Ratio 1.3 Medical History: Reports:: Peripheral Artery Disease Assessment and Plan (1) Left leg cellulitis Status: Acute Category: Medical Code(s): L03.116 - Cellulitis of left lower limb (2) Peripheral arterial disease Status: Acute Category: Medical Code(s): I73.9 - Peripheral vascular disease, unspecified (3) Cellulitis of left foot Status: Acute Category: Medical Code(s): L03.116 - Cellulitis of left lower limb (4) Ulcer of left heel Status: Acute Qualifiers: Non-pressure ulcer stage: unspecified non-pressure ulcer stage Qualified Code(s): L97.429 - Non-pressure chronic ulcer of left heel and midfoot with unspecified severity Category: Medical Code(s): L97.429 - Non-pressure chronic ulcer of left heel and midfoot with unspecified severity (5) Gangrene of left foot Status: Acute Category: Medical Code(s): I96 - Gangrene, not elsewhere classified (6) Abnormal ankle brachial index (ZACH) Status: Acute Category: Medical Code(s): R68.89 - Other general symptoms and signs (7) Tobacco use Status: Acute Category: Social Hx Code(s): Z72.0 - Tobacco use - Assessment and plan all Dx Assessment and Plan for all problems:: BASED ON PATIENT FACTORS AND VANCOMYCIN TROUGH LEVEL OF 8.8 AFTER 2 DOSES, RECOMMEND CONTINUING CURRENT DOSE OF VANCOMYCIN AT 1,250MG EVERY 12 HOURS. PHARMACY WILL CONTINUE TO MONITOR AND ADJUST DOSE APPROPRIATE. -MARIAH WIN, TOMD
--- NOTE | 2020-08-27 10:33 | HMH.PTEV ---
Physical Therapy Evaluation Rehab PT IP Evaluation Start: 08/26/20 16:38 Freq: ONCE Status: Active Protocol: Document 08/27/20 10:00 PHORNE (Rec: 08/27/20 10:33 PHORNE [id number]) Subjective/History History History 65 yowm adm to [facility] with L heel wound now S/P surgical debridement with VAC dressing placement. He reports he lives alone with 1 step to enter the home and was independent with all mobility prior to admit. Subjective Subjective Pt reports some c/o pain in the L foot this am. Rehab PT IP Eval Objective Appearance Patient Behavior Appropriate Patient Orientation Person,Place,Time Difficulty following instructions none Speech Pattern Clear Ambulation Patient Able to Ambulate Yes Ambulation Observation IP General Gait Pattern Observation Decrease Weight Bear (L) Ambulation Distance (feet) 20 Ambulation Assistive Device Rolling Walker Ambulation Ability Contact Guard/Hand Hold Balance Ability to Arise Able, uses arms to help Sitting Balance Steady, safe Standing Balance Steady, wide stance Dynamic Sitting Balance Ability Good Dynamic Standing Balance Ability Good Transfers Bed Transfer Ability Supervision/Stand by Chair Transfer Ability Supervision/Stand by Sit to Stand Bed Transfer Ability Supervision/Stand by Sit to Stand Chair Transfer Ability Supervision/Stand by ROM All Extremities PT ROM Status WFL Abnormal ROM Comment except L foot NT MMT All Extremities PT MMT WFL Abnormal MMT Grade except L foot NT Rehab PT IP prob,goals,plan Problems Date of Evaluation: 08/27/20 PT IP Problems Bed Mobility,Transfers,Gait, Self care Rehab Potential Rehab Potential Good Equipment Needs Assistive Devices Rolling / Wheeled Walker Plan PT Intervention Plan Bed Mobility,Transfers,Gait, Self care,Therapeutic Exercise PT Plan Frequency BID Duration LOS Discharge Goals Bed Transfer Ability Independent Sit to Stand Chair Transfer Ability Independent Ambulation Assistive Device Rolling Walker Ambulation Distance (feet) 50 Discharge Plan PT Discharge Plan Pt is appropriate to return home once medically stable. Recommend Home Health or
--- NOTE | 2020-08-27 11:01 | HMH.ORTHPN ---
Subjective Date: 08/27/20 Time: 08:10 Principal diagnosis: Left PAD, heel ulcer, gangrene Interval history: Patient doing very well this morning sitting up in the chair when entering the room. Patient denies any N/V/D and is afebrile. Dr. Bain in the care management team is also at the bedside speaking with the patient. Patient states he has a new insurance starting tomorrow Valerie Lester from care management is going to be checking on the benefits of his new plan to see if he will be covered using the wound VAC he has in place. The patient will have benefits for him to do outpatient wound care and dressing changes so he will need to come to the hospital podiatry department and possibly wound care as well to accommodate his dressing changes. I will check the patient's dressing this morning I will not be taking the dressing completely down, only just verifying that the dressing is still intact and not to saturated and to make sure the wound VAC's suction is appropriate. The patient will more than likely be staying another night and we will follow up with the patient again tomorrow for another site evaluation and possible dressing change at that time. PN: Obj Ex Vital signs: Temp Pulse Resp BP Pulse Ox 99.1 F 91 H 18 109/60 L 97 08/27/20 07:25 08/27/20 07:25 08/27/20 07:25 08/27/20 07:25 08/27/20 07:25 - Constitutional no acute distress - Routine HEENT Exam Head: Present: normocephalic Eye: Present: PERRL ENT: Present: mucous membranes moist - Routine Neck Exam Present: full ROM, trachea midline - Routine Respiratory Exam Absent: accessory muscle use, respiratory distress - Routine Cardiovascular Exam Present: RRR - Routine Abdominal Exam Present: soft - Detailed Lower Extremity Exam Top foot image: 1 - S/P 08/26/20 Left ankle incision and drainage, fibula bone biopsy,erythema has improved alot since yesterday. Bone culture from fibula is pending. Bottom foot image: 1 - S/P 08/26/20 Left calcaneus heel wound/ulcer Stage 4-debridement: Post op measurements 6.1 x 5.2 x 7 cm. Calc bone biopsy pending- done to evaluate for osteomyelitis. Wound Vac in place. Dressings intact. - Routine Back/Spine/Pelvis Exam Back/Spine: Present: full ROM - Routine Skin Exam Present: erythema, wounds (Lef tfoot wound vac in place. ) - Routine Neurological Exam Present: oriented X3, vision grossly intact, hearing grossly intact, normal speech - Routine Psychiatric Exam Present: normal affect, cooperative Progress Note: A&P (1) Left leg cellulitis Status: Acute (2) Peripheral arterial disease Status: Acute (3) Cellulitis of left foot Status: Acute (4) Ulcer of left heel Status: Acute (5) Gangrene of left foot Status: Acute (6) Abnormal ankle brachial index (ZACH) Status: Acute (7) Tobacco use Status: Acute Assessment and Plan for All Diagnoses:: Patient will be staying another day. Patient will have new insurance starting tomorrow call care source, care management is looking into the benefits of his new plan to see if they will cover for him to have the wound VAC. Patient currently has left calcaneus heel wound that is stage IV with the calcaneus exposed Due to the depth of the ulcer it was felt appropriate to take a bone biopsy to evaluate for osteomyelitis. Left foot application of wound vac: A wound vac remians in place to the heel wound. The seal was check and vac set to 120mmHg continuous medium. Betadine soaked gauze applied over fibula. A dry sterile dressing was then applied over the vac to reenforce the area. Dressing was then applied over the left foot and ankle. Plan: Maintain dressing clean dry and intact to left foot, reinforce as necessary. NWB in postop shoe, walker. IV antibiotics: Vancomycin, Zosyn. Awaiting wound and
--- NOTE | 2020-08-27 11:11 | SW/DCPLANNER ---
SPOKE WITH PATIENT THIS MORNING ABOUT DISCHARGE PLANNING... PATIENT STATED HE WAS SET UP WITH [facility] ON THE EXCHANGE, HE STATED THE FINANCIAL COUNSELOR CAME UP AND SPOKE WITH HIM AND HE SAID IT IS GOING TO COSTS HIM $66 PER MONTH... HE IS COMING BACK TO THE HOSPITAL FOR IV ANTIBIOTICS AND WOUND VAC WILL BE THROUGH [facility]... HE STATED HE HAS TRANSPORTATION TO COME BACK AND FORTH AND THERAPY STATED HE DOES WELL AND CAN RETURN HOME... DISCHARGE IS FOR THE AM PENDING NO SETBACKS...
[2020-08-27 11:22] VITALS: BP 143/80; PULSE 80; TEMP 36.6
--- NOTE | 2020-08-27 11:22 | HMH.ANESII ---
[facility] Anesthesia Record Part II Discharge Time: 17:05 Destination: floor PACU nurse assessment reviewed?: Yes Patient Condition:: Good Anesthesia Complications:: None Swallowing reflex intact?: Yes Cyanosis?: No Blood Pressure: 143/80 Pulse Rate: 80 Temperature: 98 F Mental Status: Alert & Oriented Pain level:: 10 Nausea and/or vomitting:: None Intake, IV Amount: 900
[2020-08-27 11:58] VITALS: BP 124/58; PULSE 87; RESP 16; TEMP 37; O2SAT 99
[2020-08-27 15:57] VITALS: BP 116/79; PULSE 94; RESP 16; TEMP 37; O2SAT 99
--- NOTE | 2020-08-27 17:40 | PC.NURSE ---
Pt is alert and oriented x4. He has been up to the chair the majority of the shift and tolerated well. Wound vac to left foot is still to 120 of suction with small amount of sanguineous drainage noted. Dressing is clean, dry and intact. He ambulated with a walker and standby assist with PT. He has been treated with pain meds x3 this shift for pain in his left foot, he reported satisfactory relief on reassessment. He is currently in his on his phone at this time. Will continue to monitor.
[2020-08-27 20:00] VITALS: BP 172/82; PULSE 60; PULSE 94; RESP 17; RESP 18; TEMP 36.6; O2SAT 97
[2020-08-28 04:00] VITALS: BP 113/66; PULSE 80; RESP 17; TEMP 36.7; O2SAT 98
[2020-08-28 05:00] VITALS: BMI 19.7
[2020-08-28 05:35] LABS: Basophils # 0.1 K/mm3 (0-0.2); Basophils % 0.5 % (0.1-2.0); Eosinophils # 0.3 K/mm3 (0.0-0.4); Eosinophils % 2.1 % (0.1-12.0); Hematocrit 34.9 % (42.0-52.0); Hemoglobin 11.8 g/dL (14.1-18.0); Lymphocytes # 3.4 K/mm3 (0.7-4.5); Lymphocytes % 26.4 % (10-50); Mean Corpuscular HGB Conc 33.7 g/dL (31.8-35.4); Mean Corpuscular Hemoglobin 30.9 pg (27.0-31.2); Mean Corpuscular Volume 91.7 fl (80-94); Mean Platelet Volume 7.2 fl (7.4-10.4); Monocytes # 0.8 K/mm3 (0.1-1.0); Monocytes % 6.4 % (1.7-9.3); Neutrophils # 8.3 K/mm3 (1.8-7.8); Neutrophils % 64.6 % (37.0-80.0); Platelet Count 211 K/mm3 (142-424); Red Blood Count 3.81 M/mm3 (4.60-6.20); Red Cell Distribution Width 13.7 % (11.5-17.5); White Blood Count 12.8 K/mm3 (4.8-10.8)
--- NOTE | 2020-08-28 05:35 | PC.NURSE ---
patient resting in chair with foot elevated; Dressing c/d/i. Call light within reach; walker within reach to ambulate without putting weight on left foot. Pain has been controlled with medication throughout shift.
[2020-08-28 05:43] LABS: Chloride 102 mmol/L (98-107); Potassium 3.9 mmoL/L (3.5-5.1); Sodium 132 mmol/L (136-145)
[2020-08-28 05:46] LABS: Anion Gap 9.9 mEq/L (5-15); Blood Urea Nitrogen 10 mg/dl (9-20); Calcium 8.6 mg/dl (8.4-10.2); Carbon Dioxide 24 mmol/L (22.0-30.0); Creatinine Clearance Estimated 72 mL/min (50-200); Estimated Glomerular Filt Rate 85 ml/min (>60); GFR (African American) 103 ML/MIN (>60); Glucose 105 mg/dl (74-100)
--- NOTE | 2020-08-28 07:17 | PC.NURSE ---
PT IS NON-WEIGHT BEARING TO AFFECTED LOWER EXTREMITY AND WOULD BENEFIT FROM HAVING A ROLLING WALKER ON DISCHARGE DUE TO GAIT AND MOBILITY ISSUES.
[2020-08-28 07:33] VITALS: BP 125/87; PULSE 80; RESP 17; TEMP 36.7; O2SAT 96
--- NOTE | 2020-08-28 08:11 | HMH.ORTHPN ---
Subjective Date: 08/28/20 <Oliva Zapata - 08/28/20 08:27> Time: 08:11 <Oliva Zapata - 08/28/20 08:27> Principal diagnosis: Left PAD, heel ulcer, gangrene <Oliva Zapata 08/28/20 08:27> Interval history: Patient resting in chair upon entering the room this morning. States pain has been very tolerable throughout the night no problems or complaints with the wound VAC. Dressing remains clean dry and intact. Discussed with patient that we are going to be changing the wound VAC taking it off placing Betadine dressings to the heel and ankle this morning. We also was discussing arrangements for him getting back to the hospital after discharge for IV antibiotics and dressing changes. Patient states he does have a car and has a way and transportation is not a problem for him getting back to the hospital for his IV infusion and dressing changes. Patient was premedicated prior to dressing changes this morning. <Oliva Zapata 08/28/20 08:27> PN: Obj Ex Vital signs: Temp Pulse Resp BP Pulse Ox 98.1 F 80 17 125/87 96 08/28/20 07:33 08/28/20 07:33 08/28/20 07:33 08/28/20 07:33 08/28/20 07:33 <Lilian Crenshaw - 08/28/20 09:52> Temp Pulse Resp BP Pulse Ox 98.1 F 80 17 125/87 96 08/28/20 07:33 08/28/20 07:33 08/28/20 07:33 08/28/20 07:33 08/28/20 07:33 <Oliva Zapata - 08/28/20 08:27> - Constitutional no acute distress <Oliva Zapata - 08/28/20 08:27> - Routine HEENT Exam Head: Present: normocephalic <Oliva Zapata 08/28/20 08:27> Eye: Present: PERRL <Oliva Zapata 08/28/20 08:27> ENT: Present: mucous membranes moist <Oliva Zapata 08/28/20 08:27> - Routine Neck Exam Present: full ROM, trachea midline <Oliva Zapata 08/28/20 08:27> - Routine Respiratory Exam Absent: accessory muscle use, respiratory distress <Oliva Zapata 08/28/20 08:27> - Routine Cardiovascular Exam Present: RRR <Oliva Zapata 08/28/20 08:27> - Routine Abdominal Exam Present: soft <Oliva Zapata 08/28/20 08:27> - Routine Extremities Exam Present: edema, pulses intact, normal capillary refill. Absent: calf tenderness <Oliva Zapata 08/28/20 08:27> - Detailed Lower Extremity Exam Top foot image: 1 - S/P 08/26/20 Left ankle incision and drainage, fibula bone biopsy,erythema has improved alot since yesterday. Bone culture from fibula is pending. Sutures intact. Dressing was change at the same time as the nito dressing. <Oliva Zapata 08/28/20 08:27> Bottom foot image: 1 - S/P 08/26/20 Left calcaneus heel wound/ulcer Stage 4-no debridement done this am: Post op measurements 6.1 x 5.2 x 7 cm. Calc bone biopsy pending- done to evaluate for osteomyelitis. Wound vac removed, area was then wiped clean with Betadine soaked 4 x 4, Vaseline gauze was placed over the heel extending up to the ankle to avoid dressings from sticking to the Calc. Betadine soaked 4 x 4's then dry 4 x 4 Curlex and an ABD and Newton wrap was then placed to the Calc site. No drainage noted to the Calc site no malodor noted. <Oliva Zapata 08/28/20 08:27> - Routine Back/Spine/Pelvis Exam Back/Spine: Present: full ROM <Oliva Zapata 08/28/20 08:27> - Routine Skin Exam Present: erythema, dry, warm (Left leg and foot erythema and edema, improving. ) <Oliva Zapata 08/28/20 08:27> - Routine Neurological Exam Present: oriented X3, normal reflexes, moving all extremities, vision grossly intact, hearing grossly intact, normal speech <Oliva Zapata 08/28/20 08:27> - Routine Psychiatric Exam Present: normal affect, cooperative <Oliva Zapata 08/28/20 08:27> Progress Note: A&P (1) Left leg cellulitis Status: Acute (2) Peripheral arterial disease Status: Acute (3) Cellulitis of left foot Status:
--- NOTE | 2020-08-28 08:35 | HMH.DCSUM ---
General - General Admission date:: 08/25/20 Discharge date: 08/28/20 HPI HPI: 65-year-old male presenting with left heel ulceration. Concern due to nonhealing ulceration with findings consistent with peripheral artery disease so patient redirected to the ER. He has been on Bactrim and Keflex for the past several days without improvement. The cellulitis is spreading up his left lower extremity. He does have dopplerable pulses DP and PT in the left and has no motor/sensory deficits. At this time, differential diagnosis does include arterial ulcer vs. cellulitis vs osteomyelitis vs. myositis. No signs of necrotizing fasciitis on exam. Lab work initiated with ESR/CRP. X-rays will be obtained to ensure no findings consistent with ulceration. 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 Antibiotics ordered. No signs of sepsis on initial exam. Vancomycin and Zosyn will be given after blood cultures obtained. Lactic acid also ordered with reflex pending if elevated. At this time, lab work relatively reassuring and x-ray demonstrates no deeper space infection. Patient still has been given IV antibiotics due to his failure of p.o. antibiotics. I did discuss this with on-call podiatry. Recommendations for PAD be worked up and possibly intervened upon to aid in healing of nonhealing left heel ulcer. CT angiography with runoff pending. Discussed this with admitting hospitalist who is agreed to admit this patient. Patient verbalized understanding agrees. Agree with the ED note as above. Patient was seen in the office and in the ER by myself. Plan for admission per Dr. Padilla/Dr. Cunha. Patient will need left ankle/foot CT to evaluate for left heel osteomyelitis and ankle abscess. Plan to hold on surgical intervention until cardio sees the patient. Above note per emergency department and podiatry. Patient is without medical care over the past decades. Has been a heavy smoker but takes no medications, has not been hospitalized in the past years. 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 Noticed the heel ulcer several days ago. Hospital Course Hospital Course: Patient was admitted, podiatry was consulted-input appreciated. Recommended evaluation by cardiology service for evaluation of popliteal atherosclerotic disease. This was done and stent was placed in this artery on the left side with excellent results. Patient had good flow down to the extremity. Taken to the OR where debridement of the calcaneus and the wound was done, evidence of osteomyelitis was noted. Patient did well with the procedure. And was placed on intravenous antibiotics. Cultures from the bone have been negative, but given evidence of a osteomyelitis we have decided to place patient on IV antibiotics for 4 weeks. Patient will be sent home today and we have elected to do an outpatient regimen of daptomycin and ceftriaxone daily at our infusion department, first dose today and then continuing for 4 weeks. He will also be sent home with dual antiplatelet therapy and hydrocodone given his recent bone debridement and ongoing pain from his leg. He will also be placed on a nicotine patch and we have emphasized to him the importance of nicotine cessation. Physical therapy is recommended a knee scooter, and I believe this is medically necessary for him to be able to be mobile in the house as well as to keep pressure off of the heel. I will follow him up in my office in 1 week, cardiology will see him next week and podiatry/wound care will see him tomorrow when he comes in for his antibiotics. Objective Vital signs: Temp Pulse Resp BP Pulse Ox 98.1 F 80 17 125/87 96 08/28/20 07:33 08/28/20 07:33 08/28/20 07:33 08/28
--- NOTE | 2020-08-28 09:29 | SW/DCPLANNER ---
Addendum entered by Marisel Banks 08/28/20 11:16: Catalina with [employer] stated that a dump truck driver is on its way with a rolling walker for this patient. Addendum entered by Marisel Banks 08/28/20 10:52: Isabella with [facility] has called and stated they are not in network with patients insurance. Isabella did state that private pay rate for a standard walker is $45 and rolling walker is $65. I have called and spoke with [employer] and they are in network with patients insurance. Patient and information for a rolling walker has been faxed to [employer]. I will follow up with [employer] once patient information/order is reviewed. [employer] phone: [phone] fax:[phone] Original Note: SET UP ROLLING WALKER FOR THIS PATIENT WHO IS DISCHARGING HOME TODAY...PATIENT CHOSE [facility] HAS HIS PROVIDER. THIS WILL BE DELIVERED BEFORE PATIENT DISCHARGES HOME TODAY....
--- NOTE | 2020-08-28 09:42 | HMH.PHAINT ---
NEW MEDICATIONS: LIPITOR, PLAVIX, ASPIRIN PERIPHERAL STENT, SIMRAN/ARB AND BB NOT INDICATED
== END 2020-08-28 12:12 | disposition home or self-care (01) | DRG 253 ==
LOC: ER 16:00 → 2ND 08-26 05:54
PROVIDERS: Internal Medicine; Internal Medicine Adolescent Medicine; Podiatrist; Admitting Provider Internal Medicine Adolescent Medicine; Emergency Provider Emergency Medicine; Visit Provider Internal Medicine Adolescent Medicine
PROC: 047N3DZ Dilation of Left Popliteal Artery with Intraluminal Device, Percutaneous Approach (ICD-10-PCS; principal; 2020-08-26 13:30)
PROC: 0QBM0ZX Excision of Left Tarsal, Open Approach, Diagnostic (ICD-10-PCS; principal; 2020-08-26 15:00)
DX: I70.262 Atherosclerosis of native arteries of extremities with gangrene, left leg (principal); M86.172 Other acute osteomyelitis, left ankle and foot; L03.116 Cellulitis of left lower limb; L03.115 Cellulitis of right lower limb; L89.620 Pressure ulcer of left heel, unstageable; F17.210 Nicotine dependence, cigarettes, uncomplicated; Z66 Do not resuscitate; Z79.82 Long term (current) use of aspirin; L97.521 Non-pressure chronic ulcer of other part of left foot limited to breakdown of skin
CPT/HCPCS: 37226; 37230; 37234; 97597; 20245 ×2; 27603; 36415; 36569; 71045; 73610; 75635; 80048; 80053; 80202; 83605; 84145; 85007; 85025; 85347; 85651; 86140; 87040; 87070; 87075; 87077; 87186; 87205; 87581; 87633; 87798; 93306; 96365; 96367; 97162; 99152; 99153; 99284; C1725; C1751; C1760; C1766; C1769; C1876; C1894; J0878; J1644; J2405; J2543; J3370; Q9966; Q9967

== ENCOUNTER → 2020-08-29 10:20 | Outpatient (CLI) | payer OTHER, SELFPAY ==
[2020-08-29 10:40] VITALS: BP 121/70; PULSE 77; RESP 20; TEMP 36.6; O2SAT 100
[2020-08-29 12:15] VITALS: BP 140/83; PULSE 94; RESP 18
== END ==
PROVIDERS: Visit Provider Internal Medicine Adolescent Medicine
DX: M86.172 Other acute osteomyelitis, left ankle and foot (principal)
CPT/HCPCS: 96365; 96367; J0878

== ENCOUNTER → 2020-08-30 10:12 | Outpatient (CLI) | payer OTHER, SELFPAY ==
[2020-08-30 10:23] VITALS: BP 134/64; PULSE 84; RESP 15; TEMP 36.8; O2SAT 95
--- NOTE | 2020-08-30 10:33 | PC.NURSE ---
PER THUY IN PHARMACY, BOTH ABX CAN BE RAN TOGETHER.
== END ==
PROVIDERS: Visit Provider Internal Medicine Adolescent Medicine
DX: M86.172 Other acute osteomyelitis, left ankle and foot (principal)
CPT/HCPCS: 96365; 96367; J0878

== ENCOUNTER 2020-08-31 10:15 | Outpatient (CLI) | payer OTHER, SELFPAY ==
[2020-08-31 10:40] VITALS: BP 138/78; PULSE 72; RESP 18; TEMP 36.7; O2SAT 97
== END 2020-08-31 11:20 | disposition home or self-care (01) ==
LOC: INF 10:16
PROVIDERS: Visit Provider Internal Medicine Adolescent Medicine
DX: M86.172 Other acute osteomyelitis, left ankle and foot (principal)
CPT/HCPCS: 96365; 96367; J0878

== ENCOUNTER 2020-09-01 08:57 | Outpatient (CLI) | payer OTHER, SELFPAY ==
[2020-09-01 08:59] VITALS: BMI 20.4
[2020-09-01 09:14] LABS: Basophils # 0.1 K/mm3 (0-0.2); Basophils % 0.9 % (0.1-2.0); Eosinophils # 0.4 K/mm3 (0.0-0.4); Eosinophils % 3.8 % (0.1-12.0); Hematocrit 37.3 % (42.0-52.0); Hemoglobin 11.7 g/dL (14.1-18.0); Lymphocytes # 2.9 K/mm3 (0.7-4.5); Lymphocytes % 25.7 % (10-50); Mean Corpuscular HGB Conc 31.5 g/dL (31.8-35.4); Mean Corpuscular Hemoglobin 29.5 pg (27.0-31.2); Mean Corpuscular Volume 93.8 fl (80-94); Mean Platelet Volume 6.8 fl (7.4-10.4); Monocytes # 0.4 K/mm3 (0.1-1.0); Monocytes % 3.8 % (1.7-9.3); Neutrophils # 7.4 K/mm3 (1.8-7.8); Platelet Count 327 K/mm3 (142-424); Red Blood Count 3.97 M/mm3 (4.60-6.20); Red Cell Distribution Width 13.6 % (11.5-17.5); White Blood Count 11.3 K/mm3 (4.8-10.8)
[2020-09-01 09:22] VITALS: BP 134/77; PULSE 84; RESP 20; TEMP 36.8; O2SAT 97
[2020-09-01 09:25] LABS: Chloride 107 mmol/L (98-107); Potassium 4.2 mmoL/L (3.5-5.1); Sodium 139 mmol/L (136-145)
[2020-09-01 09:27] LABS: Blood Urea Nitrogen 11 mg/dl (9-20)
[2020-09-01 09:28] LABS: Anion Gap 12.2 mEq/L (5-15); Calcium 9.4 mg/dl (8.4-10.2); Carbon Dioxide 24 mmol/L (22.0-30.0); Creatine Kinase 360 U/L (55-170); Creatinine Clearance Estimated 75 mL/min (50-200); Estimated Glomerular Filt Rate 98 ml/min (>60); GFR (African American) 118 ML/MIN (>60); Glucose 114 mg/dl (74-100)
[2020-09-01 09:52] VITALS: BP 131/72; PULSE 88; RESP 20; O2SAT 98
[2020-09-01 10:15] VITALS: BP 130/78; PULSE 81; RESP 20; O2SAT 97
== END 2020-09-01 10:15 | disposition home or self-care (01) ==
LOC: INF 08:57
PROVIDERS: PCP Internal Medicine Adolescent Medicine; Visit Provider Internal Medicine Adolescent Medicine
DX: M86.172 Other acute osteomyelitis, left ankle and foot (principal)
CPT/HCPCS: 80048; 82550; 85025; 96365; 96367; J0878

== ENCOUNTER 2020-09-02 10:15 | Outpatient (CLI) | payer OTHER, SELFPAY ==
[2020-09-02 10:47] VITALS: BP 131/64; PULSE 71; RESP 18; TEMP 36.4; O2SAT 99
[2020-09-02 11:36] VITALS: BP 132/70; PULSE 75; RESP 18
== END 2020-09-02 11:36 | disposition home or self-care (01) ==
LOC: INF 10:15
PROVIDERS: Visit Provider Internal Medicine Adolescent Medicine
DX: M86.172 Other acute osteomyelitis, left ankle and foot (principal)
CPT/HCPCS: 96365; 96367; J0878

== ENCOUNTER 2020-09-03 10:15 | Outpatient (CLI) | payer OTHER, SELFPAY ==
[2020-09-03 10:30] VITALS: BP 156/89; PULSE 86; RESP 18; O2SAT 99
[2020-09-03 11:22] VITALS: BP 144/79; PULSE 75; RESP 18
== END 2020-09-03 11:22 | disposition home or self-care (01) ==
LOC: INF 10:17
PROVIDERS: Visit Provider Internal Medicine Adolescent Medicine
DX: M86.172 Other acute osteomyelitis, left ankle and foot (principal)
CPT/HCPCS: 96365; 96367; J0878

== ENCOUNTER 2020-09-04 10:21 | Outpatient (CLI) | payer OTHER, SELFPAY ==
[2020-09-04 10:35] VITALS: BP 141/78; PULSE 77; RESP 18; TEMP 36.4; O2SAT 99
[2020-09-04 11:05] VITALS: BP 150/77; PULSE 79; RESP 18; O2SAT 98
[2020-09-04 11:20] VITALS: BP 161/65; PULSE 78; RESP 18; O2SAT 99
== END 2020-09-04 11:20 | disposition home or self-care (01) ==
LOC: INF 10:21
PROVIDERS: Visit Provider Internal Medicine Adolescent Medicine
DX: M86.172 Other acute osteomyelitis, left ankle and foot (principal)
CPT/HCPCS: 96365; 96367; J0878

== ENCOUNTER 2020-09-05 10:17 | Outpatient (CLI) | payer OTHER, SELFPAY ==
[2020-09-05 10:49] VITALS: BP 152/81; PULSE 82; RESP 18; TEMP 36.6; O2SAT 97
[2020-09-05 11:30] VITALS: BP 139/74; PULSE 80; RESP 16; TEMP 36.6; O2SAT 98
== END 2020-09-05 11:40 | disposition home or self-care (01) ==
LOC: INF 10:17
PROVIDERS: Visit Provider Internal Medicine Adolescent Medicine
DX: M86.172 Other acute osteomyelitis, left ankle and foot (principal)
CPT/HCPCS: 96365; 96367; J0878

== ENCOUNTER → 2020-09-06 10:18 | Outpatient (CLI) | payer OTHER, SELFPAY | PROVIDERS: PCP Internal Medicine Adolescent Medicine; Visit Provider Internal Medicine Adolescent Medicine | DX: M86.172 Other acute osteomyelitis, left ankle and foot (principal) | CPT/HCPCS: 96365; 96367; J0878 ==

== ENCOUNTER → 2020-09-07 10:10 | Outpatient (CLI) | payer OTHER, SELFPAY ==
[2020-09-07 10:10] VITALS: BP 154/81; PULSE 75; RESP 18; TEMP 36.6; O2SAT 98
[2020-09-07 10:44] VITALS: BP 148/79; PULSE 74; RESP 20; TEMP 36.7; O2SAT 100
== END ==
PROVIDERS: PCP Internal Medicine Adolescent Medicine; Visit Provider Internal Medicine Adolescent Medicine
DX: M86.172 Other acute osteomyelitis, left ankle and foot (principal)
CPT/HCPCS: 96365; 96367; J0878

== ENCOUNTER 2020-09-08 10:20 | Outpatient (CLI) | payer OTHER, SELFPAY ==
[2020-09-08 10:23] VITALS: BMI 20.2
[2020-09-08 10:41] LABS: Basophils # 0.1 K/mm3 (0-0.2); Basophils % 0.6 % (0.1-2.0); Eosinophils # 0.4 K/mm3 (0.0-0.4); Eosinophils % 2.7 % (0.1-12.0); Hematocrit 40.5 % (42.0-52.0); Hemoglobin 13.1 g/dL (14.1-18.0); Lymphocytes # 3.5 K/mm3 (0.7-4.5); Mean Corpuscular HGB Conc 32.3 g/dL (31.8-35.4); Mean Corpuscular Hemoglobin 30.3 pg (27.0-31.2); Mean Corpuscular Volume 93.8 fl (80-94); Mean Platelet Volume 6.9 fl (7.4-10.4); Monocytes # 0.5 K/mm3 (0.1-1.0); Monocytes % 3.4 % (1.7-9.3); Neutrophils # 10.1 K/mm3 (1.8-7.8); Neutrophils % 69.2 % (37.0-80.0); Platelet Count 433 K/mm3 (142-424); Red Blood Count 4.32 M/mm3 (4.60-6.20); Red Cell Distribution Width 14.3 % (11.5-17.5); White Blood Count 14.5 K/mm3 (4.8-10.8)
[2020-09-08 10:46] LABS: Chloride 109 mmol/L (98-107); Potassium 4.1 mmoL/L (3.5-5.1); Sodium 140 mmol/L (136-145)
[2020-09-08 10:49] LABS: Blood Urea Nitrogen 16 mg/dl (9-20); Creatinine Clearance Estimated 75 mL/min (50-200); Estimated Glomerular Filt Rate 85 ml/min (>60); GFR (African American) 103 ML/MIN (>60)
[2020-09-08 10:50] LABS: Anion Gap 10.1 mEq/L (5-15); Calcium 9.3 mg/dl (8.4-10.2); Carbon Dioxide 25 mmol/L (22.0-30.0); Glucose 105 mg/dl (74-100)
[2020-09-08 11:00] VITALS: BP 126/69; PULSE 76; RESP 18; TEMP 36.4; O2SAT 97
[2020-09-08 11:01] LABS: Creatine Kinase 146 U/L (55-170)
[2020-09-08 11:45] VITALS: BP 129/72; PULSE 72; RESP 16; TEMP 36.4; O2SAT 98
== END 2020-09-08 11:45 | disposition home or self-care (01) ==
LOC: INF 10:20
PROVIDERS: Visit Provider Internal Medicine Adolescent Medicine
DX: M86.172 Other acute osteomyelitis, left ankle and foot (principal)
CPT/HCPCS: 80048; 82550; 85025; 96365; 96366; 96367; J0878

== ENCOUNTER 2020-09-09 10:13 | Outpatient (CLI) | payer OTHER, SELFPAY ==
[2020-09-09 10:24] VITALS: BP 142/68; PULSE 74; RESP 18; TEMP 36.4; O2SAT 100
[2020-09-09 10:54] VITALS: BP 139/67; PULSE 78; RESP 18; O2SAT 99
[2020-09-09 11:15] VITALS: BP 136/71; PULSE 76; RESP 18; O2SAT 99
== END 2020-09-09 11:15 | disposition home or self-care (01) ==
LOC: INF 10:14
PROVIDERS: Visit Provider Internal Medicine Adolescent Medicine
DX: M86.172 Other acute osteomyelitis, left ankle and foot (principal)
CPT/HCPCS: 96365; 96367; J0878

== ENCOUNTER 2020-09-10 10:00 | Outpatient (CLI) | payer OTHER, SELFPAY ==
[2020-09-10 10:35] VITALS: BP 119/71; PULSE 67; RESP 18; TEMP 36.7; O2SAT 99
[2020-09-10 11:05] VITALS: BP 137/85; PULSE 69; RESP 18; O2SAT 99
== END 2020-09-10 11:20 | disposition home or self-care (01) ==
LOC: INF 10:14
PROVIDERS: Visit Provider Internal Medicine Adolescent Medicine
DX: M86.172 Other acute osteomyelitis, left ankle and foot (principal)
CPT/HCPCS: 96365; 96367; J0878

== ENCOUNTER 2020-09-11 09:37 | Outpatient (CLI) | payer OTHER, SELFPAY ==
[2020-09-11 10:08] VITALS: BP 131/69; PULSE 80; RESP 18; TEMP 36.7; O2SAT 100
[2020-09-11 10:55] VITALS: BP 122/74; PULSE 76; RESP 16; TEMP 36.7; O2SAT 98
== END 2020-09-11 11:00 | disposition home or self-care (01) ==
LOC: INF 09:44
PROVIDERS: Visit Provider Internal Medicine Adolescent Medicine
DX: M86.172 Other acute osteomyelitis, left ankle and foot (principal)
CPT/HCPCS: 96365; 96367; J0878

== ENCOUNTER → 2020-09-12 10:15 | Outpatient (CLI) | payer OTHER, SELFPAY ==
[2020-09-12 10:15] VITALS: BP 128/74; PULSE 78; RESP 20; TEMP 36.8; O2SAT 95
[2020-09-12 11:25] VITALS: BP 128/74; PULSE 74; RESP 20; TEMP 36.4; O2SAT 95
== END ==
PROVIDERS: Visit Provider Internal Medicine Adolescent Medicine
DX: M86.172 Other acute osteomyelitis, left ankle and foot (principal)
CPT/HCPCS: 96365; 96367; J0878

== ENCOUNTER → 2020-09-13 08:58 | Outpatient (CLI) | payer OTHER, SELFPAY ==
--- NOTE | 2020-09-13 09:12 | XR_ITS ---
PROCEDURE: XR ORBIT BILATERAL MIN 4V CLINICAL INDICATION: RULE OUT METAL ARTIFACT FOR MRI COMPARISON: No exams were available for comparison TECHNIQUE: AP views are obtained of the orbits with the patient looking up and down. FINDINGS: No metallic foreign bodies evident.. There is an area thin calcification along the supraorbital area the left possibly due to summation density from overlying calvarium IMPRESSION: No radio opaque orbital foreign body identified. Dictated by: Syed Ford MD 09/13/2020 09:30 Syed Ford MD in [place] 09/13/2020 09:30
== END ==
PROVIDERS: Visit Provider Podiatrist
DX: H05.53 Retained (old) foreign body following penetrating wound of bilateral orbits (principal)
CPT/HCPCS: 70200

== ENCOUNTER 2020-09-13 10:28 | Outpatient (CLI) | payer OTHER, SELFPAY ==
[2020-09-13 11:01] VITALS: BP 121/71; PULSE 75; RESP 16; O2SAT 98
== END 2020-09-13 12:05 | disposition home or self-care (01) ==
PROVIDERS: PCP Internal Medicine Adolescent Medicine; Visit Provider Internal Medicine Adolescent Medicine
DX: M86.172 Other acute osteomyelitis, left ankle and foot (principal)
CPT/HCPCS: 96365; 96367; J0878

== ENCOUNTER → 2020-09-14 10:18 | Outpatient (CLI) | payer OTHER, SELFPAY ==
[2020-09-14 10:52] VITALS: BP 116/70; PULSE 86; RESP 19; O2SAT 97
== END ==
PROVIDERS: PCP Internal Medicine Adolescent Medicine; Visit Provider Internal Medicine Adolescent Medicine
DX: M86.172 Other acute osteomyelitis, left ankle and foot (principal)
CPT/HCPCS: 96365; 96367; J0878

== ENCOUNTER 2020-09-15 09:57 | Outpatient (CLI) | payer OTHER, SELFPAY ==
[2020-09-15 10:00] VITALS: BMI 20.4
[2020-09-15 10:13] LABS: Basophils # 0.1 K/mm3 (0-0.2); Basophils % 0.5 % (0.1-2.0); Eosinophils # 2.1 K/mm3 (0.0-0.4); Eosinophils % 10.2 % (0.1-12.0); Hematocrit 40.9 % (42.0-52.0); Hemoglobin 13.7 g/dL (14.1-18.0); Lymphocytes # 3.7 K/mm3 (0.7-4.5); Lymphocytes % 18.6 % (10-50); Mean Corpuscular HGB Conc 33.3 g/dL (31.8-35.4); Mean Corpuscular Hemoglobin 30.5 pg (27.0-31.2); Mean Corpuscular Volume 91.4 fl (80-94); Mean Platelet Volume 6.9 fl (7.4-10.4); Monocytes % 4.9 % (1.7-9.3); Neutrophils # 13.2 K/mm3 (1.8-7.8); Neutrophils % 65.8 % (37.0-80.0); Platelet Count 378 K/mm3 (142-424); Red Blood Count 4.48 M/mm3 (4.60-6.20); White Blood Count 20.1 K/mm3 (4.8-10.8)
[2020-09-15 10:15] LABS: MANUAL DIFFERENTIAL MANUAL DIFFERENTIAL (MANUAL DIFF)
[2020-09-15 10:27] VITALS: BP 113/82; PULSE 101; RESP 18; TEMP 36.4; O2SAT 97
[2020-09-15 10:34] LABS: Blood Urea Nitrogen 15 mg/dl (9-20); Calcium 9.7 mg/dl (8.4-10.2); Carbon Dioxide 22 mmol/L (22.0-30.0); Chloride 104 mmol/L (98-107); Creatine Kinase 122 U/L (55-170); Creatinine Clearance Estimated 68 mL/min (50-200); Estimated Glomerular Filt Rate 68 ml/min (>60); GFR (African American) 82 ML/MIN (>60); Glucose 104 mg/dl (74-100); Sodium 136 mmol/L (136-145)
[2020-09-15 10:57] VITALS: BP 118/79; PULSE 99; RESP 18; O2SAT 97
[2020-09-15 11:07] VITALS: BP 120/79; PULSE 89; RESP 18; O2SAT 98
[2020-09-15 11:12] LABS: Eosinophils % 4 % (0-3); Lymphocytes % 12 % (10-50); Monocytes % 2 % (2-9); Neutrophils % 82 % (42-76); Platelet Estimate Normal; RBC Morphology Normal; Total Cells Counted 100
== END 2020-09-15 11:07 | disposition home or self-care (01) ==
LOC: INF 09:57
PROVIDERS: Visit Provider Internal Medicine Adolescent Medicine
DX: M86.172 Other acute osteomyelitis, left ankle and foot (principal)
CPT/HCPCS: 80048; 82550; 85007; 85025; 96365; 96367; J0878

== ENCOUNTER 2020-09-16 10:17 | Outpatient (CLI) | payer OTHER, SELFPAY ==
[2020-09-16 10:32] VITALS: BP 119/68; PULSE 81; RESP 20; TEMP 36.7; O2SAT 98
[2020-09-16 11:13] VITALS: BP 139/77; PULSE 78; RESP 20; O2SAT 97
== END 2020-09-16 11:13 | disposition home or self-care (01) ==
LOC: INF 10:17
PROVIDERS: Visit Provider Internal Medicine Adolescent Medicine
DX: M86.172 Other acute osteomyelitis, left ankle and foot (principal)
CPT/HCPCS: 96365; 96367; J0878

== ENCOUNTER 2020-09-17 10:12 | Outpatient (CLI) | payer OTHER, SELFPAY ==
[2020-09-17 10:43] VITALS: BP 147/75; PULSE 78; RESP 18; TEMP 36.2; O2SAT 98
[2020-09-17 11:13] VITALS: BP 129/81; PULSE 77; RESP 18; O2SAT 98
[2020-09-17 11:35] VITALS: BP 126/78; PULSE 74; RESP 18; O2SAT 98
== END 2020-09-17 11:35 | disposition home or self-care (01) ==
LOC: INF 10:12
PROVIDERS: Visit Provider Internal Medicine Adolescent Medicine
DX: M86.172 Other acute osteomyelitis, left ankle and foot (principal)
CPT/HCPCS: 96365; 96367; J0878

== ENCOUNTER 2020-09-18 09:22 | Outpatient (CLI) | payer OTHER, SELFPAY ==
[2020-09-18 09:42] VITALS: BP 111/80; PULSE 102; RESP 18; TEMP 36.5; O2SAT 97
[2020-09-18 10:12] VITALS: BP 104/79; PULSE 99; RESP 18; O2SAT 98
[2020-09-18 10:35] VITALS: BP 108/71; PULSE 78; RESP 18; O2SAT 98
--- NOTE | 2020-09-18 13:26 | MR_ITS ---
PROCEDURE: MR ANKLE LT WO CON CLINICAL INDICATION: osteomyelitis skin ulcer with necrotic, cellulitis Prior hx ankle surgery x3wks ago for infection. Open wound in heel. Second attempt at MRI- COMPARISON: CR XR ANKLE LT MIN 3V from 08/26/2020 TECHNIQUE: Routine multiplanar multi echo sequences are performed without gadolinium enhancement. Second attempt at MRI- Pt was in pain and could not complete exam after being medicated. Pt was positioned in three different ways to try to relieve pain, but still could not complete full exam. Spoke with Dr. Crenshaw's office and they said it was fine to send sequences over. Exam was meant to be done with contrast, but was not due to patient's pain and could not complete exam. FINDINGS: Limited images are submitted as described in the technique part of the exam. Slight increased T2 signal is present within the talar dome subchondral surface medially nonspecific. AC skin defect is present along the posterior and medial aspect of the calcaneus. There is somewhat heterogeneous increased T2 signal along the posterior aspect of the calcaneus extending from the region of the Achilles insertion to the plantar fascia insertion. This area measures approximately 15 mm AP, 29 mm cephalad caudad, and 18 mm transverse. No obvious abscess. No obvious fracture. The tendons and ligaments are grossly intact. Small amount of fluid is present along the anterior lateral aspect of the talocalcaneal junction and in the sinus tarsi. Edema is present within the heel pad. IMPRESSION: Heterogeneous increased T2 signal within the calcaneus posteriorly as described above at the region the skin ulceration suggesting osteomyelitis of the calcaneus. Dictated by: Syed Ford MD 09/20/2020 09:53 Syed Ford MD in [place] 09/20/2020 09:53
== END 2020-09-18 10:35 | disposition home or self-care (01) ==
LOC: RAD 09:22
PROVIDERS: PCP Internal Medicine Adolescent Medicine; Visit Provider Nurse Practitioner
DX: M86.172 Other acute osteomyelitis, left ankle and foot (principal)
CPT/HCPCS: 73721; 96365; 96367; J0878

== ENCOUNTER 2020-09-19 10:20 | Outpatient (CLI) | payer OTHER, SELFPAY ==
[2020-09-19 10:37] VITALS: BP 140/55; PULSE 67; RESP 17; O2SAT 99
[2020-09-19 11:43] VITALS: BP 131/71; PULSE 71; RESP 18; O2SAT 98
== END 2020-09-19 11:45 | disposition home or self-care (01) ==
LOC: INF 10:20
PROVIDERS: Visit Provider Internal Medicine Adolescent Medicine
DX: M86.172 Other acute osteomyelitis, left ankle and foot (principal)
CPT/HCPCS: 96365; 96367; J0878

== ENCOUNTER 2020-09-20 10:14 | Outpatient (CLI) | payer OTHER, SELFPAY ==
[2020-09-20 10:14] VITALS: BP 127/65; PULSE 79; RESP 14; TEMP 36.6; O2SAT 99
== END 2020-09-20 12:10 | disposition home or self-care (01) ==
LOC: INF 10:14
PROVIDERS: PCP Internal Medicine Adolescent Medicine; Visit Provider Internal Medicine Adolescent Medicine
DX: M86.172 Other acute osteomyelitis, left ankle and foot (principal)
CPT/HCPCS: 96365; 96367; J0878

== ENCOUNTER 2020-09-21 10:15 | Outpatient (CLI) | payer OTHER, SELFPAY ==
[2020-09-21 10:30] VITALS: BP 110/69; PULSE 89; RESP 18; TEMP 36.7; O2SAT 95
== END 2020-09-21 11:15 | disposition home or self-care (01) ==
LOC: INF 10:16
PROVIDERS: PCP Internal Medicine Adolescent Medicine; Visit Provider Internal Medicine Adolescent Medicine
DX: M86.172 Other acute osteomyelitis, left ankle and foot (principal)
CPT/HCPCS: 96365; 96367; J0878

== ENCOUNTER 2020-09-22 10:31 | Outpatient (CLI) | payer OTHER, SELFPAY ==
[2020-09-22 10:34] VITALS: BMI 20.4
[2020-09-22 10:44] VITALS: BP 101/65; PULSE 78; RESP 18; TEMP 36.6; O2SAT 97
[2020-09-22 11:51] VITALS: BP 128/68; PULSE 64; RESP 18; O2SAT 94
[2020-09-22 12:13] LABS: Basophils # 0.1 K/mm3 (0-0.2); Basophils % 0.8 % (0.1-2.0); Eosinophils # 3.5 K/mm3 (0.0-0.4); Hematocrit 37.3 % (42.0-52.0); Hemoglobin 12.3 g/dL (14.1-18.0); Lymphocytes # 3.3 K/mm3 (0.7-4.5); Lymphocytes % 22.6 % (10-50); Mean Corpuscular Hemoglobin 30.6 pg (27.0-31.2); Mean Corpuscular Volume 92.7 fl (80-94); Mean Platelet Volume 7.2 fl (7.4-10.4); Monocytes # 0.7 K/mm3 (0.1-1.0); Monocytes % 4.7 % (1.7-9.3); Neutrophils % 47.9 % (37.0-80.0); Platelet Count 286 K/mm3 (142-424); Red Blood Count 4.02 M/mm3 (4.60-6.20); Red Cell Distribution Width 13.6 % (11.5-17.5); White Blood Count 14.7 K/mm3 (4.8-10.8)
[2020-09-22 12:23] LABS: Chloride 104 mmol/L (98-107); Sodium 137 mmol/L (136-145)
[2020-09-22 12:26] LABS: Anion Gap 13.1 mEq/L (5-15); Blood Urea Nitrogen 15 mg/dl (9-20); Calcium 8.9 mg/dl (8.4-10.2); Carbon Dioxide 24 mmol/L (22.0-30.0); Creatine Kinase 76 U/L (55-170); Creatinine Clearance Estimated 75 mL/min (50-200); Estimated Glomerular Filt Rate 98 ml/min (>60); GFR (African American) 118 ML/MIN (>60); Glucose 109 mg/dl (74-100); Potassium 4.1 mmoL/L (3.5-5.1)
== END 2020-09-22 11:57 | disposition home or self-care (01) ==
LOC: INF 10:31
PROVIDERS: Podiatrist; Visit Provider Internal Medicine Adolescent Medicine
DX: M86.172 Other acute osteomyelitis, left ankle and foot (principal)
CPT/HCPCS: 80048; 82550; 85025; 96365; 96367; J0878

== ENCOUNTER 2020-09-23 10:20 | Outpatient (CLI) | payer OTHER, SELFPAY ==
[2020-09-23 10:40] VITALS: BP 161/72; PULSE 80; RESP 18; TEMP 36.6; O2SAT 100
[2020-09-23 11:25] VITALS: BP 147/73; PULSE 79; RESP 18
== END 2020-09-23 11:25 | disposition home or self-care (01) ==
LOC: INF 10:45
PROVIDERS: Visit Provider Internal Medicine Adolescent Medicine
DX: M86.172 Other acute osteomyelitis, left ankle and foot (principal)
CPT/HCPCS: 96365; 96367; J0878

== ENCOUNTER 2020-09-24 10:10 | Outpatient (CLI) | payer OTHER, SELFPAY ==
[2020-09-24 10:30] VITALS: BP 125/71; PULSE 70; RESP 20; TEMP 36.7; O2SAT 97
[2020-09-24 11:20] VITALS: BP 134/78; PULSE 82; RESP 20; O2SAT 96
== END 2020-09-24 11:35 | disposition home or self-care (01) ==
LOC: INF 10:22
PROVIDERS: Visit Provider Internal Medicine Adolescent Medicine
DX: M86.172 Other acute osteomyelitis, left ankle and foot (principal)
CPT/HCPCS: 96365; 96367; J0878

== ENCOUNTER 2020-09-25 10:15 | Outpatient (CLI) | payer OTHER, SELFPAY ==
[2020-09-25 10:25] VITALS: BP 127/61; PULSE 74; RESP 17; TEMP 36.6; O2SAT 96
[2020-09-25 11:32] VITALS: BP 139/84; PULSE 76; RESP 17; O2SAT 97
== END 2020-09-25 11:35 | disposition home or self-care (01) ==
LOC: INF 10:15
PROVIDERS: Visit Provider Internal Medicine Adolescent Medicine
DX: M86.172 Other acute osteomyelitis, left ankle and foot (principal)
CPT/HCPCS: 96365; 96367; J0878

== ENCOUNTER 2020-09-25 13:00 | Outpatient (RCR) | payer OTHER, SELFPAY ==
--- NOTE | 2020-09-01 09:48 | HMH.PTOPWND ---
Rehab Outpt Wound Evaluation Rehab OP Wound Evaluation Start: 09/01/20 09:42 Freq: Status: Active Protocol: Document 09/01/20 09:42 PWBOO (Rec: 09/01/20 09:48 [id number]) Electronically Signed By Jose Lazcano, PT 09/01/20 09:42 Subjective/History History History his is the initial OP wound clinic evaluation for Wade Chavez. Pt is a 65 y/o male referred to PT wound clinic s/p L ankle surgical calcaneal wound debridement. Pt reports wound began as a blister and got worse to the point of requiring hospitalization and surgical intervention. Subjective Subjective Pt c/o severe TTP in wound and heather-wound area Wound Eval Wound Left Heel Wound Type surgical debridement Is This a Chronic Wound Yes Wound Length (cm) 5.0 Wound Width (cm) 5.0 Wound Bed Appearance Beefy Red,Yellow,Slough,Eschar Percentage Granulated (%) 50 Percentage of Slough (%) 50 Percentage of Eschar (Black) (%) 10 Percentage of Eschar (Yellow) (%) 40 Wound Margins Description Well Defined Surrounding Tissue Appearance [place],Macerated Drainage Description Serosanguineous Drainage Amount Small Drainage Odor No Odor Dressing Status Soiled Wound Topical Solution/Irrigant Antibiotic Irrigant Packing Type Woundvac Sponge Primary Dressing Film Dressing Wound Debridement Amount of Tissue None Removed Dressing Change Date 09/01/20 Dressing Change Patient Tolerance Tolerated Poorly Wound Problems/Impairments Impairments Problems/Impairmments Palpation Tenderness,Impaired Walking,Impaired Standing, Impaired Lifting,Impaired Shower/Bathing,Impaired Household Care,Impaired Stair Climbing,Impaired Recreational Activities,Impaired Work Activities,Wound Care Needs, Subjective C/O Pain,Impaired Self Care/Self Management Prognosis Rehab Potential Fair Clinical Impression Consistent with Diagnosis Yes Short Term Goals Number of Weeks 4 Decreased Palpation Tenderness Yes Decrease Wound Area Yes: 25
== END 2020-09-25 13:05 | disposition home or self-care (01) ==
LOC: PT 13:00
PROVIDERS: Visit Provider Podiatrist
DX: M86.172 Other acute osteomyelitis, left ankle and foot (principal)
CPT/HCPCS: 97162; 97597; 97605

== ENCOUNTER 2020-09-26 10:19 | Outpatient (CLI) | payer OTHER, SELFPAY ==
[2020-09-26 10:26] VITALS: BP 117/62; PULSE 75; RESP 18; TEMP 36.6; O2SAT 99
[2020-09-26 11:10] VITALS: BP 125/58; PULSE 71; RESP 18
== END 2020-09-26 11:10 | disposition home or self-care (01) ==
LOC: INF 10:21
PROVIDERS: Visit Provider Podiatrist
DX: M86.172 Other acute osteomyelitis, left ankle and foot (principal); Z48.01 Encounter for change or removal of surgical wound dressing
CPT/HCPCS: 96365; 96367; J0878

== ENCOUNTER 2020-09-27 10:12 | Outpatient (CLI) | payer OTHER, SELFPAY ==
[2020-09-27 10:12] VITALS: BP 114/75; PULSE 68; RESP 18; TEMP 36.4; O2SAT 99
== END 2020-09-27 11:30 | disposition home or self-care (01) ==
LOC: INF 10:12
PROVIDERS: PCP Internal Medicine Adolescent Medicine; Visit Provider Podiatrist
DX: M86.172 Other acute osteomyelitis, left ankle and foot (principal)
CPT/HCPCS: 96365; 96367; J0878

== ENCOUNTER → 2020-09-28 10:11 | Outpatient (CLI) | payer OTHER, SELFPAY ==
[2020-09-28 10:40] VITALS: BP 100/59; PULSE 72; RESP 16; TEMP 36.7; O2SAT 92
== END ==
PROVIDERS: PCP Internal Medicine Adolescent Medicine; Visit Provider Podiatrist
DX: M86.172 Other acute osteomyelitis, left ankle and foot (principal)
CPT/HCPCS: 96365; 96367; G0463; J0878

== ENCOUNTER 2020-09-29 11:20 | Outpatient (CLI) | payer OTHER, SELFPAY ==
[2020-09-29 11:23] VITALS: BMI 20.4
[2020-09-29 11:29] VITALS: BP 136/94; PULSE 99; RESP 18; TEMP 36.7; O2SAT 99
[2020-09-29 11:40] LABS: Basophils # 0.1 K/mm3 (0-0.2); Basophils % 0.8 % (0.1-2.0); Eosinophils % 8.1 % (0.1-12.0); Hematocrit 40.3 % (42.0-52.0); Hemoglobin 13.5 g/dL (14.1-18.0); Lymphocytes # 3.6 K/mm3 (0.7-4.5); Lymphocytes % 29.1 % (10-50); Mean Corpuscular HGB Conc 33.6 g/dL (31.8-35.4); Mean Corpuscular Hemoglobin 30.4 pg (27.0-31.2); Mean Corpuscular Volume 90.3 fl (80-94); Mean Platelet Volume 6.9 fl (7.4-10.4); Monocytes # 0.5 K/mm3 (0.1-1.0); Monocytes % 3.7 % (1.7-9.3); Neutrophils # 7.1 K/mm3 (1.8-7.8); Neutrophils % 58.3 % (37.0-80.0); Platelet Count 339 K/mm3 (142-424); Red Blood Count 4.46 M/mm3 (4.60-6.20); Red Cell Distribution Width 14.1 % (11.5-17.5); White Blood Count 12.2 K/mm3 (4.8-10.8)
[2020-09-29 11:45] LABS: Chloride 102 mmol/L (98-107); Potassium 4.1 mmoL/L (3.5-5.1); Sodium 136 mmol/L (136-145)
[2020-09-29 11:47] LABS: Blood Urea Nitrogen 14 mg/dl (9-20); Creatinine Clearance Estimated 75 mL/min (50-200); Estimated Glomerular Filt Rate 75 ml/min (>60); GFR (African American) 91 ML/MIN (>60)
[2020-09-29 11:48] LABS: Anion Gap 15.1 mEq/L (5-15); Calcium 9.5 mg/dl (8.4-10.2); Carbon Dioxide 23 mmol/L (22.0-30.0); Creatine Kinase 72 U/L (55-170); Glucose 117 mg/dl (74-100)
[2020-09-29 12:25] VITALS: BP 122/79; PULSE 92; RESP 18; TEMP 36.7; O2SAT 98
== END 2020-09-29 12:25 | disposition home or self-care (01) ==
LOC: INF 11:20
PROVIDERS: Visit Provider Podiatrist
DX: M86.172 Other acute osteomyelitis, left ankle and foot (principal)
CPT/HCPCS: 80048; 82550; 85025; 96365; 96367; J0878

== ENCOUNTER 2020-09-30 12:47 | Outpatient (CLI) | payer OTHER, SELFPAY ==
[2020-09-30 13:00] VITALS: BP 113/53; PULSE 74; RESP 18; TEMP 36.9; O2SAT 97
[2020-09-30 13:40] VITALS: BP 114/55; PULSE 69; RESP 18; O2SAT 98
== END 2020-09-30 13:40 | disposition home or self-care (01) ==
LOC: INF 12:47
PROVIDERS: Visit Provider Podiatrist
DX: M86.172 Other acute osteomyelitis, left ankle and foot (principal)
CPT/HCPCS: 96365; 96367; J0878

== ENCOUNTER 2020-10-01 13:18 | Outpatient (CLI) | payer OTHER, SELFPAY ==
[2020-10-01 13:31] VITALS: BP 110/68; PULSE 74; RESP 18; TEMP 36.9; O2SAT 98
[2020-10-01 14:10] VITALS: BP 115/64; PULSE 78; RESP 18; O2SAT 98
== END 2020-10-01 14:10 | disposition home or self-care (01) ==
LOC: INF 13:18
PROVIDERS: Visit Provider Podiatrist
DX: M86.172 Other acute osteomyelitis, left ankle and foot (principal)
CPT/HCPCS: 96365; 96367; J0878

== ENCOUNTER 2020-10-02 10:35 | Outpatient (CLI) | payer OTHER, SELFPAY ==
[2020-10-02 11:00] VITALS: BP 112/73; PULSE 78; RESP 18; TEMP 36.6; O2SAT 99
[2020-10-02 11:30] VITALS: BP 114/72; PULSE 76; RESP 18; O2SAT 98
[2020-10-02 12:05] VITALS: BP 124/68; PULSE 77; RESP 18; O2SAT 99
== END 2020-10-02 12:05 | disposition home or self-care (01) ==
LOC: INF 10:46
PROVIDERS: Visit Provider Podiatrist
DX: M86.172 Other acute osteomyelitis, left ankle and foot (principal)
CPT/HCPCS: 96365; 96367; J0878

== ENCOUNTER 2020-10-03 10:20 | Outpatient (CLI) | payer OTHER, SELFPAY ==
[2020-10-03 10:43] VITALS: BP 110/71; PULSE 69; RESP 18; O2SAT 98
[2020-10-03 11:35] VITALS: BP 136/79; PULSE 71; RESP 18; O2SAT 97
== END 2020-10-03 11:35 | disposition home or self-care (01) ==
LOC: INF 15:21
PROVIDERS: Visit Provider Podiatrist
DX: M86.172 Other acute osteomyelitis, left ankle and foot (principal)
CPT/HCPCS: 96365; 96367; J0878

== ENCOUNTER → 2020-10-04 10:16 | Outpatient (CLI) | payer OTHER, SELFPAY ==
[2020-10-04 10:36] VITALS: BP 118/73; PULSE 77; RESP 18; TEMP 36.7; O2SAT 97
[2020-10-04 11:30] VITALS: BP 140/84; PULSE 77; RESP 18; TEMP 36.6; O2SAT 98
== END ==
PROVIDERS: Visit Provider Podiatrist
DX: M86.172 Other acute osteomyelitis, left ankle and foot (principal)
CPT/HCPCS: 96365; 96367; J0878

== ENCOUNTER → 2020-10-05 10:16 | Outpatient (CLI) | payer OTHER, SELFPAY | PROVIDERS: PCP Internal Medicine Adolescent Medicine; Visit Provider Surgery | DX: M86.172 Other acute osteomyelitis, left ankle and foot (principal) ==

== ENCOUNTER 2020-10-05 10:19 | Outpatient (CLI) | payer OTHER, SELFPAY ==
[2020-10-05 11:00] VITALS: BP 108/71; PULSE 77; RESP 16; O2SAT 99
== END 2020-10-05 11:36 | disposition home or self-care (01) ==
LOC: INF 10:20
PROVIDERS: PCP Internal Medicine Adolescent Medicine; Visit Provider Podiatrist
DX: M86.172 Other acute osteomyelitis, left ankle and foot (principal)
CPT/HCPCS: 96365; 96367; J0878

== ENCOUNTER 2020-10-06 10:26 | Outpatient (CLI) | payer OTHER, SELFPAY ==
[2020-10-06 10:28] VITALS: BMI 20.4
[2020-10-06 10:38] VITALS: BP 128/72; PULSE 86; RESP 18; TEMP 36.6; O2SAT 97
[2020-10-06 10:56] LABS: Basophils # 0.1 K/mm3 (0-0.2); Basophils % 0.8 % (0.1-2.0); Eosinophils # 0.5 K/mm3 (0.0-0.4); Eosinophils % 4.5 % (0.1-12.0); Hemoglobin 13.1 g/dL (14.1-18.0); Lymphocytes # 2.3 K/mm3 (0.7-4.5); Lymphocytes % 23.3 % (10-50); Mean Corpuscular HGB Conc 32.7 g/dL (31.8-35.4); Mean Corpuscular Volume 91.7 fl (80-94); Mean Platelet Volume 7.1 fl (7.4-10.4); Monocytes # 0.3 K/mm3 (0.1-1.0); Monocytes % 3.4 % (1.7-9.3); Neutrophils # 6.8 K/mm3 (1.8-7.8); Platelet Count 251 K/mm3 (142-424); Red Blood Count 4.36 M/mm3 (4.60-6.20); Red Cell Distribution Width 14.3 % (11.5-17.5); White Blood Count 9.9 K/mm3 (4.8-10.8)
[2020-10-06 10:58] LABS: Chloride 105 mmol/L (98-107); Sodium 136 mmol/L (136-145)
[2020-10-06 10:59] LABS: Potassium 4.2 mmoL/L (3.5-5.1)
[2020-10-06 11:01] LABS: Blood Urea Nitrogen 13 mg/dl (9-20); Creatine Kinase 129 U/L (55-170); Creatinine Clearance Estimated 75 mL/min (50-200); Estimated Glomerular Filt Rate 85 ml/min (>60); GFR (African American) 103 ML/MIN (>60)
[2020-10-06 11:02] LABS: Anion Gap 11.2 mEq/L (5-15); Calcium 9.2 mg/dl (8.4-10.2); Carbon Dioxide 24 mmol/L (22.0-30.0); Glucose 116 mg/dl (74-100)
[2020-10-06 11:40] VITALS: BP 130/76; PULSE 81; RESP 18; TEMP 36.6; O2SAT 97
== END 2020-10-06 11:45 | disposition home or self-care (01) ==
PROVIDERS: Podiatrist; PCP Internal Medicine Adolescent Medicine; Visit Provider Internal Medicine Adolescent Medicine
DX: M86.172 Other acute osteomyelitis, left ankle and foot (principal)
CPT/HCPCS: 80048; 82550; 85025; 96365; 96367; G0463; J0878

== ENCOUNTER 2020-10-07 10:27 | Outpatient (CLI) | payer OTHER, SELFPAY ==
[2020-10-07 10:41] VITALS: BP 107/53; PULSE 72; RESP 18; TEMP 36.4; O2SAT 97
[2020-10-07 11:35] VITALS: BP 117/57; PULSE 74; RESP 16; TEMP 36.4; O2SAT 97
== END 2020-10-07 11:35 | disposition home or self-care (01) ==
LOC: INF 10:28
PROVIDERS: Visit Provider Podiatrist
DX: M86.172 Other acute osteomyelitis, left ankle and foot (principal)
CPT/HCPCS: 96365; 96367; J0878

== ENCOUNTER 2020-10-08 10:15 | Outpatient (CLI) | payer OTHER, SELFPAY ==
[2020-10-08 10:38] VITALS: BP 118/76; PULSE 87; RESP 17; TEMP 36.5; O2SAT 97
[2020-10-08 11:25] VITALS: BP 137/58; PULSE 79; RESP 17; O2SAT 96
[2020-10-08 12:00] VITALS: BP 128/65; PULSE 76; RESP 17; O2SAT 96
== END 2020-10-08 12:01 | disposition home or self-care (01) ==
LOC: INF 11:12
PROVIDERS: Visit Provider Internal Medicine Adolescent Medicine
DX: M86.172 Other acute osteomyelitis, left ankle and foot (principal)
CPT/HCPCS: 96365; 96367; J0878

== ENCOUNTER 2020-10-09 10:20 | Outpatient (CLI) | payer OTHER, SELFPAY ==
[2020-10-09 10:35] VITALS: BP 122/62; PULSE 77; RESP 17; TEMP 36.7; O2SAT 98
[2020-10-09 11:39] VITALS: BP 115/68; PULSE 71; RESP 17; O2SAT 97
== END 2020-10-09 11:41 | disposition home or self-care (01) ==
LOC: INF 11:09
PROVIDERS: Visit Provider Internal Medicine Adolescent Medicine
DX: M86.172 Other acute osteomyelitis, left ankle and foot (principal)
CPT/HCPCS: 96365; 96367; J0878

== ENCOUNTER 2020-10-10 10:20 | Outpatient (CLI) | payer OTHER, SELFPAY ==
[2020-10-10 10:35] VITALS: BP 125/64; PULSE 68; RESP 17; TEMP 36.6; O2SAT 99
[2020-10-10 12:03] VITALS: BP 112/73; PULSE 73; RESP 17; O2SAT 97
== END 2020-10-10 12:03 | disposition home or self-care (01) ==
LOC: INF 10:24
PROVIDERS: Visit Provider Internal Medicine Adolescent Medicine
DX: M86.172 Other acute osteomyelitis, left ankle and foot (principal)
CPT/HCPCS: 96365; 96367; J0878

== ENCOUNTER → 2020-10-11 10:12 | Outpatient (CLI) | payer OTHER, SELFPAY ==
[2020-10-11 11:14] VITALS: BP 114/69; PULSE 81; RESP 16; TEMP 36.6; O2SAT 100; BMI 21.1
== END ==
PROVIDERS: PCP Internal Medicine Adolescent Medicine; Visit Provider Internal Medicine Adolescent Medicine
DX: M86.172 Other acute osteomyelitis, left ankle and foot (principal)
CPT/HCPCS: 96365; 96367; G0463; J0878

== ENCOUNTER 2020-10-12 10:12 | Outpatient (CLI) | payer OTHER, SELFPAY ==
[2020-10-12 10:12] VITALS: BP 125/82; PULSE 75; RESP 18; O2SAT 95
== END 2020-10-12 11:40 | disposition home or self-care (01) ==
LOC: INF 10:13
PROVIDERS: PCP Internal Medicine Adolescent Medicine; Visit Provider Internal Medicine Adolescent Medicine
DX: M86.172 Other acute osteomyelitis, left ankle and foot (principal)
CPT/HCPCS: 96365; 96367; J0878

== ENCOUNTER 2020-10-13 10:24 | Outpatient (CLI) | payer OTHER, SELFPAY ==
[2020-10-13 10:32] VITALS: BMI 20.4
[2020-10-13 10:49] VITALS: BP 117/76; PULSE 75; RESP 18; TEMP 36.9; O2SAT 97
[2020-10-13 10:59] LABS: Basophils # 0.1 K/mm3 (0-0.2); Eosinophils # 0.7 K/mm3 (0.0-0.4); Hematocrit 42.2 % (42.0-52.0); Hemoglobin 13.3 g/dL (14.1-18.0); Lymphocytes # 3.5 K/mm3 (0.7-4.5); Lymphocytes % 34.4 % (10-50); Mean Corpuscular HGB Conc 31.5 g/dL (31.8-35.4); Mean Corpuscular Volume 95.1 fl (80-94); Mean Platelet Volume 7.1 fl (7.4-10.4); Monocytes # 0.5 K/mm3 (0.1-1.0); Monocytes % 5.2 % (1.7-9.3); Neutrophils # 5.4 K/mm3 (1.8-7.8); Neutrophils % 52.5 % (37.0-80.0); Platelet Count 223 K/mm3 (142-424); Red Blood Count 4.44 M/mm3 (4.60-6.20); Red Cell Distribution Width 14.1 % (11.5-17.5); White Blood Count 10.3 K/mm3 (4.8-10.8)
[2020-10-13 11:04] LABS: Chloride 104 mmol/L (98-107); Potassium 4.2 mmoL/L (3.5-5.1); Sodium 137 mmol/L (136-145)
[2020-10-13 11:06] LABS: Blood Urea Nitrogen 12 mg/dl (9-20); Creatinine Clearance Estimated 75 mL/min (50-200); Estimated Glomerular Filt Rate 85 ml/min (>60); GFR (African American) 103 ML/MIN (>60)
[2020-10-13 11:07] LABS: Anion Gap 11.2 mEq/L (5-15); Calcium 9.1 mg/dl (8.4-10.2); Carbon Dioxide 26 mmol/L (22.0-30.0); Creatine Kinase 76 U/L (55-170); Glucose 99 mg/dl (74-100)
[2020-10-13 11:19] VITALS: BP 114/70; PULSE 72; RESP 18; O2SAT 97
[2020-10-13 11:45] VITALS: BP 105/59; PULSE 72; RESP 18; O2SAT 98
== END 2020-10-13 11:45 | disposition home or self-care (01) ==
LOC: INF 10:24
PROVIDERS: Visit Provider Internal Medicine Adolescent Medicine
DX: M86.172 Other acute osteomyelitis, left ankle and foot (principal)
CPT/HCPCS: 80048; 82550; 85025; 96365; 96367; J0878

== ENCOUNTER 2020-10-14 10:20 | Outpatient (CLI) | payer OTHER, SELFPAY ==
[2020-10-14 10:50] VITALS: BP 110/62; PULSE 68; RESP 17; TEMP 36.6; O2SAT 97
[2020-10-14 11:45] VITALS: BP 122/71; PULSE 71; RESP 18; O2SAT 99
== END 2020-10-14 11:49 | disposition home or self-care (01) ==
LOC: INF 10:20
PROVIDERS: Visit Provider Internal Medicine Adolescent Medicine
DX: M86.172 Other acute osteomyelitis, left ankle and foot (principal)
CPT/HCPCS: 96365; 96367; J0878

== ENCOUNTER 2020-10-15 10:20 | Outpatient (CLI) | payer OTHER, SELFPAY ==
[2020-10-15 11:00] VITALS: BP 108/62; PULSE 75; RESP 17; TEMP 36.7; O2SAT 96
[2020-10-15 11:57] VITALS: BP 135/72; PULSE 81; RESP 17; O2SAT 97
== END 2020-10-15 12:01 | disposition home or self-care (01) ==
LOC: INF 10:28
PROVIDERS: Visit Provider Internal Medicine Adolescent Medicine
DX: M86.172 Other acute osteomyelitis, left ankle and foot (principal)
CPT/HCPCS: 96365; 96367; J0878

== ENCOUNTER 2020-10-16 10:18 | Outpatient (CLI) | payer OTHER, SELFPAY ==
[2020-10-16 10:51] VITALS: BP 111/62; PULSE 67; RESP 18; TEMP 36.6; O2SAT 97
[2020-10-16 11:35] VITALS: BP 109/53; PULSE 57; RESP 16; TEMP 36.6; O2SAT 98
== END 2020-10-16 11:40 | disposition home or self-care (01) ==
LOC: INF 10:18
PROVIDERS: Visit Provider Internal Medicine Adolescent Medicine
DX: M86.172 Other acute osteomyelitis, left ankle and foot (principal)
CPT/HCPCS: 96365; 96367; J0878

== ENCOUNTER 2020-10-17 10:15 | Outpatient (CLI) | payer OTHER, SELFPAY ==
[2020-10-17 11:00] VITALS: BP 102/55; PULSE 63; RESP 17; TEMP 36.6; O2SAT 97
[2020-10-17 12:03] VITALS: BP 115/64; PULSE 67; RESP 17; TEMP 36.6; O2SAT 96
== END 2020-10-17 12:05 | disposition home or self-care (01) ==
LOC: INF 10:23
PROVIDERS: Visit Provider Internal Medicine Adolescent Medicine
DX: M86.172 Other acute osteomyelitis, left ankle and foot (principal)
CPT/HCPCS: 96365; 96367; G0463; J0878

== ENCOUNTER → 2020-10-18 10:16 | Outpatient (CLI) | payer OTHER, SELFPAY ==
[2020-10-18 10:29] VITALS: BP 101/61; PULSE 98; RESP 20; TEMP 36.7; O2SAT 98
[2020-10-18 10:31] VITALS: BMI 20.7
[2020-10-18 10:50] VITALS: BP 101/61; PULSE 98; RESP 20; TEMP 36.7; O2SAT 98
[2020-10-18 11:31] VITALS: BP 106/64; PULSE 78; RESP 20; TEMP 36.7; O2SAT 100
== END ==
PROVIDERS: PCP Internal Medicine Adolescent Medicine; Visit Provider Internal Medicine Adolescent Medicine
DX: M86.172 Other acute osteomyelitis, left ankle and foot (principal)
CPT/HCPCS: 96365; 96367; G0463; J0878

== ENCOUNTER → 2020-10-19 10:14 | Outpatient (CLI) | payer OTHER, SELFPAY ==
[2020-10-19 10:30] VITALS: BP 105/70; PULSE 72; RESP 18; TEMP 36.8; O2SAT 97
== END ==
PROVIDERS: PCP Internal Medicine Adolescent Medicine; Visit Provider Internal Medicine Adolescent Medicine
DX: M86.172 Other acute osteomyelitis, left ankle and foot (principal)
CPT/HCPCS: 96365; 96367; G0463; J0878

== ENCOUNTER 2020-10-20 10:18 | Outpatient (CLI) | payer OTHER, SELFPAY ==
[2020-10-20 10:24] VITALS: BMI 20.4
[2020-10-20 10:26] VITALS: BP 140/83; PULSE 80; RESP 18; TEMP 36.7; O2SAT 97
[2020-10-20 10:56] LABS: Basophils # 0.1 K/mm3 (0-0.2); Basophils % 0.9 % (0.1-2.0); Eosinophils # 0.4 K/mm3 (0.0-0.4); Eosinophils % 3.5 % (0.1-12.0); Hematocrit 41.8 % (42.0-52.0); Hemoglobin 13.9 g/dL (14.1-18.0); Lymphocytes # 3.4 K/mm3 (0.7-4.5); Lymphocytes % 30.5 % (10-50); Mean Corpuscular HGB Conc 33.3 g/dL (31.8-35.4); Mean Corpuscular Hemoglobin 30.1 pg (27.0-31.2); Mean Corpuscular Volume 90.4 fl (80-94); Monocytes # 0.6 K/mm3 (0.1-1.0); Monocytes % 5.7 % (1.7-9.3); Neutrophils # 6.7 K/mm3 (1.8-7.8); Neutrophils % 59.4 % (37.0-80.0); Platelet Count 256 K/mm3 (142-424); Red Blood Count 4.63 M/mm3 (4.60-6.20); Red Cell Distribution Width 14.4 % (11.5-17.5); White Blood Count 11.2 K/mm3 (4.8-10.8)
[2020-10-20 11:11] LABS: Anion Gap 10.2 mEq/L (5-15); Blood Urea Nitrogen 18 mg/dl (9-20); Calcium 8.7 mg/dl (8.4-10.2); Carbon Dioxide 25 mmol/L (22.0-30.0); Chloride 107 mmol/L (98-107); Creatinine Clearance Estimated 75 mL/min (50-200); Estimated Glomerular Filt Rate 85 ml/min (>60); GFR (African American) 103 ML/MIN (>60); Glucose 80 mg/dl (74-100); Potassium 4.2 mmoL/L (3.5-5.1); Sodium 138 mmol/L (136-145)
[2020-10-20 11:35] VITALS: BP 129/75; PULSE 75; RESP 16; TEMP 36.7; O2SAT 97
[2020-10-20 11:43] LABS: Creatine Kinase 121 U/L (55-170)
== END 2020-10-20 11:35 | disposition home or self-care (01) ==
LOC: INF 10:18
PROVIDERS: Visit Provider Internal Medicine Adolescent Medicine
DX: M86.172 Other acute osteomyelitis, left ankle and foot (principal)
CPT/HCPCS: 80048; 82550; 85025; 96365; 96367; J0878

== ENCOUNTER 2020-10-21 10:23 | Outpatient (CLI) | payer OTHER, SELFPAY ==
[2020-10-21 10:35] VITALS: BP 118/62; PULSE 69; RESP 18; O2SAT 98
== END 2020-10-21 11:45 | disposition home or self-care (01) ==
LOC: INF 10:23
PROVIDERS: Visit Provider Internal Medicine Adolescent Medicine
DX: M86.172 Other acute osteomyelitis, left ankle and foot (principal)
CPT/HCPCS: 96365; 96367; G0463; J0878

== ENCOUNTER 2020-10-22 10:28 | Outpatient (CLI) | payer OTHER, SELFPAY ==
[2020-10-22 10:49] VITALS: BP 110/56; PULSE 62; RESP 18; TEMP 36.7; O2SAT 97
[2020-10-22 11:29] VITALS: BP 110/60; PULSE 59; RESP 18; O2SAT 98
== END 2020-10-22 11:41 | disposition home or self-care (01) ==
LOC: INF 10:28
PROVIDERS: Visit Provider Internal Medicine Adolescent Medicine
DX: M86.172 Other acute osteomyelitis, left ankle and foot (principal)
CPT/HCPCS: 96365; 96367; J0878

== ENCOUNTER 2020-10-23 10:21 | Outpatient (CLI) | payer OTHER, SELFPAY ==
[2020-10-23 10:38] VITALS: BP 114/72; PULSE 70; RESP 17; TEMP 36.8; O2SAT 98
[2020-10-23 11:30] VITALS: BP 134/64; PULSE 74; RESP 17; TEMP 36.7; O2SAT 97
== END 2020-10-23 11:32 | disposition home or self-care (01) ==
LOC: INF 10:21
PROVIDERS: Visit Provider Internal Medicine Adolescent Medicine
DX: M86.172 Other acute osteomyelitis, left ankle and foot (principal)
CPT/HCPCS: 96365; 96367; J0878

== ENCOUNTER 2020-10-24 10:15 | Outpatient (CLI) | payer OTHER, SELFPAY ==
[2020-10-24 10:45] VITALS: BP 115/70; PULSE 69; RESP 18; TEMP 36.8; O2SAT 95
[2020-10-24 11:20] VITALS: BP 128/79; PULSE 78; RESP 18
--- NOTE | 2020-10-24 14:33 | PC.NURSE ---
DRESSING REMOVED FROM LEFT HEEL ULCER. CLEANED WITH NS, APPLIED BETADINE SOAKED GAUZE FOLLOWED BY DRY GAUZE, KERLIX, AND SIMRAN WRAP.
== END 2020-10-24 11:35 | disposition home or self-care (01) ==
LOC: INF 10:18
PROVIDERS: Visit Provider Internal Medicine Adolescent Medicine
DX: M86.172 Other acute osteomyelitis, left ankle and foot (principal)
CPT/HCPCS: 96365; 96367; G0463; J0878

== ENCOUNTER 2020-10-25 10:09 | Outpatient (CLI) | payer OTHER, SELFPAY ==
[2020-10-25 10:43] VITALS: BP 127/67; PULSE 78; RESP 17; O2SAT 96
== END 2020-10-25 11:20 | disposition home or self-care (01) ==
LOC: INF 10:09
PROVIDERS: PCP Internal Medicine Adolescent Medicine; Visit Provider Internal Medicine Adolescent Medicine
DX: M86.172 Other acute osteomyelitis, left ankle and foot (principal)
CPT/HCPCS: 96365; 96367; G0463; J0878

== ENCOUNTER 2020-10-26 10:05 | Outpatient (CLI) | payer OTHER, SELFPAY ==
[2020-10-26 10:30] VITALS: BP 108/71; PULSE 71; RESP 18; O2SAT 98
== END 2020-10-26 11:05 | disposition home or self-care (01) ==
LOC: INF 10:05
PROVIDERS: PCP Internal Medicine Adolescent Medicine; Visit Provider Internal Medicine Adolescent Medicine
DX: M86.172 Other acute osteomyelitis, left ankle and foot (principal)
CPT/HCPCS: 96365; 96367; J0878

== ENCOUNTER 2020-10-27 10:14 | Outpatient (CLI) | payer OTHER, SELFPAY ==
[2020-10-27 10:46] VITALS: BP 120/67; PULSE 76; RESP 16; TEMP 36.4; O2SAT 97
[2020-10-27 11:15] VITALS: BP 101/66; PULSE 67; RESP 15; TEMP 36.6; O2SAT 98
== END 2020-10-27 11:15 | disposition home or self-care (01) ==
LOC: INF 10:14
PROVIDERS: PCP Internal Medicine Adolescent Medicine; Visit Provider Internal Medicine Adolescent Medicine
DX: M86.172 Other acute osteomyelitis, left ankle and foot (principal)
CPT/HCPCS: 96365; 96367; J0878

== ENCOUNTER 2020-10-28 10:34 | Outpatient (CLI) | payer OTHER, SELFPAY ==
[2020-10-28 10:35] VITALS: BP 108/64; PULSE 66; RESP 20; TEMP 36.9; O2SAT 95
[2020-10-28 11:10] VITALS: BP 110/64; PULSE 68; RESP 20; TEMP 36.9; O2SAT 95
== END 2020-10-28 11:15 | disposition home or self-care (01) ==
LOC: INF 10:34
PROVIDERS: Visit Provider Internal Medicine Adolescent Medicine
DX: M86.172 Other acute osteomyelitis, left ankle and foot (principal)
CPT/HCPCS: 96365; 96367; G0463; J0878

== ENCOUNTER 2020-10-29 10:15 | Outpatient (CLI) | payer OTHER, SELFPAY ==
[2020-10-29 10:19] VITALS: BMI 21.1
[2020-10-29 10:32] LABS: Basophils # 0.1 K/mm3 (0-0.2); Basophils % 0.6 % (0.1-2.0); Eosinophils # 0.3 K/mm3 (0.0-0.4); Eosinophils % 2.5 % (0.1-12.0); Hematocrit 43.7 % (42.0-52.0); Hemoglobin 14.6 g/dL (14.1-18.0); Lymphocytes # 3.3 K/mm3 (0.7-4.5); Lymphocytes % 32.5 % (10-50); Mean Corpuscular HGB Conc 33.4 g/dL (31.8-35.4); Mean Corpuscular Hemoglobin 30.6 pg (27.0-31.2); Mean Corpuscular Volume 91.6 fl (80-94); Mean Platelet Volume 7.2 fl (7.4-10.4); Monocytes # 0.5 K/mm3 (0.1-1.0); Monocytes % 4.6 % (1.7-9.3); Neutrophils # 6.1 K/mm3 (1.8-7.8); Neutrophils % 59.8 % (37.0-80.0); Platelet Count 238 K/mm3 (142-424); Red Blood Count 4.77 M/mm3 (4.60-6.20); Red Cell Distribution Width 14.3 % (11.5-17.5); White Blood Count 10.1 K/mm3 (4.8-10.8)
[2020-10-29 10:35] VITALS: BP 129/66; PULSE 65; RESP 18
[2020-10-29 10:45] LABS: Anion Gap 9.9 mEq/L (5-15); Blood Urea Nitrogen 10 mg/dl (9-20); Calcium 9.2 mg/dl (8.4-10.2); Carbon Dioxide 25 mmol/L (22.0-30.0); Chloride 108 mmol/L (98-107); Creatine Kinase 106 U/L (55-170); Creatinine Clearance Estimated 78 mL/min (50-200); Estimated Glomerular Filt Rate 85 ml/min (>60); GFR (African American) 103 ML/MIN (>60); Glucose 88 mg/dl (74-100); Potassium 3.9 mmoL/L (3.5-5.1); Sodium 139 mmol/L (136-145)
[2020-10-29 11:27] VITALS: BP 119/76; PULSE 72; RESP 18
== END 2020-10-29 11:27 | disposition home or self-care (01) ==
LOC: INF 10:18
PROVIDERS: Visit Provider Internal Medicine Adolescent Medicine
DX: M86.172 Other acute osteomyelitis, left ankle and foot (principal)
CPT/HCPCS: 80048; 82550; 85025; 96365; 96367; J0878

== ENCOUNTER 2020-10-30 10:23 | Outpatient (CLI) | payer OTHER, SELFPAY ==
[2020-10-30 10:35] VITALS: BP 124/68; PULSE 76; RESP 18; TEMP 36.7; O2SAT 98
[2020-10-30 11:28] VITALS: BP 129/72; PULSE 74; RESP 16; TEMP 36.7; O2SAT 98
== END 2020-10-30 11:30 | disposition home or self-care (01) ==
LOC: INF 10:23
PROVIDERS: Visit Provider Internal Medicine Adolescent Medicine
DX: M86.172 Other acute osteomyelitis, left ankle and foot (principal)
CPT/HCPCS: 96365; 96367; J0878

== ENCOUNTER 2020-10-31 10:18 | Outpatient (CLI) | payer OTHER, SELFPAY ==
[2020-10-31 10:45] VITALS: BP 103/68; PULSE 69; RESP 17; TEMP 36.8; O2SAT 97
[2020-10-31 11:29] VITALS: BP 116/68; PULSE 71; RESP 17; TEMP 36.7; O2SAT 97
== END 2020-10-31 11:36 | disposition home or self-care (01) ==
LOC: INF 10:19
PROVIDERS: Visit Provider Internal Medicine Adolescent Medicine
DX: M86.172 Other acute osteomyelitis, left ankle and foot (principal)
CPT/HCPCS: 96365; 96367; G0463; J0878

== ENCOUNTER → 2020-11-01 09:36 | Outpatient (CLI) | payer OTHER, SELFPAY ==
[2020-11-01 10:00] VITALS: BP 109/61; PULSE 98; RESP 18; TEMP 36.7; O2SAT 97
== END ==
PROVIDERS: PCP Internal Medicine Adolescent Medicine; Visit Provider Internal Medicine Adolescent Medicine
DX: M86.172 Other acute osteomyelitis, left ankle and foot (principal)
CPT/HCPCS: 96365; 96367; J0878

== ENCOUNTER 2020-11-02 09:29 | Outpatient (CLI) | payer OTHER, SELFPAY ==
[2020-11-02 10:05] VITALS: BP 121/61; PULSE 76; RESP 18; TEMP 37; O2SAT 97
== END 2020-11-02 10:50 | disposition home or self-care (01) ==
LOC: INF 09:30
PROVIDERS: PCP Internal Medicine Adolescent Medicine; Visit Provider Internal Medicine Adolescent Medicine
DX: M86.172 Other acute osteomyelitis, left ankle and foot (principal)
CPT/HCPCS: 96365; 96367; J0878

== ENCOUNTER 2020-11-03 08:52 | Outpatient (CLI) | payer OTHER, SELFPAY ==
[2020-11-03 09:15] VITALS: BP 114/56; PULSE 68; RESP 18; TEMP 36.5; O2SAT 97
[2020-11-03 09:45] VITALS: BP 113/59; PULSE 65; RESP 18; O2SAT 98
[2020-11-03 10:05] VITALS: BP 134/73; PULSE 68; RESP 18; O2SAT 97
== END 2020-11-03 10:08 | disposition home or self-care (01) ==
LOC: INF 08:52
PROVIDERS: Visit Provider Internal Medicine Adolescent Medicine
DX: M86.172 Other acute osteomyelitis, left ankle and foot (principal)
CPT/HCPCS: 96365; 96367; J0878

== ENCOUNTER 2020-11-04 10:20 | Outpatient (CLI) | payer OTHER, SELFPAY ==
[2020-11-04 10:32] VITALS: BMI 21.1
[2020-11-04 10:35] VITALS: BP 143/61; PULSE 68; RESP 17; TEMP 36.8; O2SAT 96
[2020-11-04 10:43] LABS: Basophils # 0.1 K/mm3 (0-0.2); Basophils % 0.6 % (0.1-2.0); Eosinophils # 0.3 K/mm3 (0.0-0.4); Eosinophils % 3.4 % (0.1-12.0); Hematocrit 41.6 % (42.0-52.0); Hemoglobin 14.1 g/dL (14.1-18.0); Lymphocytes # 3.2 K/mm3 (0.7-4.5); Lymphocytes % 32.3 % (10-50); Mean Corpuscular HGB Conc 33.9 g/dL (31.8-35.4); Mean Corpuscular Hemoglobin 30.6 pg (27.0-31.2); Mean Corpuscular Volume 90.2 fl (80-94); Mean Platelet Volume 7.5 fl (7.4-10.4); Monocytes # 0.4 K/mm3 (0.1-1.0); Monocytes % 4.4 % (1.7-9.3); Neutrophils # 5.9 K/mm3 (1.8-7.8); Neutrophils % 59.3 % (37.0-80.0); Platelet Count 246 K/mm3 (142-424); Red Blood Count 4.61 M/mm3 (4.60-6.20); Red Cell Distribution Width 13.9 % (11.5-17.5); White Blood Count 9.9 K/mm3 (4.8-10.8)
[2020-11-04 10:51] LABS: Anion Gap 10.2 mEq/L (5-15); Blood Urea Nitrogen 7 mg/dl (9-20); Calcium 8.8 mg/dl (8.4-10.2); Carbon Dioxide 26 mmol/L (22.0-30.0); Chloride 107 mmol/L (98-107); Creatine Kinase 101 U/L (55-170); Creatinine Clearance Estimated 78 mL/min (50-200); Estimated Glomerular Filt Rate 85 ml/min (>60); GFR (African American) 103 ML/MIN (>60); Glucose 90 mg/dl (74-100); Potassium 4.2 mmoL/L (3.5-5.1); Sodium 139 mmol/L (136-145)
[2020-11-04 11:02] VITALS: BP 133/67; PULSE 68; RESP 17; O2SAT 96
[2020-11-04 12:00] VITALS: BP 138/65; PULSE 61; RESP 17; TEMP 36.7; O2SAT 97
== END 2020-11-04 12:01 | disposition home or self-care (01) ==
LOC: INF 10:31
PROVIDERS: Visit Provider Internal Medicine Adolescent Medicine
DX: M86.172 Other acute osteomyelitis, left ankle and foot (principal)
CPT/HCPCS: 80048; 82550; 85025; 96365; 96367; G0463; J0878

== ENCOUNTER 2020-11-05 10:27 | Outpatient (CLI) | payer OTHER, SELFPAY ==
[2020-11-05 10:41] VITALS: BP 109/65; PULSE 68; RESP 18; TEMP 36.6; O2SAT 98
[2020-11-05 11:30] VITALS: BP 105/60; PULSE 65; RESP 18; O2SAT 97
== END 2020-11-05 11:30 | disposition home or self-care (01) ==
LOC: INF 10:27
PROVIDERS: Visit Provider Internal Medicine Adolescent Medicine
DX: M86.172 Other acute osteomyelitis, left ankle and foot (principal)
CPT/HCPCS: 96365; 96367; J0878

== ENCOUNTER 2020-11-06 10:21 | Outpatient (CLI) | payer OTHER, SELFPAY ==
[2020-11-06 10:29] VITALS: BP 102/65; PULSE 81; RESP 18; TEMP 36.7; O2SAT 97
[2020-11-06 11:00] VITALS: BP 105/69; PULSE 88; RESP 18; O2SAT 97
[2020-11-06 11:30] VITALS: BP 117/61; PULSE 70; RESP 18; O2SAT 97
== END 2020-11-06 11:33 | disposition home or self-care (01) ==
LOC: INF 10:21
PROVIDERS: Visit Provider Internal Medicine Adolescent Medicine
DX: M86.172 Other acute osteomyelitis, left ankle and foot (principal)
CPT/HCPCS: 96365; 96367; J0878

== ENCOUNTER 2020-11-07 10:31 | Outpatient (CLI) | payer OTHER, SELFPAY ==
[2020-11-07 10:35] VITALS: BP 111/55; PULSE 67; RESP 18; TEMP 36.6; O2SAT 97
[2020-11-07 11:20] VITALS: BP 124/65; PULSE 65; RESP 16; TEMP 36.6; O2SAT 97
== END 2020-11-07 11:40 | disposition home or self-care (01) ==
LOC: INF 10:31
PROVIDERS: Visit Provider Internal Medicine Adolescent Medicine
DX: M86.172 Other acute osteomyelitis, left ankle and foot (principal)
CPT/HCPCS: 96365; 96367; G0463; J0878

== ENCOUNTER → 2020-11-08 09:28 | Outpatient (CLI) | payer OTHER, SELFPAY ==
[2020-11-08 09:54] VITALS: BP 120/69; PULSE 73; RESP 14; TEMP 36.7; O2SAT 99
== END ==
PROVIDERS: PCP Internal Medicine Adolescent Medicine; Visit Provider Internal Medicine Adolescent Medicine
DX: M86.172 Other acute osteomyelitis, left ankle and foot (principal)
CPT/HCPCS: 96365; 96367; J0878

== ENCOUNTER → 2020-11-09 09:50 | Outpatient (CLI) | payer OTHER, SELFPAY ==
[2020-11-09 09:50] VITALS: BP 97/59; PULSE 64; RESP 18; TEMP 36.7; O2SAT 100
== END ==
PROVIDERS: PCP Internal Medicine Adolescent Medicine; Visit Provider Internal Medicine Adolescent Medicine
DX: M86.172 Other acute osteomyelitis, left ankle and foot (principal)
CPT/HCPCS: 96365; 96367; G0463; J0878

== ENCOUNTER 2020-11-10 11:34 | Outpatient (CLI) | payer OTHER, SELFPAY ==
[2020-11-10 11:42] VITALS: BMI 20.7
--- NOTE | 2020-11-10 11:55 | PC.NURSE ---
called Dr. Silva office to confirm orders for foot dressing. left a message to call back.
[2020-11-10 11:57] VITALS: BP 145/68; PULSE 80; RESP 17; TEMP 36.8; O2SAT 96
[2020-11-10 12:17] LABS: Basophils # 0.1 K/mm3 (0-0.2); Basophils % 0.6 % (0.1-2.0); Eosinophils # 0.2 K/mm3 (0.0-0.4); Eosinophils % 1.2 % (0.1-12.0); Hematocrit 45.9 % (42.0-52.0); Lymphocytes # 2.6 K/mm3 (0.7-4.5); Lymphocytes % 21.7 % (10-50); Mean Corpuscular HGB Conc 32.6 g/dL (31.8-35.4); Mean Corpuscular Hemoglobin 29.6 pg (27.0-31.2); Mean Corpuscular Volume 90.6 fl (80-94); Mean Platelet Volume 7.3 fl (7.4-10.4); Monocytes # 0.4 K/mm3 (0.1-1.0); Monocytes % 2.9 % (1.7-9.3); Neutrophils # 8.9 K/mm3 (1.8-7.8); Neutrophils % 73.7 % (37.0-80.0); Platelet Count 236 K/mm3 (142-424); Red Blood Count 5.06 M/mm3 (4.60-6.20); Red Cell Distribution Width 14.2 % (11.5-17.5); White Blood Count 12.1 K/mm3 (4.8-10.8)
[2020-11-10 12:28] LABS: Creatine Kinase 90 U/L (55-170)
[2020-11-10 12:41] LABS: Activated Partial Thrombo Time 29.6 seconds (22.8-30.6); Prothrombin Time 11.5 seconds (10.1-12.5)
[2020-11-10 12:45] VITALS: BP 143/67; PULSE 83; RESP 17; TEMP 36.8; O2SAT 97
[2020-11-10 13:22] LABS: INR 0.97 (0.9-1.1)
--- NOTE | 2020-11-10 16:15 | PC.NURSE ---
spoke with Dasia Silva's nurse who stated that Dr. Silva wanted to keep his treatment and dressings the same as we have been currently doing until further notice.
[2020-11-10 18:00] LABS: Chloride 105 mmol/L (98-107)
[2020-11-10 18:01] LABS: Potassium 3.8 mmoL/L (3.5-5.1); Sodium 138 mmol/L (136-145)
[2020-11-10 18:03] LABS: Blood Urea Nitrogen 12 mg/dl (9-20); Creatinine Clearance Estimated 76 mL/min (50-200); Estimated Glomerular Filt Rate 85 ml/min (>60); GFR (African American) 103 ML/MIN (>60)
[2020-11-10 18:04] LABS: Anion Gap 15.8 mEq/L (5-15); Calcium 8.8 mg/dl (8.4-10.2); Carbon Dioxide 21 mmol/L (22.0-30.0); Glucose 134 mg/dl (74-100)
== END 2020-11-10 12:47 | disposition home or self-care (01) ==
LOC: INF 11:34
PROVIDERS: Visit Provider Internal Medicine Adolescent Medicine
DX: Z01.818 Encounter for other preprocedural examination (principal); Z11.52 Encounter for screening for COVID-19; M86.172 Other acute osteomyelitis, left ankle and foot
CPT/HCPCS: 80048; 82550; 85025; 85610; 85730; 96365; 96367; J0878; U0003

== ENCOUNTER 2020-11-11 10:18 | Outpatient (CLI) | payer OTHER, SELFPAY ==
[2020-11-11 10:42] VITALS: BP 121/61; PULSE 70; RESP 17; TEMP 36.6; O2SAT 95
[2020-11-11 12:03] VITALS: BP 115/67; PULSE 73; RESP 17; TEMP 36.5; O2SAT 95
--- NOTE | 2020-11-11 17:30 | PC.NURSE ---
PT FOOT DRESSING NOT CHANGED TODAY. PT STATED IT WAS CHANGED AT [facility] APPOINTMENT YESTERDAY
== END 2020-11-11 12:04 | disposition home or self-care (01) ==
LOC: INF 10:18
PROVIDERS: Visit Provider Internal Medicine Adolescent Medicine
DX: M86.172 Other acute osteomyelitis, left ankle and foot (principal)
CPT/HCPCS: 96365; 96367; J0878

== ENCOUNTER 2020-11-12 10:32 | Outpatient (CLI) | payer OTHER, SELFPAY ==
[2020-11-12 10:54] VITALS: BP 136/71; PULSE 72; RESP 18; TEMP 36.7; O2SAT 99
[2020-11-12 11:40] VITALS: BP 127/61; PULSE 67; RESP 18; O2SAT 99
== END 2020-11-12 11:45 | disposition home or self-care (01) ==
LOC: INF 10:32
PROVIDERS: Visit Provider Internal Medicine Adolescent Medicine
DX: M86.172 Other acute osteomyelitis, left ankle and foot (principal)
CPT/HCPCS: 96365; 96367; J0878

== ENCOUNTER 2020-11-14 09:25 | Outpatient (CLI) | payer OTHER, SELFPAY ==
[2020-11-14 10:51] VITALS: BP 126/74; PULSE 75; RESP 18; TEMP 36.4; O2SAT 97
== END 2020-11-14 10:20 | disposition home or self-care (01) ==
LOC: INF 09:25
PROVIDERS: Visit Provider Internal Medicine Adolescent Medicine
DX: M86.172 Other acute osteomyelitis, left ankle and foot (principal)
CPT/HCPCS: 96365; 96367; G0463; J0878

== ENCOUNTER 2020-11-15 10:02 | Outpatient (CLI) | payer OTHER, SELFPAY ==
[2020-11-15 11:28] VITALS: BP 122/18; PULSE 66; RESP 18; O2SAT 98
== END 2020-11-15 11:28 | disposition home or self-care (01) ==
LOC: INF 10:03
PROVIDERS: PCP Internal Medicine Adolescent Medicine; Visit Provider Internal Medicine Adolescent Medicine
DX: M86.172 Other acute osteomyelitis, left ankle and foot (principal)
CPT/HCPCS: 96365; 96367; J0878

== ENCOUNTER 2020-11-16 10:00 | Outpatient (CLI) | payer OTHER, SELFPAY ==
[2020-11-16 10:15] VITALS: BP 105/58; PULSE 66; RESP 16; O2SAT 100
== END 2020-11-16 11:00 | disposition home or self-care (01) ==
LOC: INF 10:01
PROVIDERS: PCP Internal Medicine Adolescent Medicine; Visit Provider Internal Medicine Adolescent Medicine
DX: M86.172 Other acute osteomyelitis, left ankle and foot (principal)
CPT/HCPCS: 96365; 96367; J0878

== ENCOUNTER 2020-11-17 10:20 | Outpatient (CLI) | payer OTHER, SELFPAY ==
[2020-11-17 10:40] VITALS: BMI 21.1
[2020-11-17 10:46] VITALS: BP 106/63; PULSE 64; RESP 17; TEMP 36.8; O2SAT 96
[2020-11-17 10:57] LABS: Basophils # 0.1 K/mm3 (0-0.2); Basophils % 0.8 % (0.1-2.0); Eosinophils # 0.4 K/mm3 (0.0-0.4); Eosinophils % 3.2 % (0.1-12.0); Hematocrit 41.8 % (42.0-52.0); Hemoglobin 14.2 g/dL (14.1-18.0); Lymphocytes # 3.2 K/mm3 (0.7-4.5); Mean Corpuscular HGB Conc 33.9 g/dL (31.8-35.4); Mean Corpuscular Hemoglobin 30.7 pg (27.0-31.2); Mean Corpuscular Volume 90.6 fl (80-94); Mean Platelet Volume 7.5 fl (7.4-10.4); Monocytes # 0.5 K/mm3 (0.1-1.0); Monocytes % 4.1 % (1.7-9.3); Neutrophils # 7.3 K/mm3 (1.8-7.8); Neutrophils % 63.9 % (37.0-80.0); Platelet Count 207 K/mm3 (142-424); Red Blood Count 4.61 M/mm3 (4.60-6.20); White Blood Count 11.3 K/mm3 (4.8-10.8)
[2020-11-17 11:00] LABS: Chloride 105 mmol/L (98-107); Sodium 139 mmol/L (136-145)
[2020-11-17 11:01] LABS: Potassium 4.2 mmoL/L (3.5-5.1)
[2020-11-17 11:03] LABS: Blood Urea Nitrogen 13 mg/dl (9-20); Creatine Kinase 88 U/L (55-170); Creatinine Clearance Estimated 78 mL/min (50-200); Estimated Glomerular Filt Rate 75 ml/min (>60); GFR (African American) 91 ML/MIN (>60)
[2020-11-17 11:04] LABS: Anion Gap 13.2 mEq/L (5-15); Calcium 8.8 mg/dl (8.4-10.2); Carbon Dioxide 25 mmol/L (22.0-30.0); Glucose 94 mg/dl (74-100)
[2020-11-17 11:31] VITALS: BP 109/69; PULSE 71; RESP 17; TEMP 36.4; O2SAT 97
== END 2020-11-17 11:32 | disposition home or self-care (01) ==
LOC: INF 10:22
PROVIDERS: Visit Provider Internal Medicine Adolescent Medicine
DX: M86.172 Other acute osteomyelitis, left ankle and foot (principal)
CPT/HCPCS: 80048; 82550; 85025; 96365; 96367; J0878

== ENCOUNTER 2020-11-18 10:18 | Outpatient (CLI) | payer OTHER, SELFPAY ==
[2020-11-18 10:50] VITALS: BP 124/76; PULSE 71; RESP 18; TEMP 36.9; O2SAT 97
[2020-11-18 11:20] VITALS: BP 118/79; PULSE 78; RESP 18; O2SAT 97
[2020-11-18 11:50] VITALS: BP 129/81; PULSE 76; RESP 18; O2SAT 98
== END 2020-11-18 11:50 | disposition home or self-care (01) ==
LOC: INF 10:18
PROVIDERS: Visit Provider Internal Medicine Adolescent Medicine
DX: M86.172 Other acute osteomyelitis, left ankle and foot (principal)
CPT/HCPCS: 96365; 96367; G0463; J0878

== ENCOUNTER 2020-11-19 10:10 | Outpatient (CLI) | payer OTHER, SELFPAY ==
[2020-11-19 10:31] VITALS: BP 113/74; PULSE 67; RESP 18; O2SAT 97
[2020-11-19 11:30] VITALS: BP 128/76; PULSE 71; RESP 18
== END 2020-11-19 11:30 | disposition home or self-care (01) ==
LOC: INF 10:13
PROVIDERS: Visit Provider Internal Medicine Adolescent Medicine
DX: M86.172 Other acute osteomyelitis, left ankle and foot (principal); Z48.00 Encounter for change or removal of nonsurgical wound dressing; Z45.2 Encounter for adjustment and management of vascular access device
CPT/HCPCS: 96365; 96367; J0878

== ENCOUNTER 2020-11-20 10:15 | Outpatient (CLI) | payer OTHER, SELFPAY ==
[2020-11-20 10:30] VITALS: BP 114/59; PULSE 64; RESP 18; O2SAT 98
[2020-11-20 11:25] VITALS: BP 124/66; PULSE 66; RESP 18
== END 2020-11-20 11:25 | disposition home or self-care (01) ==
LOC: INF 10:19
PROVIDERS: Visit Provider Internal Medicine Adolescent Medicine
DX: M86.172 Other acute osteomyelitis, left ankle and foot (principal)
CPT/HCPCS: 96365; 96367; J0878

== ENCOUNTER 2020-11-21 10:20 | Outpatient (CLI) | payer OTHER, SELFPAY ==
[2020-11-21 10:30] VITALS: BP 118/62; PULSE 66; RESP 18; TEMP 36.5; O2SAT 100
[2020-11-21 11:18] VITALS: BP 109/68; PULSE 72; RESP 18; TEMP 36.5; O2SAT 99
== END 2020-11-21 11:20 | disposition home or self-care (01) ==
LOC: INF 10:20
PROVIDERS: Visit Provider Internal Medicine Adolescent Medicine
DX: M86.172 Other acute osteomyelitis, left ankle and foot (principal)
CPT/HCPCS: 96365; 96367; J0878

== ENCOUNTER 2020-11-22 09:50 | Outpatient (CLI) | payer OTHER, SELFPAY | END 2020-11-22 10:50 | disposition home or self-care (01) | LOC: INF 09:51 | PROVIDERS: PCP Internal Medicine Adolescent Medicine; Visit Provider Internal Medicine Adolescent Medicine | DX: M86.172 Other acute osteomyelitis, left ankle and foot (principal) | CPT/HCPCS: 96365; 96367; J0878 ==

== ENCOUNTER 2020-11-23 09:36 | Outpatient (CLI) | payer OTHER, SELFPAY ==
[2020-11-23 09:36] VITALS: BP 102/73; PULSE 69; RESP 17; TEMP 36.9; O2SAT 95
== END 2020-11-23 11:00 | disposition home or self-care (01) ==
LOC: INF 09:37
PROVIDERS: PCP Internal Medicine Adolescent Medicine; Visit Provider Internal Medicine Adolescent Medicine
DX: M86.172 Other acute osteomyelitis, left ankle and foot (principal)
CPT/HCPCS: 96365; 96367; J0878

== ENCOUNTER 2020-11-24 10:18 | Outpatient (CLI) | payer OTHER, SELFPAY ==
[2020-11-24 10:21] VITALS: BMI 20.4
[2020-11-24 10:34] VITALS: BP 147/74; PULSE 76; RESP 18; TEMP 36.8; O2SAT 97
[2020-11-24 10:39] LABS: Basophils # 0.1 K/mm3 (0-0.2); Basophils % 0.7 % (0.1-2.0); Eosinophils # 0.5 K/mm3 (0.0-0.4); Eosinophils % 3.9 % (0.1-12.0); Hematocrit 42.5 % (42.0-52.0); Hemoglobin 14.6 g/dL (14.1-18.0); Lymphocytes # 4.3 K/mm3 (0.7-4.5); Lymphocytes % 36.1 % (10-50); Mean Corpuscular HGB Conc 34.4 g/dL (31.8-35.4); Mean Corpuscular Hemoglobin 30.8 pg (27.0-31.2); Mean Corpuscular Volume 89.7 fl (80-94); Mean Platelet Volume 7.3 fl (7.4-10.4); Monocytes # 0.5 K/mm3 (0.1-1.0); Neutrophils # 6.6 K/mm3 (1.8-7.8); Neutrophils % 55.4 % (37.0-80.0); Platelet Count 225 K/mm3 (142-424); Red Blood Count 4.73 M/mm3 (4.60-6.20); Red Cell Distribution Width 13.7 % (11.5-17.5); White Blood Count 11.9 K/mm3 (4.8-10.8)
[2020-11-24 10:46] LABS: Chloride 103 mmol/L (98-107); Potassium 4.2 mmoL/L (3.5-5.1); Sodium 137 mmol/L (136-145)
[2020-11-24 10:49] LABS: Anion Gap 13.2 mEq/L (5-15); Blood Urea Nitrogen 10 mg/dl (9-20); Calcium 8.7 mg/dl (8.4-10.2); Carbon Dioxide 25 mmol/L (22.0-30.0); Creatine Kinase 89 U/L (55-170); Creatinine Clearance Estimated 75 mL/min (50-200); Estimated Glomerular Filt Rate 75 ml/min (>60); GFR (African American) 91 ML/MIN (>60); Glucose 82 mg/dl (74-100)
[2020-11-24 11:04] VITALS: BP 141/72; PULSE 77; RESP 18; O2SAT 97
[2020-11-24 11:25] VITALS: BP 135/76; PULSE 79; RESP 18; O2SAT 97
== END 2020-11-24 11:30 | disposition home or self-care (01) ==
LOC: INF 10:18
PROVIDERS: Visit Provider Internal Medicine Adolescent Medicine
DX: M86.172 Other acute osteomyelitis, left ankle and foot (principal)
CPT/HCPCS: 80048; 82550; 85025; 96365; 96367; J0878

== ENCOUNTER 2020-11-25 10:20 | Outpatient (CLI) | payer OTHER, SELFPAY ==
[2020-11-25 10:30] VITALS: BP 114/60; PULSE 62; RESP 18; O2SAT 95
[2020-11-25 11:50] VITALS: BP 121/68; PULSE 65; RESP 18
== END 2020-11-25 11:50 | disposition home or self-care (01) ==
LOC: INF 10:21
PROVIDERS: Visit Provider Internal Medicine Adolescent Medicine
DX: M86.172 Other acute osteomyelitis, left ankle and foot (principal)
CPT/HCPCS: 96365; 96367; J0878

== ENCOUNTER 2020-11-26 10:21 | Outpatient (CLI) | payer OTHER, SELFPAY ==
[2020-11-26 10:35] VITALS: BP 104/55; PULSE 61; RESP 18; TEMP 36.8; O2SAT 96
[2020-11-26 11:25] VITALS: BP 115/59; PULSE 68; RESP 18; O2SAT 96
== END 2020-11-26 11:25 | disposition home or self-care (01) ==
LOC: INF 10:21
PROVIDERS: Visit Provider Internal Medicine Adolescent Medicine
DX: M86.172 Other acute osteomyelitis, left ankle and foot (principal); I96 Gangrene, not elsewhere classified
CPT/HCPCS: 96365; 96367; J0878

== ENCOUNTER 2020-11-27 10:20 | Outpatient (CLI) | payer OTHER, SELFPAY ==
[2020-11-27 10:38] VITALS: BP 114/70; PULSE 71; RESP 18; O2SAT 96
[2020-11-27 11:35] VITALS: BP 130/62; PULSE 64; RESP 18
== END 2020-11-27 11:35 | disposition home or self-care (01) ==
LOC: INF 10:34
PROVIDERS: Visit Provider Internal Medicine Adolescent Medicine
DX: M86.172 Other acute osteomyelitis, left ankle and foot (principal); I96 Gangrene, not elsewhere classified
CPT/HCPCS: 96365; 96367; J0878

== ENCOUNTER 2020-11-28 10:13 | Outpatient (CLI) | payer OTHER, SELFPAY ==
[2020-11-28 10:30] VITALS: BP 157/61; PULSE 79; RESP 18; O2SAT 97
[2020-11-28 11:30] VITALS: BP 138/65; PULSE 75; RESP 18
== END 2020-11-28 11:30 | disposition home or self-care (01) ==
LOC: INF 10:20
PROVIDERS: Visit Provider Internal Medicine Adolescent Medicine
DX: M86.172 Other acute osteomyelitis, left ankle and foot (principal); I96 Gangrene, not elsewhere classified
CPT/HCPCS: 96365; 96367; J0878

== ENCOUNTER 2020-11-29 09:49 | Outpatient (CLI) | payer OTHER, SELFPAY ==
[2020-11-29 10:20] VITALS: BP 137/66; PULSE 64; RESP 18; TEMP 36.9; O2SAT 99
[2020-11-29 11:13] VITALS: BP 132/79; PULSE 63; RESP 18; O2SAT 99
== END 2020-11-29 11:10 | disposition home or self-care (01) ==
LOC: INF 09:49
PROVIDERS: PCP Internal Medicine Adolescent Medicine; Visit Provider Internal Medicine Adolescent Medicine
DX: M86.172 Other acute osteomyelitis, left ankle and foot (principal); I96 Gangrene, not elsewhere classified
CPT/HCPCS: 96365; 96367; J0878

== ENCOUNTER → 2020-11-30 10:14 | Outpatient (CLI) | payer OTHER, SELFPAY ==
[2020-11-30 10:36] VITALS: BP 140/89; PULSE 82; RESP 16; O2SAT 97
== END | disposition home or self-care (01) ==
PROVIDERS: PCP Internal Medicine Adolescent Medicine; Visit Provider Internal Medicine Adolescent Medicine
DX: M86.172 Other acute osteomyelitis, left ankle and foot (principal); I96 Gangrene, not elsewhere classified
CPT/HCPCS: 96365; 96367; J0878

== ENCOUNTER 2020-12-01 10:20 | Outpatient (CLI) | payer OTHER, SELFPAY ==
[2020-12-01 10:31] VITALS: BMI 21.1
[2020-12-01 10:37] VITALS: BP 115/76; PULSE 86; RESP 17; TEMP 36.8; O2SAT 96
[2020-12-01 10:57] LABS: Basophils # 0.1 K/mm3 (0-0.2); Basophils % 0.7 % (0.1-2.0); Eosinophils # 0.4 K/mm3 (0.0-0.4); Eosinophils % 3.4 % (0.1-12.0); Hematocrit 44.3 % (42.0-52.0); Hemoglobin 14.4 g/dL (14.1-18.0); Lymphocytes # 3.3 K/mm3 (0.7-4.5); Lymphocytes % 29.4 % (10-50); Mean Corpuscular HGB Conc 32.4 g/dL (31.8-35.4); Mean Corpuscular Hemoglobin 29.1 pg (27.0-31.2); Mean Corpuscular Volume 89.9 fl (80-94); Monocytes # 0.6 K/mm3 (0.1-1.0); Monocytes % 5.2 % (1.7-9.3); Neutrophils # 6.8 K/mm3 (1.8-7.8); Neutrophils % 61.2 % (37.0-80.0); Platelet Count 204 K/mm3 (142-424); Red Blood Count 4.93 M/mm3 (4.60-6.20); Red Cell Distribution Width 13.4 % (11.5-17.5); White Blood Count 11.1 K/mm3 (4.8-10.8)
[2020-12-01 11:02] LABS: Chloride 107 mmol/L (98-107); Potassium 4.1 mmoL/L (3.5-5.1); Sodium 139 mmol/L (136-145)
[2020-12-01 11:05] LABS: Anion Gap 11.1 mEq/L (5-15); Blood Urea Nitrogen 14 mg/dl (9-20); Carbon Dioxide 25 mmol/L (22.0-30.0); Creatinine Clearance Estimated 78 mL/min (50-200); Estimated Glomerular Filt Rate 75 ml/min (>60); GFR (African American) 91 ML/MIN (>60)
[2020-12-01 11:06] LABS: Calcium 8.8 mg/dl (8.4-10.2); Creatine Kinase 131 U/L (55-170); Glucose 96 mg/dl (74-100)
[2020-12-01 11:25] VITALS: BP 118/85; PULSE 64; RESP 17; O2SAT 97
== END 2020-12-01 11:27 | disposition home or self-care (01) ==
LOC: INF 10:31
PROVIDERS: Visit Provider Internal Medicine Adolescent Medicine
DX: M86.172 Other acute osteomyelitis, left ankle and foot (principal)
CPT/HCPCS: 80048; 82550; 85025; 96365; 96367; J0878; U0003

== ENCOUNTER 2020-12-02 10:16 | Outpatient (CLI) | payer OTHER, SELFPAY ==
[2020-12-02 10:25] VITALS: BP 104/64; PULSE 69; RESP 18; O2SAT 95
[2020-12-02 11:33] VITALS: BP 122/68; PULSE 66; RESP 18
== END 2020-12-02 11:33 | disposition home or self-care (01) ==
LOC: INF 10:21
PROVIDERS: Visit Provider Internal Medicine Adolescent Medicine
DX: M86.172 Other acute osteomyelitis, left ankle and foot (principal)
CPT/HCPCS: 96365; 96367; J0878

== ENCOUNTER 2020-12-03 10:20 | Outpatient (CLI) | payer OTHER, SELFPAY ==
--- NOTE | 2020-12-03 10:36 | PC.NURSE ---
this nurse spoke with in Dr. Silva office who confirmed that the pts COVID test was does in an acceptable time frame for his procedure on tuesday 12/05
[2020-12-03 10:39] VITALS: BP 138/63; PULSE 63; RESP 18; TEMP 36.8; O2SAT 98
[2020-12-03 11:09] VITALS: BP 135/61; PULSE 67; RESP 18; O2SAT 99
[2020-12-03 11:30] VITALS: BP 131/68; PULSE 68; RESP 18; O2SAT 98
== END 2020-12-03 11:30 | disposition home or self-care (01) ==
LOC: INF 10:20
PROVIDERS: Visit Provider Internal Medicine Adolescent Medicine
DX: M86.172 Other acute osteomyelitis, left ankle and foot (principal)
CPT/HCPCS: 96365; 96367; J0878

== ENCOUNTER 2020-12-04 09:51 | Outpatient (CLI) | payer OTHER, SELFPAY ==
[2020-12-04 10:08] VITALS: BP 131/73; PULSE 72; RESP 18; TEMP 36.9; O2SAT 97
[2020-12-04 10:52] VITALS: BP 138/76; PULSE 74; RESP 16; TEMP 36.9; O2SAT 97
== END 2020-12-04 10:55 | disposition home or self-care (01) ==
LOC: INF 09:51
PROVIDERS: Visit Provider Internal Medicine Adolescent Medicine
DX: M86.172 Other acute osteomyelitis, left ankle and foot (principal)
CPT/HCPCS: 96365; 96367; J0878

== ENCOUNTER 2020-12-09 09:50 | Outpatient (CLI) | payer OTHER, SELFPAY | END 2020-12-09 10:20 | disposition home or self-care (01) | LOC: INF 10:17 | PROVIDERS: Visit Provider Internal Medicine Adolescent Medicine | DX: M86.172 Other acute osteomyelitis, left ankle and foot (principal); Z45.2 Encounter for adjustment and management of vascular access device | CPT/HCPCS: 96523; G0463 ==

== ENCOUNTER 2020-12-12 10:00 | Outpatient (CLI) | payer OTHER, SELFPAY ==
[2020-12-12 10:08] VITALS: BMI 21.1
[2020-12-12 10:24] LABS: Basophils # 0.1 K/mm3 (0-0.2); Basophils % 0.5 % (0.1-2.0); Eosinophils # 0.2 K/mm3 (0.0-0.4); Eosinophils % 1.8 % (0.1-12.0); Hematocrit 40.4 % (42.0-52.0); Hemoglobin 13.9 g/dL (14.1-18.0); Lymphocytes # 2.7 K/mm3 (0.7-4.5); Lymphocytes % 24.8 % (10-50); Mean Corpuscular HGB Conc 34.3 g/dL (31.8-35.4); Mean Corpuscular Volume 87.4 fl (80-94); Mean Platelet Volume 7.1 fl (7.4-10.4); Monocytes # 0.5 K/mm3 (0.1-1.0); Monocytes % 4.6 % (1.7-9.3); Neutrophils # 7.3 K/mm3 (1.8-7.8); Neutrophils % 68.4 % (37.0-80.0); Platelet Count 186 K/mm3 (142-424); Red Blood Count 4.63 M/mm3 (4.60-6.20); Red Cell Distribution Width 14.1 % (11.5-17.5); White Blood Count 10.7 K/mm3 (4.8-10.8)
[2020-12-12 10:31] LABS: Chloride 102 mmol/L (98-107); Potassium 4.5 mmoL/L (3.5-5.1); Sodium 134 mmol/L (136-145)
[2020-12-12 10:34] LABS: Alanine Aminotransferase 15 U/L (12-78); Albumin Level 4.2 g/dl (3.5-5.0); Albumin/Globulin Ratio 1.4 (1.1-1.8); Alkaline Phosphatase 96 U/L (38-126); Anion Gap 12.5 mEq/L (5-15); Aspartate Amino Transferase 27 U/L (17-59); Bilirubin,Total 1.4 mg/dl (0.2-1.3); Blood Urea Nitrogen 14 mg/dl (9-20); Calcium 8.6 mg/dl (8.4-10.2); Carbon Dioxide 24 mmol/L (22.0-30.0); Creatine Kinase 160 U/L (55-170); Creatinine Clearance Estimated 78 mL/min (50-200); Estimated Glomerular Filt Rate 85 ml/min (>60); GFR (African American) 103 ML/MIN (>60); Globulin 3.1 g/dL (1.3-3.2); Glucose 98 mg/dl (74-100); Total Protein,Serum 7.3 g/dl (6.3-8.2)
== END 2020-12-12 10:30 | disposition home or self-care (01) ==
LOC: INF 10:07
PROVIDERS: Visit Provider Internal Medicine Adolescent Medicine
DX: M86.172 Other acute osteomyelitis, left ankle and foot (principal); Z48.00 Encounter for change or removal of nonsurgical wound dressing
CPT/HCPCS: 80053; 82550; 85025; G0463

== ENCOUNTER 2020-12-16 08:50 | Outpatient (CLI) | payer OTHER, SELFPAY ==
--- NOTE | 2020-12-16 09:00 | PC.NURSE ---
0900-pt states left heel dressing changed per md office in [place] yesterday 12/15/20 and pt states he has another appointment with a new foot dr on Tuesday so pt will not be back this week for twice weekly dressing changes.
[2020-12-16 09:05] VITALS: BP 164/83; PULSE 76; RESP 18
== END 2020-12-16 09:05 | disposition home or self-care (01) ==
LOC: INF 08:55
PROVIDERS: Visit Provider Internal Medicine Adolescent Medicine
DX: M86.172 Other acute osteomyelitis, left ankle and foot (principal); Z48.00 Encounter for change or removal of nonsurgical wound dressing
CPT/HCPCS: G0463

== ENCOUNTER → 2021-05-04 11:43 | Outpatient (CLI) | payer OTHER, SELFPAY ==
--- NOTE | 2021-05-04 11:49 | XR_ITS ---
PROCEDURE: XR FOOT LT MIN 3V CLINICAL INDICATION: PERIPHERAL ARTERIAL DISEASE, OTHER ACUTE OSTEOMYELITIS COMPARISON: CR XR FOOT LT MIN 3V from 08/18/2020 FINDINGS: There is an old 5th metatarsal fracture which appears healed. There is good alignment. There is generalized osteopenia. No acute fracture or dislocation. No bony erosive process. The joint spaces are well-preserved. No significant degenerative/arthritic changes. No erosive changes evident. Other findings:None. IMPRESSION: Generalized osteopenia with old 5th metatarsal fracture. No acute finding. Dictated by: Syed Ford MD 05/04/2021 15:50 Syed Ford MD in [place] 05/04/2021 15:50
[2021-05-04 12:33] LABS: Basophils # 0.1 K/mm3 (0-0.2); Basophils % 0.7 % (0.1-2.0); Eosinophils # 0.2 K/mm3 (0.0-0.4); Eosinophils % 1.5 % (0.1-12.0); Hematocrit 47.1 % (42.0-52.0); Hemoglobin 16.1 g/dL (14.1-18.0); Lymphocytes # 2.5 K/mm3 (0.7-4.5); Lymphocytes % 22.8 % (10-50); Mean Corpuscular HGB Conc 34.1 g/dL (31.8-35.4); Mean Corpuscular Hemoglobin 31.3 pg (27.0-31.2); Mean Platelet Volume 7.3 fl (7.4-10.4); Monocytes # 0.4 K/mm3 (0.1-1.0); Monocytes % 3.5 % (1.7-9.3); Neutrophils % 71.6 % (37.0-80.0); Platelet Count 285 K/mm3 (142-424); Red Blood Count 5.13 M/mm3 (4.60-6.20); Red Cell Distribution Width 13.6 % (11.5-17.5); White Blood Count 11.1 K/mm3 (4.8-10.8)
[2021-05-04 13:26] LABS: Chloride 100 mmol/L (98-107)
[2021-05-04 13:27] LABS: Potassium 4.7 mmoL/L (3.5-5.1); Sodium 136 mmol/L (136-145)
[2021-05-04 13:29] LABS: Alanine Aminotransferase 29 U/L (12-78); Alkaline Phosphatase 96 U/L (38-126); Anion Gap 12.7 mEq/L (5-15); Aspartate Amino Transferase 50 U/L (17-59); Bilirubin,Total 0.7 mg/dl (0.2-1.3); Blood Urea Nitrogen 7 mg/dl (9-20); Carbon Dioxide 28 mmol/L (22.0-30.0); Estimated Glomerular Filt Rate 75 ml/min (>60); GFR (African American) 91 ML/MIN (>60); Triglycerides 121 mg/dl (30-150); VLDL Cholesterol 24 mg/dL (0-40)
[2021-05-04 13:30] LABS: Albumin Level 4.5 g/dl (3.5-5.0); Albumin/Globulin Ratio 1.6 (1.1-1.8); Calcium 9.7 mg/dl (8.4-10.2); Chol/HDL Ratio 2.3 (1-3.5); Cholesterol 120 mg/dl (140-200); Globulin 2.8 g/dL (1.3-3.2); Glucose 100 mg/dl (74-100); HDL Cholesterol 53 mg/dl (40-60); Total Protein,Serum 7.3 g/dl (6.3-8.2)
[2021-05-04 13:42] LABS: Direct LDL Cholesterol 44.31 mg/dL (100-129)
== END ==
PROVIDERS: PCP Internal Medicine Adolescent Medicine; Visit Provider Internal Medicine Adolescent Medicine
DX: M86.172 Other acute osteomyelitis, left ankle and foot (principal); I70.262 Atherosclerosis of native arteries of extremities with gangrene, left leg; I73.9 Peripheral vascular disease, unspecified
CPT/HCPCS: 36415; 73630; 80053; 80061; 85025

== ENCOUNTER 2022-10-22 09:51 | Outpatient (RCR) | payer MEDICARE, SELFPAY ==
--- NOTE | 2022-10-22 10:51 | HMH.OTOPEV ---
OT Inpatient Evaluation Rehab OT Outpatient Eval Start: 10/22/22 10:28 Freq: Status: Active Protocol: Document 10/22/22 10:28 STEVEN (Rec: 10/22/22 10:48 STEVEN [id number]) E-signed By Анна Lundberg, OT Outpatient Therapy Subjective History Subjective History 67 year old male referred to skilled OP OT services. Patient had L BKA ~ 1 year ago and ortho is wanting him to go to a rehab inpatient hospital in [facility]. Patient lives alone is a 1 story old store house with 2-3 ALLEN. Independent with all ADLs, household tasks and lawncare. Patient is still driving and has B UE WFL. Patient stated that his shoulders are sore in the morning when he wakes up, however does not have any pain . Patient is able to complete any tasks at home and he just wants to focus on walking to improve balance. Level of pain today (0-10) 0 Pain scale - at its best (0-10) 0 Pain scale - at its worst (0-10) 0 OT Outpatient Assessment Prognosis Rehab Potential Innapropriate for Skilled Therapy Comment Patient appears to be at baseline at this time. Patient is able to perform all ADLs, housekeeping tasks, lawn care tasks and fx'l mobility with usage of RW independently. Patient stated that he wants to just focus on walking with prosthetic. Clinical Impression Consistent with Diagnosis No Outpatient Therapy Plan of Care Addendums This patient is a candidate for social No or vocational rehab? Patient/Guardian verbally acknowledges Yes understanding of treatment program and consents to further treatment? Patient/Guardian verbally acknowledges Yes understanding of diagnosis, prognosis and goals for treatment? G -code Required No Eval Complexity OT Charge 33433 - Low Complexity Shoulder/Elbow Eval Shoulder Objective Measurements Elbow Objective Measurements PHYSICIAN CERTIFICATION: I certify the specified therapy services for Wade Chavez are required, authoriz
== END 2022-10-22 09:55 | disposition home or self-care (01) ==
LOC: OT 09:51
PROVIDERS: PCP Internal Medicine Adolescent Medicine; Visit Provider Internal Medicine Adolescent Medicine
DX: Z89.612 Acquired absence of left leg above knee (principal); Z98.890 Other specified postprocedural states
CPT/HCPCS: 97165

== ENCOUNTER 2023-01-25 08:00 | Outpatient (RCR) | payer MEDICARE, SELFPAY ==
--- NOTE | 2022-10-05 15:52 | HMH.PTOPEV ---
PT Outpatient Evaluation Rehab PT Outpatient Evaluation Start: 10/05/22 15:02 Freq: Status: Active Protocol: Document 10/05/22 15:36 PHOKAYLENE (Rec: 10/05/22 15:52 PHORDONG [id number]) E-signed By Fred Guillaume, PT Outpatient Therapy Subjective History Subjective History This is the initial PT eval for Wade Chavez 67 yowm who presents with new L LE prosthesis for balance and gait training. He states, I don't know if they thought I'd get into therapy this quick, because I just got this leg yesterday. 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 He reports no difficulty with donning/ doffing of the prosthesis at this time. He is currently using RW for gait assistance. *TUG this date 22 sec. Chief Complaint Decreased Coordination Prior Functional Limitations Walking Current Functional Limitations Walking Level of pain today (0-10) 0 Balance Eval Gait/Posture Asssessment General Gait Observation Decrease Stride Lngth (R) Assistive Devices Rolling / Wheeled Walker Level of Transfer Assist Independent Hip Observation in Gait Stance Inadequate Extension Ankle/Foot Observation in Gait Swing Decreased Foot Clearance Timed Up and Go Test 1. Is the Timed Up and Go test result > yes or = to 12 seconds? 3. Is the Timed Up and Go Test result < no 12 seconds? [place] Feet Together/Eyes open/Stable Surface pass Feet Together/Eyes Closed/Stable Surface pass Feet Together/Eyes open/Unstable Surface fail Feet Together/Eyes Closed/Unstable fail Surface Outpatient Therapy Assessment Impairments Problems/Impairmments Impaired Endurance,Impaired Transfers,Impaired Gait Pattern,Impaired Walking, Impaired Standing,Impaired Stepping on Uneven Surface, Impaired Recreational Activities,Impaired Self Care/ Self Management Prognosis Rehab Potential Good Clinical Impression Consistent with Diagnosis Yes Short Term Goals Number of Weeks 4 Increase Range of Motion Yes: L hip ext by 10 deg Improve Gait Pattern with Assistive Yes: Normal gait with RW Device
--- NOTE | 2022-11-02 10:58 | HMH.RHREAS ---
Rehab Reassessment Rehab OP Re-assessment Start: 11/02/22 10:50 Freq: Status: Active Protocol: Document 11/02/22 10:51 WU (Rec: 11/02/22 10:58 WU [id number]) E-signed By Fred Guillaume PT Rehab Re-assessment Subjective Subjective Pt reports no c/o pain this date, 0/10. He reports he is using cane for mostambulation at this point, but remains very unsteady on uneven surfaces. Objective Objective Notes Timed Up and Go (TUG): 21 sec with straight cane. Tinetti Balance Assessment: Balance section= 02/12, Gait section= 11/08, Total Score= 15 /28. Gait: Pt continues to have difficulty achieving consistent stride length with L LE prosthesis which results in mild vaulting at times during stance phase of gait and decreased knee flexion during swing phase of gait on the L LE. L HIP: L hi continues to show flexion contracture. Assessment Progress Assessment Slower Than Expected Assessment Notes Pt is improving gait with cane instead of RW at this time. However, his balance, gait pattern, and L LE strength all remain decreased. His gait is unstable with cane and he is unable to ambulate without AD at this time. He continues to need skilled intervention to return to prior level of function, especially with gait . Patient goals met ST Goals Not Met ST,2,3 LT,2,3,4 Revised Goals none Plan Plan Continue per initial POC Frequency of Therapy 2 x/wk Duration of therapy 4 wks Time and Billing Re-Eval Time 19 Re-Eval Billing Units 1 PHYSICIAN CERTIFICATION: I certify the specified therapy services for Wade Chavez are required, authorized, and reviewed every 30 days.
--- NOTE | 2022-12-03 09:46 | HMH.RHREAS ---
Rehab Reassessment Rehab OP Re-assessment Start: 11/02/22 10:50 Freq: Status: Active Protocol: Document 12/03/22 09:30 WU (Rec: 12/03/22 09:45 PHORDONG [id number]) E-signed By Fred Guillaume, PT Rehab Re-assessment Subjective Subjective Pt reports, The only real trouble I'm having is on uneven ground and with going down steps. He reports having appt to adjust his prosthesis in 1 wk. Objective Objective Notes Timed Up and Go (TUG): 20 sec with straight cane. Tinetti Balance Assessment: Balance section= , Gait section= 01/08, Total Score= 21 /28. Gait: Stride length much more even on B LE during swing phase of gait. Since prosthetic shell was changed ~ 2 wks ago, pt has had increased difficulty with achieving L LE prosthetic knee flexion during late stance/ early swing phase of gait cycle. Assessment Progress Assessment Progressing as Expected Assessment Notes Pt continues to show significant improvement in static and dynamic standing balance. He has difficulty with mobility over uneven surfaces and gait pattern needs to improve for ability to perform all ADLs. He continues to need skilled intervention to return to prior level of function with all ADLs. Patient goals met ST,2,3,4 Goals Not Met LT,2,3,4 Revised Goals none Plan Plan Continue per initial POC Frequency of Therapy 2 x/wk Duration of therapy 4 wks Time and Billing Re-Eval Time 17 Re-Eval Billing Units 1 PHYSICIAN CERTIFICATION: I certify the specified therapy services for Wade Chavez are required, authorized, and reviewed every 30 days.
--- NOTE | 2022-12-29 11:24 | HMH.RHREAS ---
Rehab Reassessment Rehab OP Re-assessment Start: 11/02/22 10:50 Freq: Status: Active Protocol: Document 12/29/22 11:19 WU (Rec: 12/29/22 11:23 PHOKAYLENE [id number]) E-signed By Fred Guillaume, PT Rehab Re-assessment Subjective Subjective Pt reports he has improved in all areas of ambulation, but transfers into or out of the floor remain very problematic. Objective Objective Notes Timed Up and Go (TUG): 18 sec with straight cane. Gait: Stride length again much more even on B LE during swing phase of gait. Pt with improved L LE prosthetic knee flexion during late stance/ early swing phase of gait cycle, but it remains minimal and not even with R LE. Assessment Progress Assessment Progressing as Expected Assessment Notes Pt continues to make steady improvement in all mobility, with transfers from sit/stand and ambulation better with each treatment. 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 He continues to need skilled intervention to return to prior level of function. Patient goals met ST,2,3,4 Goals Not Met LT,2,3,4 Revised Goals none Plan Plan Continue per initial POC Frequency of Therapy 2 x/wk Duration of therapy 4 wks Time and Billing Re-Eval Time 15 Re-Eval Billing Units 1 PHYSICIAN CERTIFICATION: I certify the specified therapy services for Wade Chavez are required, authorized, and reviewed every 30 days.
== END 2023-01-25 08:05 | disposition home or self-care (01) ==
LOC: PT 08:00
PROVIDERS: PCP Internal Medicine Adolescent Medicine; Visit Provider Internal Medicine Adolescent Medicine
DX: M86.271 Subacute osteomyelitis, right ankle and foot (principal); I70.262 Atherosclerosis of native arteries of extremities with gangrene, left leg; Z89.612 Acquired absence of left leg above knee
CPT/HCPCS: 97110; 97112; 97163; 97164; 97530

== ENCOUNTER → 2023-03-21 10:12 | Outpatient (CLI) | payer MEDICARE, SELFPAY ==
[2023-03-21 10:52] LABS: Basophils # 0.1 K/mm3 (0-0.2); Basophils % 0.6 % (0.1-2.0); Eosinophils # 0.3 K/mm3 (0.0-0.4); Eosinophils % 3.1 % (0.1-12.0); Hematocrit 40.5 % (42.0-52.0); Hemoglobin 13.8 g/dL (14.1-18.0); Lymphocytes # 2.5 K/mm3 (0.7-4.5); Lymphocytes % 26.2 % (10-50); Mean Corpuscular HGB Conc 34.1 g/dL (31.8-35.4); Mean Corpuscular Hemoglobin 32.2 pg (27.0-31.2); Mean Corpuscular Volume 94.6 fl (80-94); Mean Platelet Volume 7.5 fl (7.4-10.4); Monocytes # 0.4 K/mm3 (0.1-1.0); Monocytes % 4.1 % (1.7-9.3); Neutrophils # 6.3 K/mm3 (1.8-7.8); Platelet Count 237 K/mm3 (142-424); Red Blood Count 4.28 M/mm3 (4.60-6.20); White Blood Count 9.6 K/mm3 (4.8-10.8)
[2023-03-21 12:01] LABS: Alanine Aminotransferase 17 U/L (12-78); Albumin Level 4.2 g/dl (3.5-5.0); Albumin/Globulin Ratio 1.4 (1.1-1.8); Alkaline Phosphatase 87 U/L (38-126); Anion Gap 14.3 mEq/L (5-15); Aspartate Amino Transferase 29 U/L (17-59); Bilirubin,Total 0.6 mg/dl (0.2-1.3); Blood Urea Nitrogen 21 mg/dl (9-20); Calcium 8.9 mg/dl (8.4-10.2); Carbon Dioxide 24 mmol/L (22.0-30.0); Chloride 101 mmol/L (98-107); Chol/HDL Ratio 3.3 (1-3.5); Cholesterol 172 mg/dl (140-200); Estimated Glomerular Filt Rate 47 ml/min (>60); GFR (African American) 57 ML/MIN (>60); Glucose 98 mg/dl (74-100); HDL Cholesterol 52 mg/dl (40-60); Potassium 4.3 mmoL/L (3.5-5.1); Sodium 135 mmol/L (136-145); Total Protein,Serum 7.2 g/dl (6.3-8.2); Triglycerides 174 mg/dl (30-150); VLDL Cholesterol 35 mg/dL (0-40)
[2023-03-21 12:12] LABS: Direct LDL Cholesterol 93.78 mg/dL (100-129)
== END ==
PROVIDERS: PCP Internal Medicine Adolescent Medicine; Visit Provider Internal Medicine Adolescent Medicine
DX: E78.5 Hyperlipidemia, unspecified (principal); I73.9 Peripheral vascular disease, unspecified; Z86.2 Personal history of diseases of the blood and blood-forming organs and certain disorders involving the immune mechanism
CPT/HCPCS: 36415; 80053; 80061; 85025

== ENCOUNTER 2023-11-11 11:00 | Outpatient (RCR) | payer MEDICARE, SELFPAY ==
--- NOTE | 2023-10-11 15:43 | HMH.PTOPEV ---
PT Outpatient Evaluation Rehab PT Outpatient Evaluation Start: 10/11/23 15:25 Freq: Status: Active Protocol: Document 10/11/23 15:25 PHOKAYLENE (Rec: 10/11/23 15:43 PHORDONG Laptop) E-signed By Fred Guillaume, PT Outpatient Therapy Subjective History Subjective History This is the initial PT eval for Wade Chavez, 68 yowm who presents with poor balance during transfers from kneeling. He has hx of L AKA amputation with a prosthetic which was recently revised due to changes in his residual limb. He reports that he has suffered several falls while trying to return to standing from a kneeling position. 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 He reports no recent falls from standing and is actually ambulating well overall with use of a cane. TUG was 14 sec in clinic this date. New diagnosis of cancer in past 12 No months? Chief Complaint Weakness Prior Functional Limitations Walking Current Functional Limitations Walking,Balance,Bending/ Stooping Symptom Description Activity Dependent Level of pain today (0-10) 0 Pain scale - at its best (0-10) 0 Pain scale - at its worst (0-10) 0 Balance Eval Current Functional Limitations Comment Difficulty with transfers from a kneeling or [id number] position. Hx of Falls Hx Falls Yes Number in last 6 months 6 Timed Up and Go Test 1. Is the Timed Up and Go test result > yes or = to 12 seconds? 3. Is the Timed Up and Go Test result < no 12 seconds? Tinetti Sitting Balance Sitting Balance Steady, safe Arising from Chair Ability to Arise Able, uses arms to help Attempts to Arise Arises on 1st attempt Standing Balance Immediate Standing Balance Steady with support Standing Balance Narrow stance w/o support Nudged Response Steady Standing with Eyes Closed Steady Turning Step Pattern Turning 360 Degrees Continuous steps Stability Turning 360 Degrees Steady Sitting Down Sitting Down Uses arms or unsteady Gait and Step Initiation of Gait No hesitancy Right Foot Step Length Does pass stance foot Right Foot Step Height Completely clears floor Left Foot Step Length Does pass stance foot Left Foot Step Height Completely clears floor Step Description Step Symmetry Step length appears equal Step Continuity Steps appear continuous Gait Description Path Description Straight Trunk Description No sway but posturing Walking Stance Heels together Scoring and Interpretation Tinetti Composite Score (points) 24 Interpretation of Scores At risk for falls (19-24) Outpatient Therapy Assessment Impairments Problems/Impairmments Impaired Balance,Impaired Tinnetti Score,Impaired Self Care/Self Management Prognosis Rehab Potential Good Clinical Impression Consistent with Diagnosis Yes Short Term Goals Number of Weeks 2 Increase Tinnetti Score Yes: <21 Patient to be Ind w/ HEP Yes Alf Goals Number of Weeks 4 Improve Transfers Yes: from kneeling without falls Return to Recreational Activities Yes Improve Balance Yes Increase Tinnetti Score Yes: <19 Patient to be Ind w/ HEP Yes Outpatient Therapy Plan of Care Treatment Plan May Include Therapeutic Exercise Including Home Yes Exercise Program Manual Therapy Techniques Yes Neuromuscular Re-education Yes Therapeutic Activities to Return to Yes Previous Functional/Work Level Gait Training Yes ADL/Self Care Education Yes Eval/Re-Eval Yes Frequency Times per week 1-2 Duration Number of Weeks 4 Addendums This patient is a candidate for social No or vocational rehab? Patient/Guardian verbally acknowledges Yes understanding of treatment program and consents to further treatment? Patient/Guardian verbally acknowledges Yes understanding of diagnosis, prognosis and goals for treatment? Eval Complexity PT Charges 25996 - High Complexity Shoulder/Elbow Eval Shoulder Objective Measurements Elbow Objective Measurements PHYSICIAN CERTIFICATION: I certify the specified therapy services for Wade Chavez are required, authorized, and reviewed every 30 days.
== END 2023-11-11 12:00 | disposition home or self-care (01) ==
LOC: PT 11:00
PROVIDERS: Visit Provider Internal Medicine Adolescent Medicine
DX: R29.898 Other symptoms and signs involving the musculoskeletal system (principal); Z89.612 Acquired absence of left leg above knee; I73.9 Peripheral vascular disease, unspecified; Z91.81 History of falling
CPT/HCPCS: 97110; 97163; 97530